=== PATIENT | female | born 1965 | race Caucasian/White ===

== ENCOUNTER → 2017-12-03 11:33 | Outpatient (POV) | payer OTHER, SELFPAY ==
[2017-12-03 11:39] VITALS: BP 107/75; PULSE 105; RESP 18; O2SAT 99
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
== END ==
PROVIDERS: PCP Nurse Practitioner; Visit Provider Nurse Anesthetist, Certified Registered
DX: M51.36 Other intervertebral disc degeneration, lumbar region (principal); M51.34 Other intervertebral disc degeneration, thoracic region
CPT/HCPCS: 99202

== ENCOUNTER → 2017-12-28 09:53 | Day surgery (SDC) | payer OTHER, SELFPAY ==
[2017-12-28 10:00] VITALS: BP 109/74; PULSE 73; RESP 18; TEMP 36.6; O2SAT 98; BMI 24.9
[2017-12-28 10:31] VITALS: BP 140/94; PULSE 71; RESP 20; O2SAT 99
[2017-12-28 10:35] VITALS: BP 128/85; PULSE 67; RESP 20; O2SAT 99
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
[2017-12-28 10:41] VITALS: BP 114/76; PULSE 73; RESP 16; O2SAT 99
== END ==
PROVIDERS: Family Provider Nurse Practitioner; PCP Nurse Practitioner; Visit Provider Anesthesiology
DX: M51.34 Other intervertebral disc degeneration, thoracic region (principal); S22.070A Wedge compression fracture of T9-T10 vertebra, initial encounter for closed fracture; V89.2XXA Person injured in unspecified motor-vehicle accident, traffic, initial encounter
CPT/HCPCS: 62321; J1040; Q9966

== ENCOUNTER → 2018-02-04 11:38 | Outpatient (POV) | payer OTHER, SELFPAY ==
[2018-02-04 11:44] VITALS: BP 116/69; PULSE 84; RESP 16; TEMP 36.7; O2SAT 98; BMI 26.2
--- NOTE | 2018-02-04 12:01 | HMH.PAINSOAP ---
[facility] Pain Management SOAP Note Subjective:: Patient is a pleasant 52-year-old white female who presents today after a thoracic epidural steroid injection. Patient reports 100% relief in her back pain. However she is now having increased right SI joint pain along with migraines. Patient has a history of migraines. She remembers taking something in the past however she is unsure of what. She states she had a migraine today that was so bad she was vomiting. She also is having charley horses and muscle cramps in her leg as well. Patient is currently on Lyrica 150 mg 1 p.o. twice daily she states that this does help her pain significantly. She denies any side effects to this medication. ROS General: no fever Respiratory: no cough, no shortness of air Cardiovascular/Peripheral Vascular: No chest pain, no edema, no shortness of breath. Gastrointestinal: no new onset incontinence Genitourinary: no new onset incontinence Musculoskeletal: Back pain, migraines, right SI pain Psychiatric: normal mood/ affect, Neurological: Migraines Objective:: Physical Exam General: Alert and oriented x3, no acute distress, pleasant and cooperative, [on room air] Lungs: Resps E/U, Symmetrical chest expansion, Eyes: PERRL Musculoskeletal: Flexion and extension of thoracic spine somewhat guarded secondary to pain, deep tendon reflexes normal, strength in upper and lower extremities [5/5], nightly antalgic gait noted, positive Surendra's test on the right side Neurological: speech clear, booster pump oiler equal, no gross sensory deficits Assessment:: Degenerative disc disease of the thoracic spine, previous compression fracture at T10. Right sacroiliitis, migraines Plan:: We will plan a SI joint injection for the patient on the right. Patient has tried anti-inflammatories with no relief. Patient has had good relief with injections in the past. Patient is taking Lyrica 150 mg twice daily. She takes this from her primary care physician we discussed increasing this to 3 times a day. If the primary care physician is not wanting to take over that I explained to the patient that we would be happy to take over. We will also call in Imitrex 25 mg 1 p.o. at onset of migraine to her your repeated 2 hours after if no relief. I will give her 15 pills. This note was dictated using voice recognition software and may contain errors or omissions
--- NOTE | 2018-02-04 12:04 | P.CONS_ITS ---
[facility] Pain Management SOAP Note Subjective:: Patient is a pleasant 52-year-old white female who presents today after a thoracic epidural steroid injection. Patient reports 100% relief in her back pain. However she is now having increased right SI joint pain along with migraines. Patient has a history of migraines. She remembers taking something in the past however she is unsure of what. She states she had a migraine today that was so bad she was vomiting. She also is having charley horses and muscle cramps in her leg as well. Patient is currently on Lyrica 150 mg 1 p.o. twice daily she states that this does help her pain significantly. She denies any side effects to this medication. ROS General: no fever Respiratory: no cough, no shortness of air Cardiovascular/Peripheral Vascular: No chest pain, no edema, no shortness of breath. Gastrointestinal: no new onset incontinence Genitourinary: no new onset incontinence Musculoskeletal: Back pain, migraines, right SI pain Psychiatric: normal mood/ affect, Neurological: Migraines Objective:: Physical Exam General: Alert and oriented x3, no acute distress, pleasant and cooperative, [ on room air] Lungs: Resps E/U, Symmetrical chest expansion, Eyes: PERRL Musculoskeletal: Flexion and extension of thoracic spine somewhat guarded secondary to pain, deep tendon reflexes normal, strength in upper and lower extremities [5/5], nightly antalgic gait noted, positive Surendra's test on the right side Neurological: speech clear, instrumentation technician equal, no gross sensory deficits Assessment:: Degenerative disc disease of the thoracic spine, previous compression fracture at T10. Right sacroiliitis, migraines Plan:: We will plan a SI joint injection for the patient on the right. Patient has tried anti-inflammatories with no relief. Patient has had good relief with injections in the past. Patient is taking Lyrica 150 mg twice daily. She takes this from her primary care physician we discussed increasing this to 3 times a day. If the primary care physician is not wanting to take over that I explained to the patient that we would be happy to take over. We will also call in Imitrex 25 mg 1 p.o. at onset of migraine to her your repeated 2 hours after if no relief. I will give her 15 pills. This note was dictated using voice recognition software and may contain errors or omissions
--- NOTE | 2018-02-04 16:34 | PC.PHONENOTE ---
called in Rx for Imitrex 25mg at onset of migraine, may repeat dose in 2 hours if migraine unrelieved, #15 with no refills. Rx called in to [facility] pharmacy
== END ==
PROVIDERS: Family Provider Nurse Practitioner; PCP Nurse Practitioner; Visit Provider Clinical Nurse Specialist Family Health
DX: M51.34 Other intervertebral disc degeneration, thoracic region (principal)
CPT/HCPCS: 99212

== ENCOUNTER 2018-02-15 14:23 | Day surgery (SDC) | payer OTHER, SELFPAY ==
[2018-02-15 14:53] VITALS: BP 119/79; PULSE 86; RESP 18; TEMP 36.7; O2SAT 98; BMI 26.7
--- NOTE | 2018-02-15 14:56 | PC.NURSE ---
PATIENT ALERT, ORIENTED AND APPEARS WITH NO DISTRESS DURING ASSESSMENT. NO LABORED BREATHING NOTED.
[2018-02-15 15:29] VITALS: BP 158/45; PULSE 81; RESP 20
[2018-02-15 15:30] VITALS: BP 145/58; PULSE 85; RESP 18
[2018-02-15 15:35] VITALS: BP 123/78; PULSE 77; RESP 16; O2SAT 100
--- NOTE | 2018-02-15 15:38 | HMH.PMPROC ---
- Procedure Date: 02/15/18 Time: 15:30 Anesthesiologist:: Kody Vela MD Complications:: None Pre-procedure Diagnosis:: Right sacroiliitis Post-procedure Diagnosis:: same Indications for Procedure:: This patient is a pleasant 52-year-old white female who presents today for right SI joint injection. Patient is having extreme point tenderness over right SI and numbness and tingling in her right leg. Patient is having difficulty sleeping. Patient rates the pain a 5 out of 10 today. Patient has been told the risks and benefits of the injection and she wishes to proceed with it. Patient has increased her Lyrica 150 mg to 3 times a day. She states that this has helped. We will take this over from her primary care physician. Procedure Details:: Right SI joint injection under fluoroscopy Informed consent was obtained and the risks and benefits of the procedure was going to the patient. Patient was taken to the procedure room. Patient was placed prone on the procedure table. The right hip was prepped using ChloraPrep. The skin and subcutaneous tissues were anesthetized using lidocaine. I placed a 22-gauge spinal needle into the inferior aspect of the right SI joint. Needle placement was confirmed with dye. After this we injected 5 mL bupivacaine 0.25% and Depo-Medrol 40 mg into the right SI joint. The patient tolerated the procedure well with no complication. Plan and Disposition:: We will follow-up with this patient in 2-3 weeks and reassess her symptoms at that time. We will take over her Lyrica 150 mg 1 p.o. 3 times daily. She has been instructed to call the office if she needs anything prior to her appointment.
== END 2018-02-15 15:40 | disposition home or self-care (01) ==
LOC: SC.PAINP 14:24
PROVIDERS: Family Provider Nurse Practitioner; PCP Nurse Practitioner; Visit Provider Anesthesiology
DX: M46.1 Sacroiliitis, not elsewhere classified (principal)
CPT/HCPCS: 27096; G0260; J1040; Q9966

== ENCOUNTER → 2018-03-04 13:14 | Outpatient (POV) | payer OTHER, SELFPAY ==
[2018-03-04 13:24] VITALS: BP 101/67; PULSE 84; RESP 18; TEMP 36.6; O2SAT 98; BMI 25.2
--- NOTE | 2018-03-04 13:42 | HMH.PAINSOAP ---
[facility] Pain Management SOAP Note Subjective:: Patient is a pleasant 52-year-old white female who presents today for follow-up after right SI injection. Patient states that this is helped with her right SI pain and denies having any pain at this time. She does have increased bursa pain bilateral hips. She states she just saw Dr. Nick Max who stated that this was due to her scoliosis. Dr. Max took her off her anti-inflammatories because she stated they were not helping very much. Patient states that Dr. Max wanted her to go to physical therapy but she was not interested in that at this time. She is interested in trying a different anti-inflammatory other than meloxicam. Patient also is on Lyrica 150 mg 1 p.o. 3 times daily. She states that this is helped significantly. Patient rates her pain a 5 out of 10 today. Patient has never tried a back brace. ROS General: no recent weight change, no fever, no sleep disturbances Respiratory: no cough, no shortness of air, no recurring pulmonary infections Cardiovascular/Peripheral Vascular: No chest pain, No palpitations, no edema, no shortness of breath. Gastrointestinal: no incontinence, normal bowel movements reported Genitourinary: no incontinence Musculoskeletal: Back pain, hip pain Psychiatric: normal mood/ affect Neurological: [denies weakness in extremities], [denies balance issues] Objective:: Physical Exam General: Alert and oriented x3, no acute distress, pleasant and cooperative, [on room air] Lungs: Resps E/U, Symmetrical chest expansion Eyes: PERRL Musculoskeletal: Flexion and extension of lumbar spine somewhat guarded secondary to pain, deep tendon reflexes normal, strength in upper and lower extremities [5/5], antalgic gait noted, extreme point tenderness over bilateral trochanteric bursa. Neurological: speech clear, public information officer equal, no gross sensory deficits Assessment:: Greater trochanteric bursitis of bilateral hips, sacroiliitis, low back pain Plan:: We will call in this patient 1 month of diclofenac 75 mg 1 p.o. twice daily. She is to continue her Lyrica 150 mg 1 p.o. 3 times daily. We will also give her a back brace to see if this helps stabilize her. We discussed potentially doing bursa injections in the future. I will follow-up with her in 1 month. This note was dictated using voice recognition software and may contain errors or omissions
--- NOTE | 2018-03-04 13:45 | P.CONS_ITS ---
[facility] Pain Management SOAP Note Subjective:: Patient is a pleasant 52-year-old white female who presents today for follow-up after right SI injection. Patient states that this is helped with her right SI pain and denies having any pain at this time. She does have increased bursa pain bilateral hips. She states she just saw Dr. Nick Max who stated that this was due to her scoliosis. Dr. Max took her off her anti-inflammatories because she stated they were not helping very much. Patient states that Dr. Max wanted her to go to physical therapy but she was not interested in that at this time. She is interested in trying a different anti-inflammatory other than meloxicam. Patient also is on Lyrica 150 mg 1 p.o. 3 times daily. She states that this is helped significantly. Patient rates her pain a 5 out of 10 today. Patient has never tried a back brace. ROS General: no recent weight change, no fever, no sleep disturbances Respiratory: no cough, no shortness of air, no recurring pulmonary infections Cardiovascular/Peripheral Vascular: No chest pain, No palpitations, no edema, no shortness of breath. Gastrointestinal: no incontinence, normal bowel movements reported Genitourinary: no incontinence Musculoskeletal: Back pain, hip pain Psychiatric: normal mood/ affect Neurological: [denies weakness in extremities], [denies balance issues] Objective:: Physical Exam General: Alert and oriented x3, no acute distress, pleasant and cooperative, [ on room air] Lungs: Resps E/U, Symmetrical chest expansion Eyes: PERRL Musculoskeletal: Flexion and extension of lumbar spine somewhat guarded secondary to pain, deep tendon reflexes normal, strength in upper and lower extremities [5/5], antalgic gait noted, extreme point tenderness over bilateral trochanteric bursa. Neurological: speech clear, tax expert equal, no gross sensory deficits Assessment:: Greater trochanteric bursitis of bilateral hips, sacroiliitis, low back pain Plan:: We will call in this patient 1 month of diclofenac 75 mg 1 p.o. twice daily. She is to continue her Lyrica 150 mg 1 p.o. 3 times daily. We will also give her a back brace to see if this helps stabilize her. We discussed potentially doing bursa injections in the future. I will follow-up with her in 1 month. This note was dictated using voice recognition software and may contain errors or omissions
--- NOTE | 2018-03-05 13:06 | PC.PHONENOTE ---
03/04/18-called in Rx for Diclofenac 75mg BID wiht no refills to pt's pharmacy
== END ==
PROVIDERS: Family Provider Nurse Practitioner; PCP Nurse Practitioner; Visit Provider Clinical Nurse Specialist Family Health
DX: M70.62 Trochanteric bursitis, left hip (principal); M70.61 Trochanteric bursitis, right hip
CPT/HCPCS: 99212

== ENCOUNTER → 2018-03-25 14:06 | Outpatient (POV) | payer OTHER, SELFPAY ==
[2018-03-25 14:14] VITALS: BP 103/50; PULSE 102; RESP 18; TEMP 36.6; O2SAT 99; BMI 26.9
--- NOTE | 2018-03-25 14:34 | HMH.PAINSOAP ---
[facility] Pain Management SOAP Note Subjective:: This patient is a pleasant 52-year-old white female who we have been treating for right hip pain. She previously had a right SI joint injection which helped her tremendously. She is also had a previous thoracic epidural steroid injection in the area of the T10 compression fracture. She did very well from her previous injections. Her pain is starting to return in her mid back in the area of the T10 compression fracture. I do believe she would be a candidate for repeat thoracic epidural steroid injection. She continues on Lyrica 150 mg 3 times a day as well as her diclofenac 75 mg twice a day. Objective:: Alert and oriented ?3 no acute distress. Patient does have an antalgic gait. She is tender over the midline of the thoracic spine. Motor strength of the lower extremities is 5/5. There is no gross sensory deficit. Assessment:: Previous T10 compression fracture with mid back pain and thoracic radicular symptoms. Plan:: We will seek approval for repeat thoracic epidural steroid injection at T10-T11. She has had great benefit from this in the past. Her pain is starting to return. We will plan on a thoracic epidural steroid injection as soon as approved at T10-T11.
== END ==
PROVIDERS: Family Provider Nurse Practitioner; PCP Nurse Practitioner; Visit Provider Anesthesiology
DX: M54.14 Radiculopathy, thoracic region (principal)
CPT/HCPCS: 99212

== ENCOUNTER → 2018-03-26 09:24 | Outpatient (CLI) | payer OTHER, SELFPAY ==
--- NOTE | 2018-03-26 09:29 | CT_ITS ---
CT abdomen pelvis w con CLINICAL INDICATION: Mid abdominal pressure, possible hernia ITS.REASON: VENTRAL HERNIA ORDERING PHYSICIAN: Surekha Cotto PATIENT AGE: 52 years TECHNIQUE: Axial images obtained with sagittal and coronal reformats. All CT scans at the facility use one or more dose reduction, viz: automated exposure control; ma/kV adjustment per patient size (including targeted exams where dose is matched to indication; i.e. head); or iterative reconstruction technique. PROCEDURE: Oral Contrast: Redicat IV Contrast: 75 mL's of Isovue-370. FINDINGS: Lung bases are clear. The liver, spleen, adrenal glands, pancreas, and kidneys have an unremarkable appearance. There has been a prior cholecystectomy. No ductal dilatation. No intestinal obstruction or free air. No evidence of appendicitis intestinal obstruction or free air or diverticulitis. There is mild amount retained colonic feces. There is a tiny umbilical hernia containing fat. No other abdominal wall hernia is evident. Surgical clips are present in the external iliac region bilaterally. Scattered small lymph nodes are present in the inguinal region. No adenopathy. Prior hysterectomy. No acute bony anomalies. IMPRESSION: 1. No acute abdominal or pelvic findings. 2. Tiny umbilical hernia. No other abdominal wall hernia 3. Mild amount retained colonic feces/constipation
== END ==
PROVIDERS: Family Provider Nurse Practitioner; PCP Nurse Practitioner; Visit Provider Nurse Practitioner Family
DX: K43.9 Ventral hernia without obstruction or gangrene (principal)
CPT/HCPCS: 74177; Q9967

== ENCOUNTER → 2018-04-01 13:30 | Outpatient (POV) | payer OTHER, SELFPAY ==
[2018-04-01 13:32] VITALS: BP 102/74; PULSE 104; RESP 18; TEMP 36.8; O2SAT 99; BMI 27.1
--- NOTE | 2018-04-01 14:26 | HMH.PAINSOAP ---
[facility] Pain Management SOAP Note Subjective:: Patient is a pleasant 52-year-old white female who presents today for follow-up. Patient is on the schedule for thoracic epidural steroid injection at T10-T11 due to chronic compression fracture. Patient wanted to discuss today her right SI joint pain. Patient has had injections in the past and her right SI with significant relief up to 80% for 8 weeks. Patient states that she is now starting to have this pain returned. Patient is wearing her back brace she states it does help a little bit. She continues on her Lyrica 150 mg 1 p.o. 3 times daily. Patient states the diclofenac that she is on has not been working for her and would like to try a different anti-inflammatory. Patient has not tried the Celebrex. She rates her pain an 8 out of 10 today. ROS General: no recent weight change, no fever, no sleep disturbances Respiratory: no cough, no shortness of air, no recurring pulmonary infections Cardiovascular/Peripheral Vascular: No chest pain, No palpitations, no edema, no shortness of breath. Gastrointestinal: no incontinence, normal bowel movements reported Genitourinary: no incontinence Musculoskeletal: SI joint pain, thoracic back pain Psychiatric: normal mood/ affect, [denies depression], [denies anxiety] Neurological: [denies weakness in extremities], [denies balance issues] Objective:: Physical Exam General: Alert and oriented x3, no acute distress, pleasant and cooperative, [on room air] Lungs: Resps E/U, Symmetrical chest expansion, Eyes: PERRL Musculoskeletal: Flexion and extension of thoracic spine somewhat guarded secondary to pain, deep tendon reflexes normal, strength in upper and lower extremities [5/5], [abnormal gait noted], positive Surendra's test on the right side, extreme point tenderness over right SI joint Neurological: speech clear, 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 Patient has had good relief with these in the past. Patient failed anti-inflammatories, medications, physical therapy. We will try the patient also on Celebrex 100 mg 1 p.o. twice daily. I will follow-up with this patient after her injection. This note was dictated using voice recognition software and may contain errors or omissions
--- NOTE | 2018-04-01 14:29 | P.CONS_ITS ---
[facility] Pain Management SOAP Note Subjective:: Patient is a pleasant 52-year-old white female who presents today for follow- up. Patient is on the schedule for thoracic epidural steroid injection at T10- T11 due to chronic compression fracture. Patient wanted to discuss today her right SI joint pain. Patient has had injections in the past and her right SI with significant relief up to 80% for 8 weeks. Patient states that she is now starting to have this pain returned. Patient is wearing her back brace she states it does help a little bit. She continues on her Lyrica 150 mg 1 p.o. 3 times daily. Patient states the diclofenac that she is on has not been working for her and would like to try a different anti-inflammatory. Patient has not tried the Celebrex. She rates her pain an 8 out of 10 today. ROS General: no recent weight change, no fever, no sleep disturbances Respiratory: no cough, no shortness of air, no recurring pulmonary infections Cardiovascular/Peripheral Vascular: No chest pain, No palpitations, no edema, no shortness of breath. Gastrointestinal: no incontinence, normal bowel movements reported Genitourinary: no incontinence Musculoskeletal: SI joint pain, thoracic back pain Psychiatric: normal mood/ affect, [denies depression], [denies anxiety] Neurological: [denies weakness in extremities], [denies balance issues] Objective:: Physical Exam General: Alert and oriented x3, no acute distress, pleasant and cooperative, [ on room air] Lungs: Resps E/U, Symmetrical chest expansion, Eyes: PERRL Musculoskeletal: Flexion and extension of thoracic spine somewhat guarded secondary to pain, deep tendon reflexes normal, strength in upper and lower extremities [5/5], [abnormal gait noted], positive Surendra's test on the right side, extreme point tenderness over right SI joint Neurological: speech clear, galley worker equal, no gross sensory deficits Assessment:: Sacroiliitis, previous T10 compression fracture with mid back pain and thoracic radicular symptoms Plan:: We will seek approval for a SI joint injection on the right side as well. Patient has had good relief with these in the past. Patient failed anti- inflammatories, medications, physical therapy. We will try the patient also on Celebrex 100 mg 1 p.o. twice daily. I will follow-up with this patient after her injection. This note was dictated using voice recognition software and may contain errors or omissions
--- NOTE | 2018-04-01 16:16 | PC.PHONENOTE ---
called in Rx for Celebrex 100mg BID with 1 refill
== END ==
PROVIDERS: Family Provider Nurse Practitioner; PCP Nurse Practitioner; Visit Provider Clinical Nurse Specialist Family Health
DX: M46.1 Sacroiliitis, not elsewhere classified (principal); M54.14 Radiculopathy, thoracic region
CPT/HCPCS: 99212

== ENCOUNTER → 2018-05-07 14:30 | Outpatient (CLI) | payer OTHER, SELFPAY ==
--- NOTE | 2018-05-07 14:34 | XR_ITS ---
XR foot wt bearing LT 3V HISTORY: Foot pain ITS.REASON: pain ORDERING PHYSICIAN: Debbie العراقي DPM PATIENT AGE: 52 years COMPARISON: None FINDINGS: No fracture or dislocation. No lytic or blastic change. There is normal mineralization.. The joint spaces are well-preserved. No significant degenerative/arthritic changes. No erosive changes evident. IMPRESSION: Negative, no acute finding
--- NOTE | 2018-05-07 14:34 | XR_ITS ---
XR foot wt bearing RT 3V HISTORY: Pain, foot pain ITS.REASON: pain ORDERING PHYSICIAN: Debbie العراقي DPM PATIENT AGE: 52 years COMPARISON: None FINDINGS: No fracture or dislocation. No lytic or blastic change. There is normal mineralization.. The joint spaces are well-preserved. No significant degenerative/arthritic changes. No erosive changes evident. IMPRESSION: Negative, no acute finding
== END ==
PROVIDERS: PCP Nurse Practitioner; Visit Provider Podiatrist
DX: M79.671 Pain in right foot (principal); M79.672 Pain in left foot
CPT/HCPCS: 73630

== ENCOUNTER → 2018-06-10 11:16 | Outpatient (POV) | payer OTHER, SELFPAY ==
[2018-06-10 11:27] VITALS: BP 111/83; PULSE 104; RESP 18; O2SAT 98; BMI 27.8
--- NOTE | 2018-06-10 11:34 | HMH.PAINSOAP ---
[facility] Pain Management SOAP Note Subjective:: Patient is a pleasant 52-year-old white female who is following up after recent thoracic epidural steroid injection. Patient is doing much better today. She rates her pain 3 out of 10 today. Patient has been going to podiatry along with acupuncture in getting stability tape placed. Patient's doing well she has had a lift in her shoe she states that her pain has decreased since then. Patient states she would like to switch back from Lyrica to gabapentin due to weight gain I believe it would be okay. Patient has had gabapentin in the past with no issues. Patient was put on meloxicam by her puttier entered she was not taking any other NSAIDs. ROS General: no recent weight change, no fever, no sleep disturbances Respiratory: no cough, no shortness of air, no recurring pulmonary infections Cardiovascular/Peripheral Vascular: No chest pain, No palpitations, no edema, no shortness of breath. Gastrointestinal: no incontinence, normal bowel movements reported Genitourinary: no incontinence Musculoskeletal: Back pain Psychiatric: normal mood/ affect Neurological: [denies weakness in extremities], [denies balance issues] Objective:: Physical Exam General: Alert and oriented x3, no acute distress, pleasant and cooperative, [on room air] Lungs: Resps E/U, Symmetrical chest expansion Eyes: PERRL Musculoskeletal: Flexion and extension of lumbar spine somewhat guarded secondary to pain, deep tendon reflexes normal, strength in upper and lower extremities [5/5], slightly antalgic gait noted Neurological: speech clear, 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 3 times daily for the patient. Patient's [facility] #[id number] reviewed and appropriate. Dr. Vela is reviewed this chart and agrees with this plan of care. Patient is to continue with her acupuncture and podiatry. Patient's been instructed to call the office if she has any issues prior to her next appointment. This note was dictated using voice recognition software and may contain errors or omissions
--- NOTE | 2018-06-10 11:37 | P.CONS_ITS ---
[facility] Pain Management SOAP Note Subjective:: Patient is a pleasant 52-year-old white female who is following up after recent thoracic epidural steroid injection. Patient is doing much better today. She rates her pain 3 out of 10 today. Patient has been going to podiatry along with acupuncture in getting stability tape placed. Patient's doing well she has had a lift in her shoe she states that her pain has decreased since then. Patient states she would like to switch back from Lyrica to gabapentin due to weight gain I believe it would be okay. Patient has had gabapentin in the past with no issues. Patient was put on meloxicam by her enrolled nurse entered she was not taking any other NSAIDs. ROS General: no recent weight change, no fever, no sleep disturbances Respiratory: no cough, no shortness of air, no recurring pulmonary infections Cardiovascular/Peripheral Vascular: No chest pain, No palpitations, no edema, no shortness of breath. Gastrointestinal: no incontinence, normal bowel movements reported Genitourinary: no incontinence Musculoskeletal: Back pain Psychiatric: normal mood/ affect Neurological: [denies weakness in extremities], [denies balance issues] Objective:: Physical Exam General: Alert and oriented x3, no acute distress, pleasant and cooperative, [ on room air] Lungs: Resps E/U, Symmetrical chest expansion Eyes: PERRL Musculoskeletal: Flexion and extension of lumbar spine somewhat guarded secondary to pain, deep tendon reflexes normal, strength in upper and lower extremities [5/5], slightly antalgic gait noted Neurological: speech clear, home care coordinator equal, no gross sensory deficits Assessment:: Degenerative disc disease of the lumbar spine and thoracic spine Plan:: We will follow-up with the patient in 3 months we will call in gabapentin 300 mg p.o. 3 times daily for the patient. Patient's [facility] #[id number] reviewed and appropriate. Dr. Vela is reviewed this chart and agrees with this plan of care. Patient is to continue with her acupuncture and podiatry. Patient's been instructed to call the office if she has any issues prior to her next appointment. This note was dictated using voice recognition software and may contain errors or omissions
== END ==
PROVIDERS: Family Provider Nurse Practitioner; PCP Nurse Practitioner; Visit Provider Clinical Nurse Specialist Family Health
DX: M51.36 Other intervertebral disc degeneration, lumbar region (principal); M51.34 Other intervertebral disc degeneration, thoracic region
CPT/HCPCS: 99212

== ENCOUNTER → 2018-08-19 10:20 | Outpatient (POV) | payer OTHER, SELFPAY ==
[2018-08-19 10:35] VITALS: BP 112/76; PULSE 83; RESP 18; O2SAT 98; BMI 25.7
--- NOTE | 2018-08-19 10:47 | HMH.PAINSOAP ---
[facility] Pain Management SOAP Note Subjective:: Patient is a 52-year-old white female who presents today for follow-up. Patient has been trying some alternative therapies for her low back and neck pain. Patient has tried cupping which made it worse. Patient had a injection in her foot which she states did help quite a bit. Patient is currently on meloxicam. Patient and I had discussed in neurostimulator in the past however at this time she is not interested in it. Patient rates her pain a 5 out of 10 today. Patient is currently on gabapentin 300 mg 1 p.o. 3 times daily she states that this helps up to 60% at times. Patient's [facility] reviewed and appropriate. Patient would like an injection in her right hip. Patient has extreme tenderness over her right greater trochanteric bursa. Patient would also like to talk about physical therapy and dry needling. ROS General: no recent weight change, no fever, no sleep disturbances Respiratory: no cough, no shortness of air, no recurring pulmonary infections Cardiovascular/Peripheral Vascular: No chest pain, No palpitations, no edema, no shortness of breath. Gastrointestinal: no incontinence, normal bowel movements reported Genitourinary: no incontinence Musculoskeletal: Right hip pain, low back pain, neck pain Psychiatric: normal mood/ affect Neurological: [denies weakness in extremities], [denies balance issues] Objective:: Physical Exam General: Alert and oriented x3, no acute distress, pleasant and cooperative, [on room air] Lungs: Resps E/U, Symmetrical chest expansion, Eyes: PERRL Musculoskeletal: Flexion and extension of lumbar and cervical spine somewhat guarded secondary to pain, deep tendon reflexes normal, strength in upper and lower extremities [5/5], antalgic gait noted, extreme point tenderness over right greater trochanteric bursa Neurological: speech clear, medical aide equal, no gross sensory deficits Assessment:: Degenerative disc disease lumbar spine, greater trochanteric bursitis, neck pain, myofascial pain Plan:: We will schedule right greater trochanteric bursa injection for the patient. We will also set her up for dry needling with physical therapy to see if this is beneficial. Patient will continue on her gabapentin 300 mg 1 p.o. 3 times daily and her meloxicam. Patient's [facility] has been appropriate. Dr. Vela is reviewed this chart and agrees with this plan of care. This note was dictated using voice recognition software and may contain errors or omissions
--- NOTE | 2018-08-19 10:50 | P.CONS_ITS ---
[facility] Pain Management SOAP Note Subjective:: Patient is a 52-year-old white female who presents today for follow-up. Patient has been trying some alternative therapies for her low back and neck pain. Patient has tried cupping which made it worse. Patient had a injection in her foot which she states did help quite a bit. Patient is currently on meloxicam. Patient and I had discussed in neurostimulator in the past however at this time she is not interested in it. Patient rates her pain a 5 out of 10 today. Patient is currently on gabapentin 300 mg 1 p.o. 3 times daily she states that this helps up to 60% at times. Patient's [facility] reviewed and appropriate. Patient would like an injection in her right hip. Patient has extreme tend erness over her right greater trochanteric bursa. Patient would also like to talk about physical therapy and dry needling. ROS General: no recent weight change, no fever, no sleep disturbances Respiratory: no cough, no shortness of air, no recurring pulmonary infections Cardiovascular/Peripheral Vascular: No chest pain, No palpitations, no edema, no shortness of breath. Gastrointestinal: no incontinence, normal bowel movements reported Genitourinary: no incontinence Musculoskeletal: Right hip pain, low back pain, neck pain Psychiatric: normal mood/ affect Neurological: [denies weakness in extremities], [denies balance issues] Objective:: Physical Exam General: Alert and oriented x3, no acute distress, pleasant and cooperative, [on room air] Lungs: Resps E/U, Symmetrical chest expansion, Eyes: PERRL Musculoskeletal: Flexion and extension of lumbar and cervical spine somewhat guarded secondary to pain, deep tendon reflexes normal, strength in upper and lower extremities [5/5], antalgic gait noted, extreme point tenderness over right greater trochanteric bursa Neurological: speech clear, corporate administrator equal, no gross sensory deficits Assessment:: Degenerative disc disease lumbar spine, greater trochanteric bursitis, neck pain, myofascial pain Plan:: We will schedule right greater trochanteric bursa injection for the patient. We will also set her up for dry needling with physical therapy to see if this is beneficial. Patient will continue on her gabapentin 300 mg 1 p.o. 3 times daily and her meloxicam. Patient's [facility] has been appropriate. Dr. Vela is reviewed this chart and agrees with this plan of care. This note was dictated using voice recognition software and may contain errors or omissions
== END ==
PROVIDERS: Family Provider Nurse Practitioner; PCP Nurse Practitioner; Visit Provider Clinical Nurse Specialist Family Health
DX: M51.36 Other intervertebral disc degeneration, lumbar region (principal); M70.61 Trochanteric bursitis, right hip; M54.2 Cervicalgia
CPT/HCPCS: 99213

== ENCOUNTER 2018-08-29 15:30 | Outpatient (RCR) | payer OTHER, SELFPAY ==
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
== END 2018-08-29 15:31 | disposition home or self-care (01) ==
LOC: PT 15:30
PROVIDERS: Family Provider Nurse Practitioner; PCP Nurse Practitioner; Visit Provider Clinical Nurse Specialist Family Health
DX: M54.2 Cervicalgia (principal); M54.6 Pain in thoracic spine; M25.551 Pain in right hip
CPT/HCPCS: 97010; 97014; 97140; 97163; G0283

== ENCOUNTER → 2018-09-16 13:23 | Outpatient (POV) | payer OTHER, SELFPAY ==
[2018-09-16 13:42] VITALS: BP 107/76; PULSE 110; RESP 18; O2SAT 98; BMI 21.4
--- NOTE | 2018-09-16 14:10 | P.CONS_ITS ---
[facility] Pain Management SOAP Note Subjective:: Patient is a pleasant 52-year-old white female who presents today for follow-up after right greater trochanteric bursa injection. Patient states that her pain is 90% relieved in this area. Patient states her low back is what is giving her trouble today she rates her pain a 4 out of 10. Patient is also having migraines and will be getting a daith piercings soon. Patient is on gabapentin 300 mg 1 p.o. 3 times daily. Patient is wondering she can increase to 400 mg today. Patient is done well with injective therapy in the past. Patient is interested in a lower epidural injection. ROS General: no recent weight change, no fever, no sleep disturbances Respiratory: no cough, no shortness of air, no recurring pulmonary infections Cardiovascular/Peripheral Vascular: No chest pain, No palpitations, no edema, no shortness of breath. Gastrointestinal: no incontinence, normal bowel movements reported Genitourinary: no incontinence Musculoskeletal: Back pain Psychiatric: normal mood/ affect Neurological: [denies weakness in extremities], [denies balance issues] Objective:: Physical Exam General: Alert and oriented x3, no acute distress, pleasant and cooperative, [on room air] Lungs: Resps E/U, Symmetrical chest expansion, Eyes: PERRL Musculoskeletal: Flexion and extension of lumbar spine somewhat guarded secondary to pain, deep tendon reflexes normal, strength in upper and lower extremities [5/5], slightly antalgic gait noted Neurological: speech clear, 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 We will also call in gabapentin from 400 mg [address] Vela is reviewed this chart and agrees with this plan of care. I will follow-up with her after her injection. Patient is continuing a home stretching exercise program. This note was dictated using voice recognition software and may contain errors or omissions
== END ==
PROVIDERS: Family Provider Nurse Practitioner; PCP Nurse Practitioner; Visit Provider Clinical Nurse Specialist Family Health
DX: M51.16 Intervertebral disc disorders with radiculopathy, lumbar region (principal); G43.909 Migraine, unspecified, not intractable, without status migrainosus
CPT/HCPCS: 99213

== ENCOUNTER → 2018-11-06 15:46 | Outpatient (POV) | payer OTHER, SELFPAY | DX: Z00.00 Encounter for general adult medical examination without abnormal findings (principal) ==

== ENCOUNTER → 2018-12-09 15:03 | Outpatient (POV) | payer OTHER, SELFPAY ==
[2018-12-09 15:17] VITALS: BP 103/73; PULSE 98; RESP 18; O2SAT 99; BMI 23.8
--- NOTE | 2018-12-10 08:29 | HMH.PAINSOAP ---
[facility] Pain Management SOAP Note Subjective:: Is a pleasant 53-year-old white female who presents today for discussion in regards to her next moving her pain generating. Patient has degenerative disc disease thoracic and lumbar spine with radiculopathy. Patient has been getting epidural injections and SI joint injections with some relief however it has not been long-term. Patient has arthritis. Patient is on anti-inflammatories. She is also been on medications for gabapentin to help with her pain. Patient is currently going to counseling to help cope with her pain. Patient and I had a long discussion in regards to our next move. We discussed her intrathecal pain pump. I discussed with her that this is not going to be fixing her pain however it may help control it. Our goal is to get her to 50% pain relief from where she is now and much more functional. Patient would like to pursue this. She is not on any anti-inflammatories. She is tried and failed physical therapy, chiropractic therapy, massage therapy, medications, anti-inflammatories. She is continuing a home stretching program. She rates her pain an 8 out of 10 today. ROS General: no recent weight change, no fever, no sleep disturbances Respiratory: no cough, no shortness of air, no recurring pulmonary infections Cardiovascular/Peripheral Vascular: No chest pain, No palpitations, no edema, no shortness of breath. Gastrointestinal: no incontinence, normal bowel movements reported Genitourinary: no incontinence Musculoskeletal: Back pain, leg pain Psychiatric: normal mood/ affect Neurological: [denies weakness in extremities], [denies balance issues] Objective:: Physical Exam General: Alert and oriented x3, no acute distress, pleasant and cooperative, [on room air] Lungs: Resps E/U, Symmetrical chest expansion, Eyes: PERRL Musculoskeletal: Flexion and extension of lumbar spine somewhat guarded secondary to pain, deep tendon reflexes normal, strength in upper and lower extremities [5/5], [abnormal gait noted] Neurological: speech clear, interventional radiologist equal, no gross sensory deficits Assessment:: Degenerative disc disease thoracic and lumbar spine with lumbar radiculopathy Plan:: We will set up a intrathecal pain pump trial for the patient I believe that this would be beneficial. Patient is allergic to codeine however she has had morphine previously with no issue. If she is successful we will plan on an implant of a morphine intrathecal pain pump.\ This note was dictated using voice recognition software and may contain errors or omissions
== END ==
PROVIDERS: PCP Nurse Practitioner Family; Visit Provider Clinical Nurse Specialist Family Health
DX: M51.34 Other intervertebral disc degeneration, thoracic region (principal); M51.16 Intervertebral disc disorders with radiculopathy, lumbar region
CPT/HCPCS: 99213

== ENCOUNTER → 2018-12-30 14:47 | Outpatient (POV) | payer OTHER, SELFPAY ==
[2018-12-30 14:59] VITALS: BP 101/70; PULSE 100; RESP 18; O2SAT 98; BMI 25.2
--- NOTE | 2018-12-30 15:11 | P.CONS_ITS ---
[facility] Pain Management SOAP Note Subjective:: Is a pleasant 53-year-old white female who presents today for follow-up. Patient is moving towards a intrathecal pain pump trial. I believe it would be beneficial for her. She states that she has some reservations however we discussed this I did encourage her to complete the trial prior to making a decision on whether it is beneficial for her pain or not. Patient has had multiple injections but no long-term relief. She is currently on gabapentin 400 mg 1 p.o. 3 times daily. She would like to discuss changing this medication and increasing it. She denies any side effects. ROS General: no recent weight change, no fever, no sleep disturbances Respiratory: no cough, no shortness of air, no recurring pulmonary infections Cardiovascular/Peripheral Vascular: No chest pain, No palpitations, no edema, no shortness of breath. Gastrointestinal: no incontinence, normal bowel movements reported Genitourinary: no incontinence Musculoskeletal: Back pain, leg pain Psychiatric: normal mood/ affect Neurological: [denies weakness in extremities], [denies balance issues] Objective:: Physical Exam General: Alert and oriented x3, no acute distress, pleasant and cooperative, [on room air] Lungs: Resps E/U, Symmetrical chest expansion, Eyes: PERRL Musculoskeletal: Flexion and extension of lumbar spine somewhat guarded secondary to pain, deep tendon reflexes normal, strength in upper and lower extremities [5/5], [abnormal gait noted] Neurological: speech clear, linen room worker equal, no gross sensory deficits Assessment:: Degenerative disc disease lumbar spine with lumbar radiculopathy Plan:: We will set up for intrathecal pain pump trial for her. We will increase her gabapentin to 800 mg 1 p.o. twice daily. I will follow-up with her after her trial. Dr. Vela has reviewed this note and agrees with this plan of care. This note was dictated using voice recognition software and may contain errors or omissions
== END ==
PROVIDERS: PCP Nurse Practitioner; Visit Provider Clinical Nurse Specialist Family Health
DX: M51.16 Intervertebral disc disorders with radiculopathy, lumbar region (principal)
CPT/HCPCS: 99213

== ENCOUNTER → 2019-01-07 16:00 | Outpatient (CLI) | payer OTHER, SELFPAY ==
--- NOTE | 2019-01-07 16:06 | XR_ITS ---
XR foot wt bearing LT 3V HISTORY: ITS.REASON: pain ORDERING PHYSICIAN: Debbie العراقي DPM PATIENT AGE: 53 years COMPARISON: None FINDINGS: No fracture or dislocation. No lytic or blastic change. There is normal mineralization.. The joint spaces are well-preserved. No significant degenerative/arthritic changes. No erosive changes evident. IMPRESSION: Negative, no acute finding
--- NOTE | 2019-01-07 16:10 | XR_ITS ---
XR foot wt bearing RT 3V HISTORY: ITS.REASON: pain ORDERING PHYSICIAN: Debbie العراقي DPM PATIENT AGE: 53 years COMPARISON: None FINDINGS: No fracture or dislocation. No lytic or blastic change. There is normal mineralization.. The joint spaces are well-preserved. No significant degenerative/arthritic changes. No erosive changes evident. IMPRESSION: Negative, no acute finding
== END ==
PROVIDERS: PCP Nurse Practitioner; Visit Provider Podiatrist
DX: M19.071 Primary osteoarthritis, right ankle and foot (principal); M19.072 Primary osteoarthritis, left ankle and foot
CPT/HCPCS: 73630

== ENCOUNTER → 2019-01-27 15:01 | Outpatient (CLI) | payer OTHER, SELFPAY ==
--- NOTE | 2019-01-27 15:04 | XR_ITS ---
XR chest 2V HISTORY: ITS.REASON: COUGH ORDERING PHYSICIAN: Kavitha Daniels PATIENT AGE: 53 years COMPARISON: 04/16/2014 FINDINGS: The cardiomediastinal silhouette and pulmonary vascularity are within normal limits. There are slight increased markings in the right infrahilar region which may be due to an area of atelectasis or infiltrate. The remaining lungs are clear. No acute bony findings. There is lumbar scoliosis convex left. IMPRESSION: Right infrahilar infiltrate
== END ==
PROVIDERS: PCP Nurse Practitioner; Visit Provider Nurse Practitioner
DX: R05 Cough (principal)
CPT/HCPCS: 71046

== ENCOUNTER → 2019-02-28 12:05 | Outpatient (CLI) | payer OTHER, SELFPAY ==
--- NOTE | 2019-02-28 12:10 | XR_ITS ---
XR hip RT 2-3V w/pelvis Ordering Physician: Yola Moore Patient Age: 53 years: Female HISTORY: ITS.REASON: RT HIP PAIN right hip pain. TECHNIQUE: AP and frog-leg view right hip along with AP pelvis. COMPARISON : CT abdomen pelvis 07/18/2018 FINDINGS The right hip is intact with no fracture. Femoral head and neck intact. Hip joint spaces well-maintained bilaterally. Osseous pelvis is intact. Sacrum and iliac bone and pubis superior and inferior ramus appear satisfactory. Lungs are well mineralized. . very numerous vascular clips & postsurgical changes are seen along iliac chains and/or pelvic sidewalls bilaterally bilaterally.-similar appearance seen on last year CT. Mild levoscoliosis lumbar spine partially imaged. IMPRESSION: Right hip is intact. Osseous pelvis intact.
== END ==
PROVIDERS: PCP Family Medicine; Visit Provider Nurse Practitioner Family
DX: M25.551 Pain in right hip (principal)
CPT/HCPCS: 73502

== ENCOUNTER → 2019-03-18 09:52 | Outpatient (CLI) | payer OTHER, SELFPAY ==
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
== END ==
PROVIDERS: PCP Nurse Practitioner Family; Visit Provider Orthopaedic Surgery Adult Reconstructive Orthopaedic Surgery
DX: M54.5 Low back pain (principal)
CPT/HCPCS: 72148; 76376

== ENCOUNTER → 2019-03-24 09:01 | Outpatient (POV) | payer OTHER, SELFPAY ==
[2019-03-24 09:08] VITALS: BP 113/72; PULSE 69; RESP 18; O2SAT 98; BMI 25.3
--- NOTE | 2019-03-24 09:31 | P.CONS_ITS ---
[facility] Pain Management SOAP Note Subjective:: Is a pleasant 53-year-old white female who presents today for follow-up. Patient has been doing well on her anti-inflammatories. Patient is currently on gabapentin 800 mg 1 p.o. twice daily. She states that helping her however most of her pain is in her right hip. She was just seen by an orthopedic who suggested SI joint injections. I do believe that would be beneficial. She does have a positive Maulik's test, thigh thrust test, SI joint compression test and positive Martha test on the right side. She also has extreme pain over her right greater trochanteric bursa. She rates her pain a 5 out of 10 today. ROS General: no recent weight change, no fever, no sleep disturbances Respiratory: no cough, no shortness of air, no recurring pulmonary infections Cardiovascular/Peripheral Vascular: No chest pain, No palpitations, no edema, no shortness of breath. Gastrointestinal: no incontinence, normal bowel movements reported Genitourinary: no incontinence Musculoskeletal: Right hip pain Psychiatric: normal mood/ affect Neurological: [denies weakness in extremities], [denies balance issues] Objective:: Physical Exam General: Alert and oriented x3, no acute distress, pleasant and cooperative, [on room air] Lungs: Resps E/U, Symmetrical chest expansion, Eyes: PERRL Musculoskeletal: Flexion and extension of lumbar spine somewhat guarded secondary to pain, deep tendon reflexes normal, strength in upper and lower extremities [5/5], antalgic gait noted, extreme point tenderness over right greater trochanteric bursa and right SI joint. Neurological: speech clear, dairy technologist equal, no gross sensory deficits Assessment:: Sacroiliitis, bursitis Plan:: We will set up a right SI joint injection right greater trochanteric bursa injection. I will follow-up with the patient after injection and reassess her symptoms at that time she is been instructed to call the office if she has any issues prior to next appointment she has had injections in the past with good relief. Dr. Vela has reviewed this note and agrees with this plan of care. This note was dictated using voice recognition software and may contain errors or omissions
== END ==
PROVIDERS: PCP Nurse Practitioner Family; Visit Provider Clinical Nurse Specialist Family Health
DX: M46.1 Sacroiliitis, not elsewhere classified (principal); M71.9 Bursopathy, unspecified
CPT/HCPCS: 99212

== ENCOUNTER → 2019-04-28 11:02 | Outpatient (POV) | payer OTHER, SELFPAY ==
--- NOTE | 2019-04-28 11:18 | HMH.PAINSOAP ---
[facility] Pain Management SOAP Note Subjective:: Patient is a pleasant 53-year-old white female who presents today for follow-up after right SI joint injection right greater trochanteric bursa injection. Patient states that the SI joint pain has been alleviated however she rates her right hip pain 8 out of 10. She seen Dr. ORION luna for this. She has an appointment with him this . Patient is tried and failed physical therapy along with injective therapy, anti-inflammatories and medication. Patient and I have talked about implantable options however she is unsure of this at this time. I do believe that she should follow-up with her Ortho and see what is available to her in that realm. ROS General: no recent weight change, no fever, no sleep disturbances Respiratory: no cough, no shortness of air, no recurring pulmonary infections Cardiovascular/Peripheral Vascular: No chest pain, No palpitations, no edema, no shortness of breath. Gastrointestinal: no incontinence, normal bowel movements reported Genitourinary: no incontinence Musculoskeletal: Right hip pain Psychiatric: normal mood/ affect, Neurological: [denies weakness in extremities], [denies balance issues] Objective:: Physical Exam General: Alert and oriented x3, no acute distress, pleasant and cooperative, [on room air] Lungs: Resps E/U, Symmetrical chest expansion, Eyes: PERRL Musculoskeletal: Flexion and extension of lumbar spine somewhat guarded secondary to pain, deep tendon reflexes normal, strength in upper and lower extremities [5/5], slightly antalgic gait noted Neurological: speech clear, countersinker equal, no gross sensory deficits Assessment:: Arthritis, sacroiliitis, bursitis Plan:: We will see the patient back in 6 weeks reassess her at that time she is been instructed to call the office for she has any issues prior to her next appointment otherwise she will be following up with her orthopedic. Dr. Vela has reviewed this note and agrees with this plan of care. This note was dictated using voice recognition software and may contain errors or omissions
[2019-04-28 11:19] VITALS: BP 100/78; PULSE 82; RESP 18; O2SAT 98; BMI 25.3
== END ==
PROVIDERS: PCP Nurse Practitioner Family; Visit Provider Clinical Nurse Specialist Family Health
DX: M46.1 Sacroiliitis, not elsewhere classified (principal); M19.90 Unspecified osteoarthritis, unspecified site; M71.9 Bursopathy, unspecified
CPT/HCPCS: 99212

== ENCOUNTER → 2019-05-09 07:58 | Outpatient (CLI) | payer OTHER, SELFPAY ==
--- NOTE | 2019-05-09 08:04 | CT_ITS ---
CT head/brain wo con HISTORY: Headache ITS.REASON: MIGRAINES,NAUSEA ORDERING PHYSICIAN: Kavitha Daniels APRN PATIENT AGE: 53 years COMPARISON: 07/28/2009 TECHNIQUE: Axial images obtained without contrast. Brain and bone windows reviewed. All CT scans at the facility use one or more dose reduction, viz: automated exposure control, ma/kV adjustment per patient size (including targeted exams where dose is matched to indication, i.e. head), or iterative reconstruction technique. FINDINGS: No midline shift, mass effect, intracranial hemorrhage, hydrocephalus, or extra-axial fluid collection is evident. Artifact is present from right ear ring which the patient could not remove. The calvarium has an unremarkable appearance. No mastoid effusion. No sinus air-fluid levels.. IMPRESSION: Negative CT head without contrast. No acute finding
== END ==
PROVIDERS: PCP Nurse Practitioner; Visit Provider Nurse Practitioner
DX: G43.001 Migraine without aura, not intractable, with status migrainosus (principal); R11.0 Nausea
CPT/HCPCS: 70450

== ENCOUNTER → 2019-05-14 07:45 | Outpatient (CLI) | payer OTHER, SELFPAY ==
--- NOTE | 2019-05-14 07:50 | MR_ITS ---
MR hip RT wo con HISTORY: Right hip pain ITS.REASON: PAIN IN RIGHT HIP ORDERING PHYSICIAN: Ayush Paulino PATIENT AGE: 53 years COMPARISON: 02/28/2019 TECHNIQUE: Routine multiplanar multiecho sequences are performed without and with contrast. FINDINGS: There is unremarkable bone marrow signal intensity of the right hip. No fracture or dislocation. No lytic or blastic change. There are mild osteoarthritic changes of the right hip with slight decrease in the joint space. No significant effusion. The muscles about the right hip have an unremarkable appearance. There is a small amount of fluid present along the posterior aspect of the greater trochanter with some edema noted of the soft tissues overlying the greater trochanter. There is some edema of the gluteus medius at the insertion on the greater trochanter. These findings may represent greater trochanteric pain syndrome. Correlation with clinical parameters are needed. No other significant anomalies are evident. IMPRESSION: 1. The findings are compatible with greater trochanteric pain syndrome/greater trochanteric bursitis. Correlation with clinical parameters are needed. 2. No evidence of avascular necrosis, fracture, or other significant anomalies. There is minimal osteoarthritic change at the hip.
== END ==
PROVIDERS: PCP Nurse Practitioner; Visit Provider Orthopaedic Surgery Adult Reconstructive Orthopaedic Surgery
DX: M25.551 Pain in right hip (principal)
CPT/HCPCS: 73721

== ENCOUNTER → 2019-07-01 10:53 | Outpatient (POV) | payer OTHER, SELFPAY ==
--- NOTE | 2019-07-01 11:16 | P.CONS_ITS ---
[facility] Pain Management SOAP Note Subjective:: Patient is a pleasant 53-year-old white female who presents today for follow-up. Patient states that she was to be getting an injection in her greater trochanteric bursa on the right side by Dr. ORION luna however due to insurance reasons she is unable to at this time. She is here today to see if she can get it at this location. I stated we would be happy to do so. Her pain is a 10 out of 10 on her right side. She does have the right hip MRI showing bursitis. ROS General: no recent weight change, no fever, no sleep disturbances Respiratory: no cough, no shortness of air, no recurring pulmonary infections Cardiovascular/Peripheral Vascular: No chest pain, No palpitations, no edema, no shortness of breath. Gastrointestinal: no incontinence, normal bowel movements reported Genitourinary: no incontinence Musculoskeletal: Right hip pain Psychiatric: normal mood/ affect Neurological: [denies weakness in extremities], [denies balance issues] Objective:: Physical Exam General: Alert and oriented x3, no acute distress, pleasant and cooperative, [on room air] Lungs: Resps E/U, Symmetrical chest expansion, Eyes: PERRL Musculoskeletal: Flexion and extension of lumbar spine somewhat guarded secondary to pain, deep tendon reflexes normal, strength in upper and lower extremities [5/5], [abnormal gait noted] extreme point tenderness over right greater trochanteric bursa Neurological: speech clear, calculating machine mechanic equal, no gross sensory deficits Assessment:: Bursitis Plan:: Patient also wants to discuss her thoracic back pain. I told her we would reassess it at the time of her injection and move forward with a plan after that. At one point we have discussed intrathecal therapy however she is decided not to pursue this. Dr. Vela has reviewed this note and agrees with this plan of care. This note was dictated using voice recognition software and may contain errors or omissions Pain Management Hx Components *Have you ever received a pneumonia vaccine?: No *Have you received a flu vaccine this season?: Yes - *Social History *Occupational Status:: unemployed *Travel in the last 8 weeks: None
[2019-07-01 11:42] VITALS: BP 107/74; PULSE 104; RESP 18; O2SAT 98; BMI 25.7
== END ==
PROVIDERS: PCP Nurse Practitioner; Visit Provider Clinical Nurse Specialist Family Health
DX: M71.9 Bursopathy, unspecified (principal)
CPT/HCPCS: 99212

== ENCOUNTER → 2019-07-29 08:03 | Outpatient (CLI) | payer OTHER, SELFPAY ==
--- NOTE | 2019-07-29 08:09 | XR_ITS ---
PROCEDURE: XR MULTIPLE SPINE 6+V CLINICAL INDICATION: THORACIC PAIN,CERVICALGIA Neck pain COMPARISON: TSP2 THORACIC SPINE AP LAT-2VIEW from 09/27/2016 FINDINGS: Cervical spine: Normal alignment. No fracture or dislocation. No lytic or blastic change. Minimal foraminal narrowing noted bilaterally at C3-C4. Thoracic spine: Mild thoracic curvature convex right and mild lumbar curvature convex left severe wedge compression changes involve the T10 vertebral body greater along the left aspect. This is chronic in nature with kyphosis at that region. IMPRESSION: Cervical spine: No acute finding. Minimal bilateral foraminal narrowing C3-C4 Thoracic spine: Severe wedging of T10 which appears chronic. Dictated by: Nacho Bennett MD 07/29/2019 09:19 Signed by: <Electronically signed by Nacho Bennett MD in [place]> 07/29/2019 09:19
== END ==
PROVIDERS: PCP Nurse Practitioner Family; Visit Provider Nurse Practitioner Family
DX: M54.2 Cervicalgia (principal); M54.6 Pain in thoracic spine
CPT/HCPCS: 72084

== ENCOUNTER → 2019-08-08 12:23 | Outpatient (CLI) | payer OTHER, SELFPAY ==
--- NOTE | 2019-08-08 12:52 | MR_ITS ---
PROCEDURE: MR THORACIC SPINE WO CON CLINICAL INDICATION: CERVICALGIA, DIZZINESS, PAIN IN THORACIC SPINE Thoracic spine pain back pain, history of compression fracture. Right-sided mid back pain COMPARISON: TSW/O MRI-T-SPINE W/O from 09/13/2017 TECHNIQUE: Routine multiplanar multi echo sequences are performed without gadolinium enhancement. FINDINGS: Chronic wedge compression changes are present at T10 with loss of height anteriorly of approximately 50 percent similar to the previous exam. There is kyphosis at that level. The spinal cord has an unremarkable appearance and ends at the L2 level. No retropulsion apparent. No cord compression. No canal stenosis IMPRESSION: Chronic wedge compression changes of T10 with kyphosis. No change with no acute finding Dictated by: Nacho Bennett MD 08/08/2019 17:07 Electronically signed by Nacho Bennett MD in [place] 08/08/2019 17:07
--- NOTE | 2019-08-08 12:52 | MR_ITS ---
PROCEDURE: MR CERVICAL SPINE WO CON CLINICAL INDICATION: CERVICALGIA, DIZZINESS, PAIN IN THORACIC SPINE Left-sided neck pain COMPARISON: No exams were available for comparison TECHNIQUE: Standard multiplanar multiecho sequences are performed without contrast. 3-D MIP and myelographic images are also rendered and reviewed FINDINGS: Normal alignment. The cranial cervical junction has an unremarkable appearance. C2-C3: Unremarkable. C3-C4: Mild bilateral foraminal narrowing from facet hypertrophic change. C4-C5: Unremarkable. C5-C6: Unremarkable. C6-C7: Unremarkable. C7-T1: Unremarkable. No disc herniation canal stenosis or other significant anomaly apparent. IMPRESSION: 1. Mild bilateral foraminal narrowing at C3-C4 from facet hypertrophic change. 2. Otherwise negative MRI of the cervical spine Dictated by: Nacho Bennett MD 08/08/2019 17:02 Electronically signed by Nacho Bennett MD in [place] 08/08/2019 17:02
== END ==
PROVIDERS: PCP Nurse Practitioner Family; Visit Provider Nurse Practitioner Family
DX: R42 Dizziness and giddiness (principal); R20.2 Paresthesia of skin; R20.0 Anesthesia of skin; M54.2 Cervicalgia; M54.6 Pain in thoracic spine; G89.29 Other chronic pain
CPT/HCPCS: 72141; 72146; 76376

== ENCOUNTER → 2019-08-21 09:24 | Outpatient (POV) | payer OTHER, SELFPAY ==
[2019-08-21 09:40] VITALS: BP 118/75; PULSE 91; O2SAT 98; BMI 31.8
--- NOTE | 2019-08-21 12:36 | HMH.PAINSOAP ---
[facility] Pain Management SOAP Note Subjective:: Date of service 08/21/2019 Patient is a pleasant 53-year-old white female who presents today for follow-up. Patient is being treated for right-sided hip pain. She is also being treated for low back pain with lumbar radiculopathy symptoms. Patient continues to have numbness and tingling to her bilateral lower extremities and feet. Patient was on gabapentin 800 mg 1 tablet p.o. twice daily per Dr. Vela in January 2019. Since then, she did get gabapentin 400 mg from her primary care provider. She is back today for continued complaints of lower extremity pain with numbness. Patient says that she has tried Lyrica in the past for her neuropathic pain, but says that it did not give her any relief. She does rate her pain a 5 out of 10 today. She says that her pain is stabbing and constant in nature. She is requesting gabapentin 800 mg up to 4 times daily. Her is present during the exam and is answering most of the questions for the patient. Patient has been encouraged to answer provider herself, and he has been has been asked to allow his to answer all questions. Patient would also like to discuss her MRI results today. Review of Systems General: No recent weight changes, no fever, no sleep disturbances Respiratory: No cough, no shortness of air, no recurring pulmonary infections Cardiovascular/peripheral vascular: No chest pain, no palpitations, no edema, no shortness of breath Gastrointestinal: No new onset incontinence, normal bowel movements reported Genitourinary: No new onset incontinence Musculoskeletal: Back pain, bilateral lower extremity pain and numbness and tingling Psychiatric: Normal mood/affect Neurological: [Denies weakness in extremities], [denies balance issues] Objective:: Physical exam General: Alert and oriented x3, no acute distress, pleasant and cooperative, [on room air] Lungs: Respirations even and unlabored, symmetrical chest expansion Eyes: PERRL Musculoskeletal: Flexion and extension of lumbar spine somewhat guarded secondary to pain, deep tendon reflexes normal, strength in upper and lower extremities [5/5], slightly antalgic gait noted Neurological: Speech clear, ammunition and explosives handler equal, no gross sensory deficit Assessment:: Degenerative disc disease lumbar spine with lumbar radiculopathy Plan:: Patient I discussed that I would not be providing gabapentin 800 mg up to 4 times daily. She now did discuss a dosing of gabapentin 400 mg up to 5 times daily. Patient is in agreement with the dose. The patient has agreed to follow-up in the clinic in 2 weeks to see if she is gotten any relief. The patient understands that she cannot refill her gabapentin from other providers if she wishes to continue receiving the medication from us. She is in agreement. Patient is continuing with anti-inflammatories and a home stretching program she has been instructed to contact the clinic if she has any concerns before her next appointment. [facility] History Medical History: Reports:: Cancer, Migraine Denies:: Diabetes Mellitus Type 1, Diabetes Mellitus Type 2, MRSA, Seizures *Have you ever received a pneumonia vaccine?: No *Have you received a flu vaccine this season?: No Other Medical History: Reports: Anemia, Arthritis, Chemotherapy Other Surgeries: Yes: No Previous Surgery, Cholecystectomy, , Hysterectomy-Total Amputation: No Fractures: No - *Social History Smoking Status: Current every day smoker Tobacco Type: cigarettes # Packs/Day (cigarettes): 1 Alcohol Intake: never Alcohol Intake Frequency:: other *Occupational Status:: employed Housing: house Household Members: spouse, children *Travel in the last 8 weeks: None Family Hx:: Diabetes, Hyperlipidemia, Hypertension
--- NOTE | 2019-08-21 12:39 | P.CONS_ITS ---
[facility] Pain Management SOAP Note Subjective:: Date of service 08/21/2019 Patient is a pleasant 53-year-old white female who presents today for follow-up. Patient is being treated for right-sided hip pain. She is also being treated for low back pain with lumbar radiculopathy symptoms. Patient continues to have numbness and tingling to her bilateral lower extremities and feet. Patient was on gabapentin 800 mg 1 tablet p.o. twice daily per Dr. Vela in January 2019. Since then, she did get gabapentin 400 mg from her primary care provider. She is back today for continued complaints of lower extremity pain with numbness. Patient says that she has tried Lyrica in the past for her neuropathic pain, but says that it did not give her any relief. She does rate her pain a 5 out of 10 today. She says that her pain is stabbing and constant in nature. She is requesting gabapentin 800 mg up to 4 times daily. Her is present during the exam and is answering most of the questions for the patient. Patient has been encouraged to answer provider herself, and he has been has been asked to allow his to answer all questions. Patient would also like to discuss her MRI results today. Review of Systems General: No recent weight changes, no fever, no sleep disturbances Respiratory: No cough, no shortness of air, no recurring pulmonary infections Cardiovascular/peripheral vascular: No chest pain, no palpitations, no edema, no shortness of breath Gastrointestinal: No new onset incontinence, normal bowel movements reported Genitourinary: No new onset incontinence Musculoskeletal: Back pain, bilateral lower extremity pain and numbness and tingling Psychiatric: Normal mood/affect Neurological: [Denies weakness in extremities], [denies balance issues] Objective:: Physical exam General: Alert and oriented x3, no acute distress, pleasant and cooperative, [on room air] Lungs: Respirations even and unlabored, symmetrical chest expansion Eyes: PERRL Musculoskeletal: Flexion and extension of lumbar spine somewhat guarded secondary to pain, deep tendon reflexes normal, strength in upper and lower extremities [5/5], slightly antalgic gait noted Neurological: Speech clear, packaging clerk equal, no gross sensory deficit Assessment:: Degenerative disc disease lumbar spine with lumbar radiculopathy Plan:: Patient I discussed that I would not be providing gabapentin 800 mg up to 4 times daily. She now did discuss a dosing of gabapentin 400 mg up to 5 times daily. Patient is in agreement with the dose. The patient has agreed to follow-up in the clinic in 2 weeks to see if she is gotten any relief. The patient understands that she cannot refill her gabapentin from other providers if she wishes to continue receiving the medication from us. She is in agreement. Patient is continuing with anti-inflammatories and a home stretching program she has been instructed to contact the clinic if she has any concerns before her next appointment. [facility] History Medical History: Reports:: Cancer, Migraine Denies:: Diabetes Mellitus Type 1, Diabetes Mellitus Type 2, MRSA, Seizures *Have you ever received a pneumonia vaccine?: No *Have you received a flu vaccine this season?: No Other Medical History: Reports: Anemia, Arthritis, Chemotherapy Other Surgeries: Yes: No Previous Surgery, Cholecystectomy, , Hysterectomy-Total Amputation: No Fractures: No - *Social History Smoking Status: Current every day smoker Tobacco Type: cigarettes # Packs/Day (cigarettes): 1 Alcohol Intake: never Alcohol Intake Frequency:: other *Occupational Status
== END ==
PROVIDERS: PCP Nurse Practitioner; Visit Provider Clinical Nurse Specialist Family Health
DX: M51.16 Intervertebral disc disorders with radiculopathy, lumbar region (principal)
CPT/HCPCS: 99212

== ENCOUNTER → 2019-09-01 14:32 | Outpatient (POV) | payer OTHER, SELFPAY ==
[2019-09-01 14:50] VITALS: BP 138/92; PULSE 84; RESP 18; O2SAT 98; BMI 24.4
--- NOTE | 2019-09-02 08:23 | P.CONS_ITS ---
[facility] Pain Management SOAP Note Subjective:: Patient is a pleasant 53-year-old white female who presents today for follow-up. Patient overall doing well in her lower back and hips at this time however she is complaining of myofascial pain in her neck area. We discussed trigger point injection she is interested in this. She rates her pain a 5 out of 10 at her last visit she was changed to gabapentin 400 mg 2 tabs in the morning 1 in the afternoon 2 tabs in the evening she is done well with this. She denies side effects. She does not need any refills at this time. ROS General: no recent weight change, no fever, no sleep disturbances Respiratory: no cough, no shortness of air, no recurring pulmonary infections Cardiovascular/Peripheral Vascular: No chest pain, No palpitations, no edema, no shortness of breath. Gastrointestinal: no incontinence, normal bowel movements reported Genitourinary: no incontinence Musculoskeletal: Myofascial pain Psychiatric: normal mood/ affect Neurological: [denies weakness in extremities], [denies balance issues] Objective:: Physical Exam General: Alert and oriented x3, no acute distress, pleasant and cooperative, [on room air] Lungs: Resps E/U, Symmetrical chest expansion, Eyes: PERRL Musculoskeletal: Flexion and extension of apical spine somewhat guarded secondary to pain, deep tendon reflexes normal, strength in upper and lower extremities [5/5], antalgic gait noted, palpable trigger points cervical paraspinous bilateral trapezius Neurological: speech clear, stopboard assembler equal, no gross sensory deficits Assessment:: Degenerative disc disease lumbar spine with lumbar radiculopathy myofascial pain syndrome Plan:: We will set the patient up for trigger point to the bilateral cervical paraspinous and trapezius muscles. I will follow-up with patient after her injection reassess her symptoms at that time she is been instructed to call the office if she has any issues prior to her next appointment. Dr. Vela has reviewed this note and agrees with this plan of care. This note was dictated using voice recognition software and may contain errors or omissions [facility] History I have reviewed the patient's past medical history: Yes Medical History: Reports:: Cancer, Migraine Denies:: Diabetes Mellitus Type 1, Diabetes Mellitus Type 2, MRSA, Seizures *Have you ever received a pneumonia vaccine?: No *Have you received a flu vaccine this season?: No Other Medical History: Reports: Anemia, Arthritis, Chemotherapy Other Surgeries: Yes: No Previous Surgery, Cholecystectomy, , Hysterectomy-Total Amputation: No Fractures: No - *Social History Smoking Status: Current every day smoker Tobacco Type: cigarettes # Packs/Day (cigarettes): 1 Alcohol Intake: never Alcohol Intake Frequency:: other *Occupational Status:: other Housing: house Household Members: spouse, children *Travel in the last 8 weeks: None Family Hx:: Diabetes, Hyperlipidemia, Hypertension
== END ==
PROVIDERS: PCP Nurse Practitioner; Visit Provider Clinical Nurse Specialist Family Health
DX: M51.16 Intervertebral disc disorders with radiculopathy, lumbar region (principal); M79.18 Myalgia, other site
CPT/HCPCS: 99212

== ENCOUNTER → 2019-10-06 12:02 | Outpatient (CLI) | payer OTHER, SELFPAY ==
--- NOTE | 2019-10-06 12:07 | XR_ITS ---
PROCEDURE: XR KNEE LT 4V CLINICAL INDICATION: LT KNEE PAIN Fall with injury and pain COMPARISON: No exams were available for comparison FINDINGS: No fracture or dislocation. No lytic or blastic change. There is normal mineralization. The joint spaces are well-preserved. No significant degenerative/arthritic changes. No erosive changes evident. Other findings:None. IMPRESSION: No acute findings. Dictated by: Nacho Bennett MD 10/06/2019 13:39 Electronically signed by Nacho Bennett MD in [place] 10/06/2019 13:39
== END ==
PROVIDERS: PCP Nurse Practitioner; Visit Provider Orthopaedic Surgery Adult Reconstructive Orthopaedic Surgery
DX: M25.562 Pain in left knee (principal)
CPT/HCPCS: 73564

== ENCOUNTER → 2019-10-27 12:54 | Outpatient (POV) | payer OTHER, SELFPAY ==
[2019-10-27 13:00] VITALS: BP 115/75; PULSE 73; RESP 18; O2SAT 99; BMI 30.9
--- NOTE | 2019-10-27 13:15 | HMH.PAINSOAP ---
[facility] Pain Management SOAP Note Subjective:: Patient is a pleasant 54-year-old white female who presents today for follow-up. Patient overall doing well. Patient DC'd her diclofenac and Dr. SEARS he started her on Celebrex she states is been doing really well for her. Patient comes in today with a complaint of right SI joint pain. Patient has a positive Martha test Maulik's test and SI joint compression test on the right side. She is had injections in the past with good relief. We will set her up for 1. ROS General: no recent weight change, no fever, no sleep disturbances Respiratory: no cough, no shortness of air, no recurring pulmonary infections Cardiovascular/Peripheral Vascular: No chest pain, No palpitations, no edema, no shortness of breath. Gastrointestinal: no new onset incontinence, normal bowel movements reported Genitourinary: no new onset incontinence Musculoskeletal: SI joint pain Psychiatric: normal mood/ affect Neurological: [denies new onset weakness in extremities], [denies new onset balance issues] Objective:: Physical Exam General: Alert and oriented x3, no acute distress, pleasant and cooperative, [on room air] Lungs: Resps E/U, Symmetrical chest expansion, Eyes: PERRL Musculoskeletal: Flexion and extension of lumbar spine somewhat guarded secondary to pain, deep tendon reflexes normal, strength in upper and lower extremities [5/5], slightly antalgic gait noted Neurological: speech clear, operations technician equal, no gross sensory deficits Assessment:: Sacroiliitis Plan:: We will move forward with a right SI joint injection. If this is beneficial we may look into an ablation of that area. I will follow-up with the patient after her injection reassess her symptoms at that time she is been instructed to call the office if she has any issues prior to her next appointment. Dr. Vela has reviewed this note and agrees with this plan of care. This note was dictated using voice recognition software and may contain errors or omissions [facility] History I have reviewed the patient's past medical history: Yes Medical History: Reports:: Cancer, Migraine Denies:: Diabetes Mellitus Type 1, Diabetes Mellitus Type 2, MRSA, Seizures *Have you ever received a pneumonia vaccine?: Yes *Have you received a flu vaccine this season?: Yes Other Medical History: Reports: Anemia, Arthritis, Chemotherapy Other Surgeries: Yes: No Previous Surgery, Cholecystectomy, , Hysterectomy-Total Amputation: No Fractures: No - *Social History Smoking Status: Current every day smoker Tobacco Type: cigarettes # Packs/Day (cigarettes): 1 Alcohol Intake: never Alcohol Intake Frequency:: other *Occupational Status:: other Housing: house Household Members: spouse, children *Travel in the last 8 weeks: None Family Hx:: Diabetes, Hyperlipidemia, Hypertension
--- NOTE | 2019-10-27 13:18 | P.CONS_ITS ---
[facility] Pain Management SOAP Note Subjective:: Patient is a pleasant 54-year-old white female who presents today for follow-up. Patient overall doing well. Patient DC'd her diclofenac and Dr. SEARS he started her on Celebrex she states is been doing really well for her. Patient comes in today with a complaint of right SI joint pain. Patient has a positive Martha test Maulik's test and SI joint compression test on the right side. She is had injections in the past with good relief. We will set her up for 1. ROS General: no recent weight change, no fever, no sleep disturbances Respiratory: no cough, no shortness of air, no recurring pulmonary infections Cardiovascular/Peripheral Vascular: No chest pain, No palpitations, no edema, no shortness of breath. Gastrointestinal: no new onset incontinence, normal bowel movements reported Genitourinary: no new onset incontinence Musculoskeletal: SI joint pain Psychiatric: normal mood/ affect Neurological: [denies new onset weakness in extremities], [denies new onset balance issues] Objective:: Physical Exam General: Alert and oriented x3, no acute distress, pleasant and cooperative, [on room air] Lungs: Resps E/U, Symmetrical chest expansion, Eyes: PERRL Musculoskeletal: Flexion and extension of lumbar spine somewhat guarded secondary to pain, deep tendon reflexes normal, strength in upper and lower extremities [5/5], slightly antalgic gait noted Neurological: speech clear, rubber tubing backer equal, no gross sensory deficits Assessment:: Sacroiliitis Plan:: We will move forward with a right SI joint injection. If this is beneficial we may look into an ablation of that area. I will follow-up with the patient after her injection reassess her symptoms at that time she is been instructed to call the office if she has any issues prior to her next appointment. Dr. Vela has reviewed this note and agrees with this plan of care. This note was dictated using voice recognition software and may contain errors or omissions [facility] History I have reviewed the patient's past medical history: Yes Medical History: Reports:: Cancer, Migraine Denies:: Diabetes Mellitus Type 1, Diabetes Mellitus Type 2, MRSA, Seizures *Have you ever received a pneumonia vaccine?: Yes *Have you received a flu vaccine this season?: Yes Other Medical History: Reports: Anemia, Arthritis, Chemotherapy Other Surgeries: Yes: No Previous Surgery, Cholecystectomy, , Hysterectomy-Total Amputation: No Fractures: No - *Social History Smoking Status: Current every day smoker Tobacco Type: cigarettes # Packs/Day (cigarettes): 1 Alcohol Intake: never Alcohol Intake Frequency:: other *Occupational Status:: other Housing: house Household Members: spouse, children *Travel in the last 8 weeks: None Family Hx:: Diabetes, Hyperlipidemia, Hypertension
== END ==
PROVIDERS: PCP Nurse Practitioner; Visit Provider Clinical Nurse Specialist Family Health
DX: M46.1 Sacroiliitis, not elsewhere classified (principal)
CPT/HCPCS: 99212

== ENCOUNTER → 2019-11-11 14:57 | Outpatient (POV) | payer OTHER, SELFPAY | PROVIDERS: Visit Provider Dermatology | DX: Z00.00 Encounter for general adult medical examination without abnormal findings (principal) ==

== ENCOUNTER → 2019-11-12 13:14 | Outpatient (POV) | payer OTHER, SELFPAY | DX: Z00.00 Encounter for general adult medical examination without abnormal findings (principal) ==

== ENCOUNTER → 2019-11-17 14:13 | Outpatient (POV) | payer OTHER, SELFPAY ==
[2019-11-17 14:44] VITALS: BP 133/81; PULSE 99; RESP 18; O2SAT 98; BMI 24.4
--- NOTE | 2019-11-19 12:33 | P.CONS_ITS ---
[facility] Pain Management SOAP Note Subjective:: Patient is a 54-year-old white female who presents today for follow-up. Patient had an SI joint injection which she states was not beneficial. She rates her pain a 10 out of 10 she states is in her lower back and does not radiate. Patient does have a positive Kemps test. Patient has had multiple SI joint injections along with epidural injections and she has not gotten much relief from it. We discussed potential medial branch block she is interested in pursuing this. She may be a neurotomy candidate. It is all on the right side she has no pain on the left side at this time. She is also on gabapentin and would like to discuss an increase in her dosage She denies side effects to her medication. ROS General: no recent weight change, no fever, no sleep disturbances Respiratory: no cough, no shortness of air, no recurring pulmonary infections Cardiovascular/Peripheral Vascular: No chest pain, No palpitations, no edema, no shortness of breath. Gastrointestinal: no new onset incontinence, normal bowel movements reported Genitourinary: no new onset incontinence Musculoskeletal: Low back pain Psychiatric: normal mood/ affect, [denies depression], [denies anxiety] Neurological: [denies new onset weakness in extremities], [denies new onset balance issues] Objective:: physical Exam General: Alert and oriented x3, no acute distress, pleasant and cooperative, [on room air] Lungs: Resps E/U, Symmetrical chest expansion, Eyes: PERRL Musculoskeletal: Flexion and extension of lumbar spine somewhat guarded secondary to pain, deep tendon reflexes normal, strength in upper and lower extremities [5/5], [abnormal gait noted] Neurological: speech clear, pets salesperson equal, no gross sensory deficits Assessment:: Degenerative disc disease lumbar spine with lumbar facet arthropathy, sacroiliitis Plan:: We will plan on a right sided to level medial branch block at L4-L5 L5-S1. Patient's not on any anticoagulation therapy. She is continuing a home stretching program and is on anti-inflammatories. I will follow-up with her after this reassess her symptoms at that time. I gave her information in regards to this. We also discussed the diagnostic nature of this block. We will also increase her gabapentin to 400 mg 2 tabs p.o. [address] Vela has reviewed this note and agrees with this plan of care. This note was dictated using voice recognition software and may contain errors or omissions [facility] History I have reviewed the patient's past medical history: Yes Medical History: Reports:: Cancer, Migraine Denies:: Diabetes Mellitus Type 1, Diabetes Mellitus Type 2, MRSA, Seizures *Have you ever received a pneumonia vaccine?: Yes *Have you received a flu vaccine this season?: Yes Other Medical History: Reports: Anemia, Arthritis, Chemotherapy Other Surgeries: Yes: No Previous Surgery, Cholecystectomy, , Hysterectomy-Total Amputation: No Fractures: No - *Social History Smoking Status: Current every day smoker Tobacco Type: cigarettes # Packs/Day (cigarettes): 1 Alcohol Intake: never Alcohol Intake Frequency:: other *Occupational Status:: other Housing: house Household Members: spouse, children *Travel in the last 8 weeks: None Family Hx:: Diabetes, Hyperlipidemia, Hypertension
== END ==
PROVIDERS: PCP Nurse Practitioner; Visit Provider Clinical Nurse Specialist Family Health
DX: M51.36 Other intervertebral disc degeneration, lumbar region (principal); M46.1 Sacroiliitis, not elsewhere classified; M47.816 Spondylosis without myelopathy or radiculopathy, lumbar region
CPT/HCPCS: 99212

== ENCOUNTER → 2019-12-25 09:18 | Outpatient (POV) | payer OTHER, SELFPAY ==
[2019-12-25 09:41] VITALS: BP 115/76; PULSE 99; RESP 18; O2SAT 98; BMI 23.9
--- NOTE | 2019-12-25 09:51 | P.CONS_ITS ---
[facility] Pain Management SOAP Note Subjective:: Pleasant 54-year-old white female who presents today for follow-up. She is being treated for pain secondary to degenerative disc disease lumbar spine with lumbar spondylosis and facet arthropathy of lumbar spine. She recently underwent a right-sided medial branch block of L4-L5 and L5-S1. Patient says that she got approximately 85% relief following the injection. She says she got approximately 2 weeks of relief. She says her pain has slowly returned. Her pain is a 6 out of 10 today. Patient says her pain is worse with twisting and extension at the waist. She says it also hurts when she leans forward. She would like to proceed with another medial branch block/facet joint injections. She continues with anti-inflammatories and a home stretching program from exercises learned from physical therapy. Review of Systems General: No recent weight changes, no fever, no sleep disturbances Respiratory: No cough, no shortness of air, no recurring pulmonary infections Cardiovascular/peripheral vascular: No chest pain, no palpitations, no edema, no shortness of breath Gastrointestinal: No new onset incontinence, normal bowel movements reported Genitourinary: No new onset incontinence Musculoskeletal: Low back pain Psychiatric: Normal mood/affect Neurological: [Denies weakness in extremities], [denies balance issues] Objective:: Physical exam General: Alert and oriented x3, no acute distress, pleasant and cooperative, [on room air] Lungs: Respirations even and unlabored, symmetrical chest expansion Eyes: PERRL Musculoskeletal: Flexion and extension of lumbar spine somewhat guarded secondary to pain, deep tendon reflexes normal, strength in upper and lower extremities [5/5], [abnormal gait noted] Neurological: Speech clear, aircraft parts assembler equal, no gross sensory deficit Assessment:: Degenerative disc disease lumbar spine with lumbar spondylosis and facet arthropathy lumbar spine Plan:: Overall, the patient is doing well following her medial branch block/facet joint injection. She would like to proceed with another medial branch block to see if she gets longer relief. We will schedule her for the injection at L4-L5 and L5- S1 on the right side. She says her pain is only on the right side. She will also continue with anti-inflammatories and stretching program. The patient is not on any anticoagulation therapy. We will see her back in the clinic following her injection to reassess her symptoms. She has been instructed to contact the clinic if she has any concerns before next appointment. Dr. Vela has reviewed this note and agrees with this plan of care. This note was dictated using voice recognition software and make contain errors or omissions. [facility] History I have reviewed the patient's past medical history: Yes Medical History: Reports:: Cancer, Migraine Denies:: Diabetes Mellitus Type 1, Diabetes Mellitus Type 2, MRSA, Seizures *Have you ever received a pneumonia vaccine?: Yes *Have you received a flu vaccine this season?: Yes Other Medical History: Reports: Anemia, Arthritis, Chemotherapy Other Surgeries: Yes: No Previous Surgery, Cholecystectomy, , Hysterectomy-Total Amputation: No Fractures: No - *Social History Smoking Status: Current every day smoker Tobacco Type: cigarettes # Packs/Day (cigarettes): 1 Alcohol Intake: never Alcohol Intake Frequency:: other *Occupational Status:: other Housing: house Household Members: spouse, children *Travel in the last 8 weeks: None Family Hx:: Diabetes, Hyperlipidemia, Hypertension
== END ==
PROVIDERS: PCP Nurse Practitioner; Visit Provider Clinical Nurse Specialist Family Health
DX: M51.36 Other intervertebral disc degeneration, lumbar region (principal); M47.816 Spondylosis without myelopathy or radiculopathy, lumbar region; M54.06 Panniculitis affecting regions of neck and back, lumbar region; Z79.1 Long term (current) use of non-steroidal anti-inflammatories (NSAID); Z72.0 Tobacco use
CPT/HCPCS: 99212

== ENCOUNTER → 2020-02-09 14:01 | Outpatient (POV) | payer OTHER, SELFPAY ==
[2020-02-09 15:37] VITALS: BP 122/80; PULSE 85; RESP 18; O2SAT 99; BMI 23.7
--- NOTE | 2020-02-10 08:38 | HMH.PAINSOAP ---
[facility] Pain Management SOAP Note Subjective:: Patient is a pleasant 54-year-old white female who presents today for follow-up after her second medial branch block at the L4-L5 L5-S1 levels on the right side. Patient has done extremely well with this she got 80% relief for with her pain for over a week. She rates her pain today a 9 out of 10 and would like to move forward with an RFA. She is not on any anticoagulation therapy. She is continuing a home stretching program. She is tried and failed other conservative measures. She is on gabapentin 400 mg 1 p.o. 4 times daily she would like to double this due to the mandatory decrease on elective procedures it may be some time prior to her being able to have this RFA. [facility] #[id number] reviewed and appropriate.. ROS General: no recent weight change, no fever, no sleep disturbances Respiratory: no cough, no shortness of air, no recurring pulmonary infections Cardiovascular/Peripheral Vascular: No chest pain, No palpitations, no edema, no shortness of breath. Gastrointestinal: no new onset incontinence, normal bowel movements reported Genitourinary: no new onset incontinence Musculoskeletal: Back pain, leg pain at times Psychiatric: normal mood/ affect Neurological: [denies new onset weakness in extremities], [denies new onset balance issues] Objective:: Physical Exam General: Alert and oriented x3, no acute distress, pleasant and cooperative, [on room air] Lungs: Resps E/U, Symmetrical chest expansion, Eyes: PERRL Musculoskeletal: Flexion and extension of lumbar spine somewhat guarded secondary to pain, deep tendon reflexes normal, strength in upper and lower extremities [5/5], slightly antalgic gait noted, positive Kemps test on the right side positive facet loading lumbar spine right side Neurological: speech clear, land surveying survey worker equal, no gross sensory deficits Assessment:: Degenerative disc disease lumbar spine with facet arthropathy lumbar spine Plan:: We will schedule the patient for L4-L5 L5-S1 right-sided RFA. Patient will be scheduled when procedures are continued. Patient will increase her gabapentin to to 400 mg capsules 4 times a day. Patient has been instructed to call the office if she has any issues prior to her next appointment. Dr. Vela has reviewed this note and agrees with this plan of care. This note was dictated using voice recognition software and may contain errors or omissions [facility] History I have reviewed the patient's past medical history: Yes Medical History: Reports:: Cancer, Migraine Denies:: Diabetes Mellitus Type 1, Diabetes Mellitus Type 2, MRSA, Seizures *Have you ever received a pneumonia vaccine?: Yes *Have you received a flu vaccine this season?: Yes Other Medical History: Reports: Anemia, Arthritis, Chemotherapy Other Surgeries: Yes: No Previous Surgery, Cholecystectomy, , Hysterectomy-Total Amputation: No Fractures: No - *Social History Smoking Status: Current every day smoker Tobacco Type: cigarettes # Packs/Day (cigarettes): 1 Alcohol Intake: never Alcohol Intake Frequency:: other *Occupational Status:: other Housing: house Household Members: spouse, children *Travel in the last 8 weeks: None Family Hx:: Diabetes, Hyperlipidemia, Hypertension
== END ==
PROVIDERS: PCP Family Medicine; Visit Provider Clinical Nurse Specialist Family Health
DX: M51.16 Intervertebral disc disorders with radiculopathy, lumbar region (principal); M54.06 Panniculitis affecting regions of neck and back, lumbar region
CPT/HCPCS: 99212

== ENCOUNTER 2020-03-05 10:37 | Day surgery (SDC) | payer OTHER, SELFPAY ==
[2020-03-05 11:03] VITALS: BP 128/81; PULSE 82; RESP 18; TEMP 36.8; O2SAT 98; BMI 23.9
[2020-03-05 11:23] VITALS: BP 108/88; PULSE 92; RESP 18
[2020-03-05 11:24] VITALS: BP 110/87; PULSE 95; RESP 18; O2SAT 99
--- NOTE | 2020-03-05 11:36 | P.PCN_ITS ---
- Procedure Date: 03/05/20 Time: 11:36 Anesthesiologist:: Kody Vela MD Complications:: None Pre-procedure Diagnosis:: Degenerative disc disease of lumbar spine with lumbar spondylosis and facet arthropathy of lumbar spine Post-procedure Diagnosis:: Same Indications for Procedure:: This patient is a pleasant 54-year-old white female who we have been treating for low back pain with lumbar spondylosis and facet arthropathy of the L4-5 and L5-S1 1 facet joints on the right side. She did very well with her medial branch blocks. Her pain is gotten severe over the last few weeks so we will get her in for RFA of the L4-5 and L5-S1 facet joints on the right side. This pain is affecting activities of daily living. It is also affecting her functionality. We will do this injection today to keep her out of the emergency room and off oral opioids Procedure Details:: Lumbar RFA informed consent was obtained and the risk and benefits of the procedure was explained to the patient. Patient was placed prone on the procedure table. The patient was prepped and draped in sterile fashion. C-arm fluoroscopy was used to view the lumbar spine. The skin and subcutaneous tissues were anesthetized using lidocaine. I placed 20-gauge RF needles into the facet joints of L4-5 and L5-S1 levels on the right side. We underwent sensory stimulation. There is go od sensory stimulation at 0.8 V. We underwent motor stimulation. There is no motor stimulation at 2 V. We then anesthetized these levels with lidocaine and Depo-Medrol. I used a total of 40 mg Depo-Medrol for both levels. I then burned both levels of L4-L5 and L5-S1 facet joint/medial branches on the right side, each 1 for 4 minutes at 80?C. Patient tolerated the procedure well with no complication. Plan and Disposition:: We will follow-up with her in 2 weeks. Will reevaluate symptoms at that time.
[2020-03-05 11:45] VITALS: BP 123/82; PULSE 79; RESP 18; O2SAT 98
== END 2020-03-05 11:45 | disposition home or self-care (01) ==
LOC: SC.PAINP 10:38
PROVIDERS: PCP Family Medicine; Visit Provider Anesthesiology
DX: M51.36 Other intervertebral disc degeneration, lumbar region (principal); M47.816 Spondylosis without myelopathy or radiculopathy, lumbar region; M54.06 Panniculitis affecting regions of neck and back, lumbar region; F41.9 Anxiety disorder, unspecified; F32.9 Major depressive disorder, single episode, unspecified; Z79.899 Other long term (current) drug therapy
CPT/HCPCS: 64635; 64636; J1040

== ENCOUNTER → 2020-03-22 13:14 | Outpatient (POV) | payer OTHER, SELFPAY ==
[2020-03-22 13:31] VITALS: BP 114/75; PULSE 111; RESP 18; TEMP 36.6; O2SAT 97; BMI 24.5
--- NOTE | 2020-03-22 13:57 | HMH.PAINSOAP ---
[facility] Pain Management SOAP Note Subjective:: Patient is a very pleasant 54-year-old white female who presents today for follow-up after lumbar RFA. Patient's lumbar spine is not giving her any pain today. Her main issue is her thoracic spine. She has a T10 pression fracture. She is had epidurals in the past in this area with good relief. She would like to move forward with 1 of these. Patient is not on any anticoagulation therapy. She rates her pain a 5 out of 10 today. ROS General: no recent weight change, no fever, no sleep disturbances Respiratory: no cough, no shortness of air, no recurring pulmonary infections Cardiovascular/Peripheral Vascular: No chest pain, No palpitations, no edema, no shortness of breath. Gastrointestinal: no new onset incontinence, normal bowel movements reported Genitourinary: no new onset incontinence Musculoskeletal: Thoracic back pain Psychiatric: normal mood/ affect, Neurological: [denies new onset weakness in extremities], [denies new onset balance issues] Objective:: Physical Exam General: Alert and oriented x3, no acute distress, pleasant and cooperative, [on room air] Lungs: Resps E/U, Symmetrical chest expansion, Eyes: PERRL Musculoskeletal: Flexion and extension of thoracic spine somewhat guarded secondary to pain, deep tendon reflexes normal, strength in upper and lower extremities [5/5], normal gait noted Neurological: speech clear, social science manager equal, no gross sensory deficits Assessment:: Degenerative disc disease lumbar spine and history of compression fracture thoracic spine Plan:: We will schedule her for T9-T10 thoracic epidural steroid injection. I believe given the efficacy of this in the past it would be beneficial. I will follow-up with her after this reassess her symptoms at that time. We specifically discussed risk factors for Covid-19 including age, heart or lung disease, diabetes, immunosuppression and travel. We also discussed that NSAIDs may worsen Covid-19 infection symptoms and that they should not be used to treat Covid-19 symptoms. Patient was also informed that corticosteroids in any form oral or injectable will decrease immune response and may increase risk of Covid-[address] Vela has reviewed this patient's chart and this note and agrees with plan of care. Patient has been instructed to call the office if they have any issues prior to the next appointment. [facility] History I have reviewed the patient's past medical history: Yes Medical History: Reports:: Cancer, Migraine Denies:: Diabetes Mellitus Type 1, Diabetes Mellitus Type 2, MRSA, Seizures *Have you ever received a pneumonia vaccine?: Yes *Have you received a flu vaccine this season?: Yes Other Medical History: Reports: Anemia, Arthritis, Chemotherapy Other Surgeries: Yes: No Previous Surgery, Cholecystectomy, , Hysterectomy-Total Amputation: No Fractures: No - *Social History Smoking Status: Current every day smoker Tobacco Type: cigarettes # Packs/Day (cigarettes): 1 Alcohol Intake: never Alcohol Intake Frequency:: other *Occupational Status:: other Housing: house Household Members: spouse, children *Travel in the last 8 weeks: None Family Hx:: Diabetes, Hyperlipidemia, Hypertension
== END ==
PROVIDERS: PCP Nurse Practitioner; Visit Provider Clinical Nurse Specialist Family Health
DX: M51.34 Other intervertebral disc degeneration, thoracic region (principal); M48.54XD Collapsed vertebra, not elsewhere classified, thoracic region, subsequent encounter for fracture with routine healing
CPT/HCPCS: 99212

== ENCOUNTER → 2020-03-31 08:42 | Outpatient (CLI) | payer MEDICARE, OTHER, SELFPAY ==
[2020-04-01 15:09] LABS: Covid-19 Nasal PCR Sendout Lex NOT DETECTED
== END ==
PROVIDERS: Visit Provider Anesthesiology
DX: Z01.818 Encounter for other preprocedural examination (principal)
CPT/HCPCS: U0003

== ENCOUNTER 2020-04-02 09:18 | Day surgery (SDC) | payer MEDICARE, OTHER, SELFPAY ==
[2020-04-02 09:41] VITALS: BP 129/84; PULSE 75; RESP 18; TEMP 36.7; O2SAT 98; BMI 24.4
[2020-04-02 10:16] VITALS: BP 135/78; PULSE 86; RESP 18; O2SAT 98
[2020-04-02 10:17] VITALS: BP 135/89; PULSE 85; RESP 18; O2SAT 98
[2020-04-02 10:21] VITALS: BP 141/79; PULSE 83; RESP 18; O2SAT 100
--- NOTE | 2020-04-02 10:24 | HMH.PMPROC ---
- Procedure Date: 04/02/20 Time: 10:24 Anesthesiologist:: Kody Vela MD Complications:: None Pre-procedure Diagnosis:: Degenerative disc disease of the thoracic spine with T10 chronic compression fracture Post-procedure Diagnosis:: Same Indications for Procedure:: This patient is a pleasant 54-year-old white female who we are treating for mid back pain. She has a chronic T10 compression fracture. She has done well with epidurals in the past with significant pain relief for several months. We will do a repeat thoracic epidural steroid injection under fluoroscopy today. Procedure Details:: Thoracic epidural Steroid Injection Informed consent was obtained and the risk and benefits of the procedure was explained to the patient. Patient was taken to the procedure room. The back was prepped using ChloraPrep. C-arm fluoroscopy was used to view the thoracic spine. The skin and subcutaneous tissues were anesthetized using lidocaine. I placed a 17-gauge Touhy epidural needle into the T11-T12 interspace. I advanced using [id number] to air and fluoroscopic guidance until the epidural space was reached. Confirmation of needle placement in the epidural space was with dye. After this we injected 2 mL lidocaine 1.5% and Depo-Medrol 80 mg. The patient tolerated the procedure well with no complication. Plan and Disposition:: We will follow-up with her in 2 weeks. Will reevaluate symptoms at that time.
== END 2020-04-02 10:23 | disposition home or self-care (01) ==
LOC: SC.PAINP 09:20
PROVIDERS: PCP Nurse Practitioner; Visit Provider Anesthesiology
DX: M51.34 Other intervertebral disc degeneration, thoracic region (principal); M48.54XD Collapsed vertebra, not elsewhere classified, thoracic region, subsequent encounter for fracture with routine healing; Z72.0 Tobacco use; Z88.0 Allergy status to penicillin; Z88.8 Allergy status to other drugs, medicaments and biological substances
CPT/HCPCS: 62321; J1040; Q9966

== ENCOUNTER → 2020-05-21 13:46 | Outpatient (CLI) | payer MEDICARE, OTHER, SELFPAY ==
--- NOTE | 2020-05-21 13:54 | XR_ITS ---
PROCEDURE: XR HIP RT 2-3V W/PELVIS CLINICAL INDICATION: RT HIP PAIN COMPARISON: HIPCMRT XR hip RT 2-3V w/pelvis from 02/28/2019 FINDINGS: No fracture or dislocation is evident. No significant degenerative change. No lytic or blastic change. Unremarkable soft tissues. Scattered pelvic sutures are present. There are no interval changes. IMPRESSION: No acute findings. Note: If a subtle fracture suspected an MR scan recommended. Dictated by: Ray Maddox 05/21/2020 14:17 Electronically signed by Ray Maddox in [place] 05/21/2020 14:17
== END ==
PROVIDERS: PCP Nurse Practitioner Family; Visit Provider Orthopaedic Surgery Adult Reconstructive Orthopaedic Surgery
DX: M25.551 Pain in right hip (principal)
CPT/HCPCS: 73502

== ENCOUNTER → 2020-06-14 10:05 | Outpatient (CLI) | payer MEDICARE, OTHER, SELFPAY ==
--- NOTE | 2020-06-14 10:07 | CA_ITS ---
APPROVED REPORT EXAM: Comprehensive 2D, Doppler, and color-flow Echocardiogram Patient Escort: Selena Méndez RDCS Ht: 5 ft 3 in Wt: 134lbs BSA: 1.63 BP: 110/68 mmHg Indications: PALPS,CP 2D Dimensions LVOT 1.74 cm (M/F) 1.5-2.5 M-Mode Dimensions RVDd 2.42 cm (0.9-2.6) LVDd 4.39 cm (3.5-5.7) LVDs 3.21 cm (3.5-5.7) IVSd 0.82 cm (0.6-1.1) PWd 0.66 cm (0.6-1.1) EF (Teich) 52.60% FS 26.90% EDV (Teich) 87.20 mL ESV (Teich) 41.30 mL LV Diastology E/A Ratio 0.71 Mitral Valve MV A Velocity 77.00 (40-130 cm/s) Left Ventricle Left atrium is normal size, left ventricle is normal size, there is no concentric left ventricular hypertrophy, visually estimated ejection fraction 55% with no regional wall motion abnormality, diastolic parameters are inconclusive. Right Ventricle Right atrium and right ventricular normal size and contractility. Aortic Valve Aortic valve is grossly normal, there is no aortic stenosis or aortic insufficiency. Mitral Valve Mitral valve is grossly normal, there is mild mitral regurgitation. Tricuspid Valve Tricuspid valve is grossly normal, there is mild tricuspid regurgitation, tricuspid regurgitation jet velocity is inadequate for calculation of the right ventricular systolic pressure. Pulmonic Valve Pulmonic valve is poorly visualized. Great Vessels Aortic root is normal size. Pericardium No significant pericardial effusion noted. Conclusion 1. Normal left ventricular size, preserved left ventricular systolic function, visually estimated ejection fraction 55% with no regional wall motion abnormality, diastolic parameters are within normal range. 2. Mild mitral and tricuspid regurgitation. 3. No significant pericardial effusion noted. Electronically signed by : Berny Gordon, 06/14/2020 23:22:16
== END ==
PROVIDERS: PCP Nurse Practitioner Family; Visit Provider Internal Medicine Cardiovascular Disease
DX: R07.9 Chest pain, unspecified (principal)
CPT/HCPCS: 93306

== ENCOUNTER → 2020-06-28 10:27 | Outpatient (POV) | payer MEDICARE, OTHER, SELFPAY ==
[2020-06-28 10:55] VITALS: BP 132/78; PULSE 72; RESP 18; TEMP 36.7; O2SAT 98; BMI 24.5
--- NOTE | 2020-06-28 11:36 | P.CONS_ITS ---
[facility] Pain Management SOAP Note Subjective:: Patient is a pleasant 54-year-old white female who presents today for follow-up. Patient is having a lot of left SI joint pain today. Patient had a RFA done of her right SI joint which is doing well. Patient would like to discuss a left SI joint injection. She has a positive Martha test SI joint compression test and Surendra's test on the left side. Rates her pain today a 9 out of 10 ROS General: no recent weight change, no fever, no sleep disturbances Respiratory: no cough, no shortness of air, no recurring pulmonary infections Cardiovascular/Peripheral Vascular: No chest pain, No palpitations, no edema, no shortness of breath. Gastrointestinal: no new onset incontinence, normal bowel movements reported Genitourinary: no new onset incontinence Musculoskeletal: SI joint pain Psychiatric: normal mood/ affect Neurological: [denies new onset weakness in extremities], [denies new onset balance issues] Objective:: Physical Exam General: Alert and oriented x3, no acute distress, pleasant and cooperative, [on room air] Lungs: Resps E/U, Symmetrical chest expansion, Eyes: PERRL Musculoskeletal: Flexion and extension of lumbar spine somewhat guarded secondary to pain, deep tendon reflexes normal, strength in upper and lower extremities [5/5], antalgic gait noted Neurological: speech clear, grazing aide equal, no gross sensory deficits Assessment:: Sacroiliitis Plan:: We will plan a left SI joint injection for the patient. We will also give her Flexeril 10 mg 1 p.o. daily for bedtime to help her sleep. Patient's been instructed to call the office if she has any issues prior to next appointment. I will follow-up with her after her injection. Dr. Vela has reviewed this note and agrees with this plan of care. This note was dictated using voice recognition software and may contain errors or omissions [facility] History I have reviewed the patient's past medical history: Yes Medical History: Reports:: Cancer (ovarian), Migraine Denies:: Diabetes Mellitus Type 1, Diabetes Mellitus Type 2, MRSA, Seizures *Have you ever received a pneumonia vaccine?: Yes *Have you received a flu vaccine this season?: Yes Other Medical History: Reports: Anemia, Arthritis, Chemotherapy Other Surgeries: Yes: No Previous Surgery, Cholecystectomy, , Hysterectomy-Total Amputation: No Fractures: No - *Social History Smoking Status: Current every day smoker Tobacco Type: cigarettes # Packs/Day (cigarettes): 1 Alcohol Intake: never Alcohol Intake Frequency:: other *Occupational Status:: other Housing: house Household Members: spouse, children *Travel in the last 8 weeks: None Family Hx:: Diabetes, Hyperlipidemia, Hypertension
== END ==
PROVIDERS: PCP Nurse Practitioner; Visit Provider Clinical Nurse Specialist Family Health
DX: M46.1 Sacroiliitis, not elsewhere classified (principal)
CPT/HCPCS: 99212

== ENCOUNTER → 2020-07-06 13:56 | Outpatient (POV) | payer MEDICARE, OTHER, SELFPAY | PROVIDERS: PCP Nurse Practitioner; Visit Provider Dermatology | DX: Z00.00 Encounter for general adult medical examination without abnormal findings (principal) ==

== ENCOUNTER 2020-07-12 14:44 | Day surgery (SDC) | payer MEDICARE, OTHER, SELFPAY ==
[2020-07-12 14:51] VITALS: BP 104/78; BP 115/75; PULSE 100; PULSE 94; RESP 18; TEMP 36.5; O2SAT 100; BMI 23.6
[2020-07-12 15:03] VITALS: BP 109/75; BP 110/74; PULSE 100; PULSE 108; RESP 18; O2SAT 99
--- NOTE | 2020-07-12 15:05 | HMH.PMPROC ---
- Procedure Date: 07/12/20 Time: 15:05 Anesthesiologist:: Valerie Estes APRN Complications:: None Pre-procedure Diagnosis:: Sacroiliitis Post-procedure Diagnosis:: Same Indications for Procedure:: She is a pleasant 54-year-old white female who presents today for a left SI joint injection. Patient had an RFA done on her right SI joint which is doing well. She has a positive Martha test SI joint compression test and Surendra's test on the left side. She rates her pain today an 8 out of 10. Physical Exam General: Alert and oriented x3, no acute distress, pleasant and cooperative, [on room air] Lungs: Resps E/U, Symmetrical chest expansion, Eyes: PERRL Musculoskeletal: Flexion and extension of lumbar spine somewhat guarded secondary to pain, deep tendon reflexes normal, strength in upper and lower extremities [5/5], [abnormal gait noted] Neurological: speech clear, electrical and instrument engineer equal, no gross sensory deficits Procedure Details:: Informed consent was obtained and the risks and benefits of the procedure were explained to the patient. Patient was taken to the procedure room. Patient was placed prone on the procedure table. The left hip was prepped using ChloraPrep as a cleansing solution. The skin and subcutaneous tissues were anesthetized using lidocaine. Using fluoroscopic guidance I placed a 22-gauge spinal needle into the inferior aspect of the left SI joint. After this I injected 5 mL bupivacaine 0.25% and Depo-Medrol 40 mg into the left SI joint. The patient tolerated the procedure well with no complication. Plan and Disposition:: We will follow-up with the patient in several weeks reassess her symptoms at that time she has been instructed to call the office if she has any issues prior to her next appointment. Dr. Vela has reviewed this note and agrees with this plan of care. This note was dictated using voice recognition software and may contain errors or omissions
== END 2020-07-12 15:16 | disposition home or self-care (01) ==
LOC: SC.PAINP 14:45
PROVIDERS: PCP Nurse Practitioner; Visit Provider Clinical Nurse Specialist Family Health
DX: M46.1 Sacroiliitis, not elsewhere classified (principal); I10 Essential (primary) hypertension; K21.9 Gastro-esophageal reflux disease without esophagitis; F41.9 Anxiety disorder, unspecified; F32.9 Major depressive disorder, single episode, unspecified; Z90.49 Acquired absence of other specified parts of digestive tract; Z90.710 Acquired absence of both cervix and uterus; Z88.6 Allergy status to analgesic agent; Z88.0 Allergy status to penicillin; Z88.8 Allergy status to other drugs, medicaments and biological substances; Z72.0 Tobacco use; Z79.899 Other long term (current) drug therapy
CPT/HCPCS: 27096; G0260; J1040; Q9966

== ENCOUNTER → 2020-07-22 12:43 | Outpatient (POV) | payer MEDICARE, OTHER, SELFPAY ==
[2020-07-22 13:10] VITALS: BP 110/77; PULSE 83; RESP 18; O2SAT 99; BMI 23.0
--- NOTE | 2020-07-22 13:12 | P.CONS_ITS ---
[facility] Pain Management SOAP Note Subjective:: She is a pleasant 54-year-old white female presents today for follow-up after left SI joint injection. Patient states that she did well after her injection. She is having some pain at the injection site. There is no redness noted patient was able to tolerate palpation. Patient has been taken off of her anti- inflammatories due to them not working. Patient states that her pain is between her shoulder blades. Patient is having some radiation of that pain throughout her spine. Patient is interested in a thoracic epidural steroid injection. She is not on any anticoagulation therapy. ROS General: no recent weight change, no fever, no sleep disturbances Respiratory: no cough, no shortness of air, no recurring pulmonary infections Cardiovascular/Peripheral Vascular: No chest pain, No palpitations, no edema, no shortness of breath. Gastrointestinal: no new onset incontinence, normal bowel movements reported Genitourinary: no new onset incontinence Musculoskeletal: Thoracic back pain Psychiatric: normal mood/ affect Neurological: [denies new onset weakness in extremities], [denies new onset balance issues] Objective:: Physical Exam General: Alert and oriented x3, no acute distress, pleasant and cooperative, [on room air] Lungs: Resps E/U, Symmetrical chest expansion, Eyes: PERRL Musculoskeletal: Flexion and extension of thoracic spine somewhat guarded secondary to pain, deep tendon reflexes normal, strength in upper and lower extremities [5/5], normal gait noted Neurological: speech clear, vb developer equal, no gross sensory deficits Assessment:: Degenerative disc disease thoracic spine thoracic radiculopathy, sacroiliitis Plan:: We will help schedule a with T7-T8 thoracic epidural steroid injection. I will follow-up with her after this reassess her symptoms at that time she has been instructed to call the office if she has any issues prior to her next appointment. Dr. Vela has reviewed this note and agrees with this plan of care. This note was dictated using voice recognition software and may contain errors or omissions [facility] History I have reviewed the patient's past medical history: Yes Medical History: Reports:: Hypertension, Migraine Denies:: Cancer, Diabetes Mellitus Type 1, Diabetes Mellitus Type 2, MRSA, Seizures *Have you ever received a pneumonia vaccine?: Yes *Have you received a flu vaccine this season?: Yes Other Medical History: Reports: Anemia, Arthritis, Chemotherapy Other Surgeries: Yes: No Previous Surgery, Cholecystectomy, , Hysterectomy-Total Amputation: No Fractures: No - *Social History Smoking Status: Current every day smoker Tobacco Type: cigarettes # Packs/Day (cigarettes): 1 Alcohol Intake: never Alcohol Intake Frequency:: other *Occupational Status:: other Housing: house Household Members: spouse *Travel in the last 8 weeks: None Family Hx:: Diabetes, Hyperlipidemia, Hypertension
== END ==
PROVIDERS: PCP Nurse Practitioner; Visit Provider Clinical Nurse Specialist Family Health
DX: M51.14 Intervertebral disc disorders with radiculopathy, thoracic region (principal); M46.1 Sacroiliitis, not elsewhere classified
CPT/HCPCS: 99212

== ENCOUNTER 2020-07-30 11:50 | Day surgery (SDC) | payer MEDICARE, OTHER, SELFPAY ==
[2020-07-30 12:16] VITALS: BP 117/76; PULSE 76; RESP 18; TEMP 36.4; O2SAT 100; BMI 22.6
[2020-07-30 12:56] VITALS: BP 132/77; PULSE 79; RESP 18; O2SAT 98
[2020-07-30 13:10] VITALS: BP 124/75; PULSE 85; RESP 20; O2SAT 100
--- NOTE | 2020-07-30 13:41 | P.PCN_ITS ---
- Procedure Date: 07/30/20 Time: 13:41 Anesthesiologist:: Kody Vela MD Complications:: None Pre-procedure Diagnosis:: Degenerative disc disease of thoracic spine with thoracic radiculopathy symptoms Post-procedure Diagnosis:: Same Indications for Procedure:: This patient is a pleasant 54-year-old white female who we are treating for mid back pain with thoracic radiculopathy symptoms. She did very well after her left SI joint injection. Most of her pain now is in the mid back radiating to her shoulder blades. We will do a thoracic epidural steroid injection at T6-T7 today to help her with her pain symptoms. Procedure Details:: Thoracic epidural steroid injection under fluoroscopy Informed consent was obtained and the risk and benefits of the procedure was explained to the patient. Patient was taken to the procedure room. The back was prepped using ChloraPrep. C-arm fluoroscopy was used to view the thoracic spine. The skin and subcutaneous tissues were anesthetized using lidocaine. I placed a 17-gauge Touhy epidural needle into the 67 interspace. I advanced using [id number] to air and fluoroscopic guidance until the epidural s pace was reached. Confirmation of needle placement in the epidural space was with dye. After this we injected 1 mL lidocaine 1.5% and Depo-Medrol 80 mg. The patient tolerated the procedure well with no complication. Plan and Disposition:: We will follow-up with her in 2 weeks. Will reevaluate symptoms at that time.
== END 2020-07-30 13:11 | disposition home or self-care (01) ==
LOC: SC.PAINP 11:51
PROVIDERS: PCP Nurse Practitioner; Visit Provider Anesthesiology
DX: M51.14 Intervertebral disc disorders with radiculopathy, thoracic region (principal); K21.9 Gastro-esophageal reflux disease without esophagitis; G43.909 Migraine, unspecified, not intractable, without status migrainosus; Z88.6 Allergy status to analgesic agent; Z88.0 Allergy status to penicillin; Z88.8 Allergy status to other drugs, medicaments and biological substances; Z72.0 Tobacco use; Z90.49 Acquired absence of other specified parts of digestive tract; Z90.710 Acquired absence of both cervix and uterus; Z86.79 Personal history of other diseases of the circulatory system; Z79.899 Other long term (current) drug therapy
CPT/HCPCS: 62321; J1040; Q9966

== ENCOUNTER → 2020-08-05 12:33 | Outpatient (POV) | payer MEDICARE, OTHER, SELFPAY ==
--- NOTE | 2020-08-05 12:57 | HMH.PAINSOAP ---
[facility] Pain Management SOAP Note Subjective:: Patient is a pleasant 54-year-old white female who presents today for follow-up after a thoracic epidural steroid injection. She has been treated for chronic mid to low back pain. She says that she got up to 80% relief with her injection to her mid back, however, she is now having pain in her right hip. Patient says that she has had injective therapy in her trochanteric bursa with her orthopedist in the past, however, she did not get much relief. She says the pain is not radiating outside of her right hip area. She does rate her pain a 5 out of 10 today. The pain is worse with walking. She would like to undergo a intra-articular hip injection to see if this gives her longer relief. She has tried physical therapy along with a continued home stretching program. She is also tried ice and heat therapies with no relief. Review of Systems General: No recent weight changes, no fever, no sleep disturbances Respiratory: No cough, no shortness of air, no recurring pulmonary infections Cardiovascular/peripheral vascular: No chest pain, no palpitations, no edema, no shortness of breath Gastrointestinal: No new onset incontinence, normal bowel movements reported Genitourinary: No new onset incontinence Musculoskeletal: Right hip pain Psychiatric: Normal mood/affect Neurological: [Denies weakness in extremities], [denies balance issues] Objective:: Physical exam General: Alert and oriented x3, no acute distress, pleasant and cooperative, [on room air] Lungs: Respirations even and unlabored, symmetrical chest expansion Eyes: PERRL Musculoskeletal: Flexion and extension of lumbar spine somewhat guarded secondary to pain, deep tendon reflexes normal, strength in upper and lower extremities [5/5], [abnormal gait noted] Neurological: Speech clear, certified lactation educator equal, no gross sensory deficit Assessment:: Right hip pain Plan:: We will schedule the patient for a right intra-articular hip injection. She has tried right trochanteric bursa injections, however, did not get any relief. We will see her back after her injection to reassess her symptoms. She has directed to contact clinic if she has any concerns before next appointment. The patient and I specifically discussed risk factors for COVID19. These risks include, but are not limited to age greater than 60, heart or lung disease, diabetes, immunosuppression, and travel. We also discussed NSAIDs may worsen COVID19 infection or symptoms. Patient should not use NSAIDs to treat COVID19 signs or symptoms. Patient was also informed that any type of corticosteroid of any form (oral or injection) will decrease the patient's immune system response and may increase the likelihood of COVID19 infection [address] symptoms[address] Vela has reviewed this note and agrees with this plan of care. This note was dictated using voice recognition software and make contain errors or omissions. [facility] History I have reviewed the patient's past medical history: Yes Medical History: Reports:: Hypertension, Migraine, Valvular Heart Disease (leaky) Denies:: Cancer, Diabetes Mellitus Type 1, Diabetes Mellitus Type 2, MRSA, Seizures *Have you ever received a pneumonia vaccine?: No *Have you received a flu vaccine this season?: No Other Medical History: Reports: Anemia, Arthritis, Chemotherapy Other Surgeries: Yes: No Previous Surgery, Cholecystectomy, , Hysterectomy-Total Amputation: No Fractures: No - *Social History Smoking Status: Current every day smoker Tobacco Type: cigarettes # Packs/Day (cigarettes): 1 Alcohol Intake: never Alcohol Intake Frequency:: other *Occupational Status:: employed Housing: house Household Members: spouse *Travel in the last 8 weeks: None Family Hx:: Diabetes, Hyperlipidemia, Hypertension
[2020-08-05 14:13] VITALS: BP 115/81; PULSE 83; RESP 18; TEMP 36.8; O2SAT 98; BMI 22.8
== END ==
PROVIDERS: Visit Provider Clinical Nurse Specialist Family Health
DX: M25.551 Pain in right hip (principal)
CPT/HCPCS: 99212

== ENCOUNTER 2020-08-06 10:26 | Day surgery (SDC) | payer MEDICARE, OTHER, SELFPAY ==
[2020-08-06 11:10] VITALS: BP 124/86; PULSE 82; RESP 18; TEMP 36.4; O2SAT 100; BMI 23.0
[2020-08-06 11:58] VITALS: BP 116/84; PULSE 74; RESP 18; O2SAT 99
[2020-08-06 12:01] VITALS: BP 120/77; PULSE 85; RESP 18; O2SAT 98
--- NOTE | 2020-08-06 12:16 | HMH.PMPROC ---
- Procedure Date: 08/06/20 Time: 12:16 Anesthesiologist:: Kody Vela MD Complications:: None Pre-procedure Diagnosis:: Degenerative osteoarthritis right hip with right hip pain chronic Post-procedure Diagnosis:: Same Indications for Procedure:: This patient is a pleasant 54-year-old white female who we are treating for chronic right hip pain with degenerative osteoarthritis right hip. Her mid back is doing much better she is 80% better after the epidural steroid injection. Now her pain is in the right hip especially while walking. We will do a right hip intra-articular injection today to help her with her pain symptoms. Procedure Details:: Right hip intra-articular injection Informed consent was obtained the risk and benefits of the procedure were explained to the patient. Patient was taken to the procedure room. The right hip was prepped using ChloraPrep. A 22-gauge spinal needle was inserted and advanced into the right hip joint. Needle placement was confirmed with dye. After this we injected 5 mL bupivacaine 0.25% Depo-Medrol 40 mg into the right hip joint. Patient tolerated procedure well with no complications. Plan and Disposition:: Follow-up with her and 2 weeks. Will reevaluate symptoms at that time.
[2020-08-06 12:20] VITALS: BP 120/77; PULSE 85; RESP 20; O2SAT 98
== END 2020-08-06 12:20 ==
LOC: SC.PAINP 10:27
PROVIDERS: PCP Nurse Practitioner; Visit Provider Anesthesiology
DX: M16.11 Unilateral primary osteoarthritis, right hip (principal)
CPT/HCPCS: 20610; 77002; J1040; Q9966

== ENCOUNTER → 2020-08-16 10:28 | Outpatient (CLI) | payer MEDICARE, OTHER, SELFPAY ==
--- NOTE | 2020-08-16 10:33 | CT_ITS ---
PROCEDURE: CT HEAD/BRAIN WO CON CLINICAL INDICATION: PARESTHESIA OF SKIN,LT ARM PAIN,WEAKNESS,HEADACHE left facial numbness, left facial droop, left arm weakness COMPARISON: CT CT HEAD/BRAIN WO CON from 07/15/2019 TECHNIQUE: Axial images obtained. All CT scans at the facility use one or more dose reduction, viz: automated exposure control, ma/kV adjustment per patient size (including targeted exams where dose is matched to indication, i.e. head), or iterative reconstruction technique. FINDINGS: No midline shift, mass effect, intracranial hemorrhage, hydrocephalus, or extra-axial fluid collection is evident. The calvarium has an unremarkable appearance. No mastoid effusion. No sinus air-fluid level. IMPRESSION: No acute intracranial finding Early or small infarction may not be visualized by CT. MRI with diffusion imaging may provide further evaluation if clinically warranted Dictated by: Nacho Bennett MD 08/16/2020 11:45 Nacho Bennett MD in [place] 08/16/2020 11:45
[2020-08-16 12:03] LABS: Basophils % 0.5 % (0.1-2.0); Eosinophils # 0.1 K/mm3 (0.0-0.4); Eosinophils % 1.1 % (0.1-12.0); Hematocrit 45.8 % (37.0-47.0); Hemoglobin 15.3 g/dL (12.2-16.2); Lymphocytes # 2.5 K/mm3 (0.7-4.5); Lymphocytes % 34.1 % (10-50); Mean Corpuscular HGB Conc 33.4 g/dL (31.8-35.4); Mean Corpuscular Hemoglobin 33.8 pg (27.0-31.2); Mean Corpuscular Volume 101.2 fl (81-99); Monocytes # 0.4 K/mm3 (0.1-1.0); Monocytes % 4.9 % (1.7-9.3); Neutrophils # 4.3 K/mm3 (1.8-7.8); Neutrophils % 59.4 % (37.0-80.0); Platelet Count 205 K/mm3 (142-424); Red Blood Count 4.52 M/mm3 (4.20-5.40); Red Cell Distribution Width 13.7 % (11.5-17.5); White Blood Count 7.2 K/mm3 (4.8-10.8)
[2020-08-16 12:17] LABS: D-Dimer 0.37 ug/mL (0.15-8.0)
[2020-08-16 12:28] LABS: Erythrocyte Sedimentation Rate 10 mm/hr (0-30)
[2020-08-16 12:49] LABS: Chloride 102 mmol/L (98-107); Potassium 4.5 mmoL/L (3.5-5.1); Sodium 140 mmol/L (136-145)
[2020-08-16 12:52] LABS: Alanine Aminotransferase 17 U/L (12-78); Albumin Level 4.3 g/dl (3.5-5.0); Albumin/Globulin Ratio 1.6 (1.1-1.8); Alkaline Phosphatase 75 U/L (38-126); Anion Gap 11.5 mEq/L (5-15); Aspartate Amino Transferase 25 U/L (14-36); Bilirubin,Total 0.6 mg/dl (0.2-1.3); Blood Urea Nitrogen 16 mg/dl (7-17); Carbon Dioxide 31 mmol/L (22.0-30.0); Estimated Glomerular Filt Rate 88 ml/min (>60); GFR (African American) 106 ML/MIN (>60); Globulin 2.7 g/dL (1.3-3.2)
[2020-08-16 12:53] LABS: Glucose 87 mg/dl (74-100)
[2020-08-16 12:59] LABS: C-Reactive Protein 2.9 mg/L (0-4)
[2020-08-16 13:23] LABS: Thyroid Stimulating Hormone 1.23 uIU/mL (0.465-4.68)
== END ==
PROVIDERS: PCP Nurse Practitioner Family; Visit Provider Nurse Practitioner Family
DX: R51 Headache (principal); R20.2 Paresthesia of skin; R20.0 Anesthesia of skin; R53.1 Weakness; M79.602 Pain in left arm
CPT/HCPCS: 36415; 70450; 80053; 84443; 85025; 85378; 85651; 86140

== ENCOUNTER → 2020-08-24 13:17 | Outpatient (POV) | payer MEDICARE, OTHER, SELFPAY | PROVIDERS: Visit Provider Dermatology | DX: Z00.00 Encounter for general adult medical examination without abnormal findings (principal) ==

== ENCOUNTER → 2020-08-30 10:26 | Outpatient (POV) | payer MEDICARE, OTHER, SELFPAY ==
[2020-08-30 10:59] VITALS: BP 125/77; PULSE 62; RESP 18; O2SAT 99; BMI 22.6
--- NOTE | 2020-08-30 11:25 | HMH.PAINSOAP ---
[facility] Pain Management SOAP Note Subjective:: Patient is a pleasant 54-year-old white female who presents today for follow-up after right intra-articular hip injection. Patient says that she did not get much relief after the injection. Patient reports that she recently had a mini stroke . Patient says that she was told by her primary care provider that it is likely due to the amount of pain she is having causing her to have her mini strokes . Patient is not interested in any type of implanted device. She says that she does have an orthopedic provider that has informed her that she does not need a hip replacement. Patient's pain is primarily in her right low back and right buttock area with radiation into her right hip. Her pain an 8 out of 10. Review of Systems General: No recent weight changes, no fever, no sleep disturbances Respiratory: No cough, no shortness of air, no recurring pulmonary infections Cardiovascular/peripheral vascular: No chest pain, no palpitations, no edema, no shortness of breath Gastrointestinal: No new onset incontinence, normal bowel movements reported Genitourinary: No new onset incontinence Musculoskeletal: Right low back area, right buttock pain, right leg pain, right hip pain Psychiatric: Normal mood/affect Neurological: [Denies weakness in extremities], [denies balance issues] Objective:: Physical exam General: Alert and oriented x3, no acute distress, pleasant and cooperative, [on room air] Lungs: Respirations even and unlabored, symmetrical chest expansion Eyes: PERRL Musculoskeletal: Flexion and extension of lumbar spine somewhat guarded secondary to pain, deep tendon reflexes normal, strength in upper and lower extremities [5/5], [abnormal gait noted] positive Woburn's test, positive Surendra's test, positive SI compression test Neurological: Speech clear, tractor driver equal, no gross sensory deficit Assessment:: Right sacroiliitis, right trochanteric bursitis Plan:: We will schedule the patient for a right SI joint injection as well as right trochanteric bursa injection. She has tenderness noted over her right SI joint and right trochanteric bursa. We will see her back in the clinic after her injection to reassess her symptoms. She has been instructed to contact clinic if she has any concerns before next appointment. The patient and I specifically discussed risk factors for COVID19. These risks include, but are not limited to age greater than 60, heart or lung disease, diabetes, immunosuppression, and travel. We also discussed NSAIDs may worsen COVID19 infection or symptoms. Patient should not use NSAIDs to treat COVID19 signs or symptoms. Patient was also informed that any type of corticosteroid of any form (oral or injection) will decrease the patient's immune system response and may increase the likelihood of COVID19 infection and symptoms[address] Dr. Vela has reviewed this note and agrees with this plan of care. This note was dictated using voice recognition software and make contain errors or omissions. [facility] History Medical History: Reports:: Hyperlipidemia, Hypertension, Migraine, Valvular Heart Disease (leaky) Denies:: Cancer, Diabetes Mellitus Type 1, Diabetes Mellitus Type 2, MRSA, Seizures *Have you ever received a pneumonia vaccine?: Yes *Have you received a flu vaccine this season?: Yes Other Medical History: Reports: Anemia, Arthritis, Chemotherapy. Denies: Blood Transfusion Reaction Other Surgeries: Yes: No Previous Surgery, Cholecystectomy, , Hysterectomy-Total Amputation: No Fractures: No - *Social History Smoking Status: Current every day smoker Tobacco Type: cigarettes # Packs/Day (cigarettes): 1 Alcohol Intake: never Alcohol Intake Frequency:: other Substance Use Type: denies use *Occupational Status:: other Housing: house Household Members: spouse *Travel in the last 8 weeks: None Family Hx:: Diabetes, Hyperlipidemia, Hypertension
== END ==
PROVIDERS: PCP Nurse Practitioner Family; Visit Provider Clinical Nurse Specialist Family Health
DX: M46.1 Sacroiliitis, not elsewhere classified (principal); M70.61 Trochanteric bursitis, right hip
CPT/HCPCS: 99212

== ENCOUNTER 2020-09-20 14:46 | Day surgery (SDC) | payer MEDICARE, OTHER, SELFPAY ==
[2020-09-20 15:29] VITALS: BP 116/80; PULSE 94; RESP 18; TEMP 36.2; O2SAT 94; BMI 22.6
[2020-09-20 16:25] VITALS: BP 122/77; PULSE 65; RESP 18
[2020-09-20 16:26] VITALS: BP 125/88; PULSE 85; RESP 18; O2SAT 98
--- NOTE | 2020-09-20 16:35 | HMH.PMPROC ---
- Procedure Date: 09/20/20 Time: 16:35 Anesthesiologist:: Valerie Estes APRN Complications:: None Pre-procedure Diagnosis:: Right sacroiliitis and right greater trochanteric bursitis Post-procedure Diagnosis:: Same Indications for Procedure:: Patient is a pleasant 54-year-old white female who presents today for right SI joint injection right greater trochanteric bursa injection. Patient pain is primarily in her right lower back and right buttock area with radiation into her right hip she rates her pain an 8 out of 10 she has a positive Martha sign SI joint compression time Surendra's test and distraction test. She is also extremely tender over the right greater trochanteric bursa Procedure Details:: Informed consent was obtained and the risks and benefits of the procedure were explained to the patient. Patient was taken to the procedure room. Patient was placed prone on the procedure table. The [right] hip was prepped using ChloraPrep as a cleansing solution. The skin and subcutaneous tissues were anesthetized using lidocaine. Using fluoroscopic guidance I placed a 22-gauge spinal needle into the inferior aspect of the [right] SI joint. After this I injected 5 mL bupivacaine 0.25% and Depo-Medrol 40 mg into the [right] SI joint. We then moved onto the bursa injection. Under fluoroscopic guidance the area of maximal tenderness was identified. The skin overlying the right hip region was prepped with ChloraPrep and draped in sterile fashion. Strict aseptic technique was observed throughout the entire procedure. The skin was anesthetized with 1% lidocaine without epinephrine. A 22-gauge spinal needle was passed to the area of the greater trochanteric bursa using fluoroscopic guidance. 1.5 mL's of Omnipaque 300 preservative-free contrast was injected into the joint to confirm location 3 mL's of a solution containing 0.25% bupivacaine and 40 mg of Depo-Medrol were injected into the bursa the patient tolerated this well with no complications. The needle was withdrawn and bandages were placed over the puncture site. On examination after the procedure, 60% pain relief was reported. The patient tolerated the procedure well with no complication. Plan and Disposition:: Follow-up with the patient several weeks reassess her symptoms at that time she has been instructed to call the office if she has any issues prior to her next appointment. Dr. Vela has reviewed this note and agrees with this plan of care. This note was dictated using voice recognition software and may contain errors or omissions
[2020-09-20 16:37] VITALS: BP 138/89; PULSE 91; RESP 20; O2SAT 98
== END 2020-09-20 16:38 | disposition home or self-care (01) ==
LOC: SC.PAINP 14:47
PROVIDERS: PCP Nurse Practitioner Family; Visit Provider Clinical Nurse Specialist Family Health
DX: M46.1 Sacroiliitis, not elsewhere classified (principal); M70.61 Trochanteric bursitis, right hip; Z72.0 Tobacco use; E78.5 Hyperlipidemia, unspecified; K21.9 Gastro-esophageal reflux disease without esophagitis; G43.909 Migraine, unspecified, not intractable, without status migrainosus; Z85.43 Personal history of malignant neoplasm of ovary
CPT/HCPCS: 20610; 27096; 77002; G0260; J1030; Q9966

== ENCOUNTER → 2020-09-22 10:34 | Outpatient (CLI) | payer MEDICARE, OTHER, SELFPAY ==
[2020-09-22 11:31] LABS: Alanine Aminotransferase 18 U/L (12-78); Albumin Level 4.5 g/dl (3.5-5.0); Alkaline Phosphatase 81 U/L (38-126); Anion Gap 14.4 mEq/L (5-15); Aspartate Amino Transferase 22 U/L (14-36); Bilirubin,Total 0.6 mg/dl (0.2-1.3); Blood Urea Nitrogen 13 mg/dl (7-17); Calcium 9.4 mg/dl (8.4-10.2); Carbon Dioxide 27 mmol/L (22.0-30.0); Chloride 102 mmol/L (98-107); Estimated Glomerular Filt Rate 105 ml/min (>60); GFR (African American) 127 ML/MIN (>60); Globulin 2.2 g/dL (1.3-3.2); Glucose 91 mg/dl (74-100); Potassium 4.4 mmoL/L (3.5-5.1); Sodium 139 mmol/L (136-145); Total Protein,Serum 6.7 g/dl (6.3-8.2)
[2020-09-22 11:47] LABS: Basophils % 0.1 % (0.1-2.0); Eosinophils # 0.1 K/mm3 (0.0-0.4); Eosinophils % 0.6 % (0.1-12.0); Hematocrit 43.3 % (37.0-47.0); Hemoglobin 14.9 g/dL (12.2-16.2); Lymphocytes # 2.4 K/mm3 (0.7-4.5); Lymphocytes % 20.9 % (10-50); Mean Corpuscular HGB Conc 34.5 g/dL (31.8-35.4); Mean Corpuscular Hemoglobin 33.6 pg (27.0-31.2); Mean Corpuscular Volume 97.2 fl (81-99); Mean Platelet Volume 8.5 fl (7.4-10.4); Monocytes # 0.5 K/mm3 (0.1-1.0); Monocytes % 3.9 % (1.7-9.3); Neutrophils # 8.5 K/mm3 (1.8-7.8); Neutrophils % 74.4 % (37.0-80.0); Platelet Count 250 K/mm3 (142-424); Red Blood Count 4.45 M/mm3 (4.20-5.40); White Blood Count 11.4 K/mm3 (4.8-10.8)
[2020-09-23 09:10] LABS: Hep A Ab, IgM Negative (Negative); Hepatitis B Core Antibody IgM Negative (Negative); Hepatitis B Surface Antigen Negative (Negative)
[2020-09-23 11:29] LABS: Hepatitis C Antibody <0.1 s/co ratio (0.0-0.9)
[2020-09-25 17:46] LABS: QuantiFERON-TB Gold Plus Negative (Negative)
== END ==
PROVIDERS: Visit Provider Dermatology
DX: L40.0 Psoriasis vulgaris (principal); Z79.899 Other long term (current) drug therapy
CPT/HCPCS: 36415; 80053; 80074; 85025; 86480

== ENCOUNTER 2020-10-09 12:10 | Emergency (ER) | payer MEDICARE, OTHER, SELFPAY ==
[2020-10-09 12:45] VITALS: BP 112/82; PULSE 77; RESP 18; TEMP 36.7; O2SAT 99; BMI 22.6
--- NOTE | 2020-10-09 12:50 | HMH.EDUTC ---
[facility] [place] Disposition Clinical Impression: Headache Qualifiers: Headache type: unspecified Headache chronicity pattern: unspecified pattern Intractability: not intractable Qualified Code(s): R51.9 - Headache, unspecified Disposition: Home, Self-Care Condition on Discharge: Good Instructions: Migraine -- Adult, DI for Headache Additional Instructions: Go home lay down and try to sleep off remainder of headache Continue to take prescribed medication for your headache Return if needed Straight to ER if any life threatening symptoms FOllow up with Family Doctor if no improvement or headache returns or worsens Referrals: Surekha Cotto APRN [Primary Care Provider] - Forms: Work/School Release Time of Disposition: 13:11 Medical Decision Making - Dar Inquiry Pt receiving controlled substance: No Dar was queried for this patient: No Vital Signs: 10/09/20 12:45 Temperature 98.0 F Temperature Source Oral Pulse Rate [Radial] 77 Respiratory Rate 18 Blood Pressure [Right Arm] 112/82 Blood Pressure Mean [Right Arm] 92 Blood Pressure Source [Right Arm] Automatic Cuff Blood Pressure Position [Right Arm] Sitting 02 Sat by Pulse Oximetry 99 Oxygen Delivery Method Room Air Orders (Tests/Meds): ED MEDICATIONS Discontinued Medications Generic Name Dose Route Start Last Admin Trade Name Freq PRN Reason Stop Dose Admin Diphenhydramine HCl 25 mg 10/09/20 13:05 10/09/20 13:11 Diphenhydramine 50mg/Ml Vial IM 10/09/20 13:06 25 mg ONCE ONE Administration Ketorolac Tromethamine 30 mg 10/09/20 13:05 10/09/20 13:12 Ketorolac 60mg/2ml Vial IM 10/09/20 13:06 30 mg ONCE ONE Administration Ondansetron HCl 4 mg 10/09/20 13:06 10/09/20 13:12 Ondansetron 4mg Odt SL 10/09/20 13:07 4 mg ONCE ONE Administration Medical Decision Narrative: Patient state that medication has helped Patient dc'd home and advised to lay down and sleep off remainder of headache [facility] [place] HPI - General Stated complaint: migraine Time Seen by Provider: 10/09/20 12:51 Mode of Arrival: Ambulatory Source of Information: Patient Limitations: No Limitations Description of Symptoms (Recalled from Triage Doc. by RN): migraine HEENT Symptoms (Recalled from RN notes): Yes Resp Symptoms (Recalled from RN notes): No Skin Symptoms (Recalled from RN notes): No MS Symptoms (Recalled from RN notes): No Functional Status (Recalled from RN notes): wnl - History of Present Illness Provider Complaint: Patient states that she has a history of migraine headaches States that she felt one coming on a day or so ago and has been taking her medcation prescribed by her PCP but it hasnt helped so she come in to see if there is something else she can get States that they have been working on her medication to try to get something to help control them States that this one is like headaches she has had in the past - Related Data Home Medications Medication Instructions Recorded Confirmed esomeprazole magnesium 40 mg 40 mg PO DAILY #30 cap 11/06/19 09/20/20 capsule,delayed release rizatriptan 10 mg tablet 10 mg PO Q2H PRN 11/06/19 09/20/20 erenumab-aooe 70 mg/mL 70 mg SQ QMONTH 03/30/20 09/20/20 subcutaneous auto-injector gabapentin 800 mg tablet 400 mg PO QID tab 03/30/20 09/20/20 Miscellaneous [Unknown Home 1 tab PO DAILY 07/12/20 09/20/20 Medication] Previous Rx's Medication Instructions Recorded Cyclobenzaprine HCl [Flexeril 10mg 10 mg PO HS PRN #30 tab 06/28/20 tablet] Allergies Allergy/AdvReac Type Severity Reaction Status Date / Time codeine Allergy Severe S-DIFF. Verified 09/20/20 15:40 BREATHING Penicillins Allergy Intermediate I-HIVES Verified 09/20/20 15:40 amitriptyline Allergy Unknown Verified 09/20/20 15:40 - Worker's Comp Is this a Worker's Comp case?: No [facility] History - Hepatitis A Screen Drug use history?: No High risk sexual behaviors?: No History of sexually transmitted infect
[2020-10-09 13:31] VITALS: BP 112/82; PULSE 77; RESP 18; TEMP 36.7; O2SAT 99
== END 2020-10-09 13:34 | disposition home or self-care (01) ==
PROVIDERS: Emergency Provider Nurse Practitioner; PCP Nurse Practitioner Family
DX: G43.109 Migraine with aura, not intractable, without status migrainosus (principal); I10 Essential (primary) hypertension; E78.5 Hyperlipidemia, unspecified; F17.210 Nicotine dependence, cigarettes, uncomplicated; Z90.49 Acquired absence of other specified parts of digestive tract; Z90.710 Acquired absence of both cervix and uterus
CPT/HCPCS: 96372; 99201

== ENCOUNTER → 2020-10-11 09:52 | Outpatient (POV) | payer MEDICARE, OTHER, SELFPAY ==
[2020-10-11 10:53] VITALS: BP 118/71; PULSE 72; RESP 18; TEMP 36.8; O2SAT 98; BMI 22.6
--- NOTE | 2020-10-11 12:52 | HMH.PAINSOAP ---
[facility] Pain Management SOAP Note Subjective:: Pleasant 54-year-old white female who presents today for follow-up. Patient is in significant pain today rating her pain a 10 out of 10. She is also quite depressed because of her pain. Patient is trying to work however she is unable to do so at this time. Patient has had multiple injections including epidurals, facets, radiofrequency ablations, SI joint injections. Patient is got no long-term relief. She is also done physical therapy with no long-term relief she has been on medication for over 6 months with no long-term relief. We discussed intrathecal pain pump who would like to move forward with this. We also discussed therapy to help with her depression. She is agreeable. ROS General: no recent weight change, no fever, no sleep disturbances Respiratory: no cough, no shortness of air, no recurring pulmonary infections Cardiovascular/Peripheral Vascular: No chest pain, No palpitations, no edema, no shortness of breath. Gastrointestinal: no new onset incontinence, normal bowel movements reported Genitourinary: no new onset incontinence Musculoskeletal: Back pain, leg pain Psychiatric: depressed Neurological: [denies new onset weakness in extremities], [denies new onset balance issues] Objective:: Physical Exam General: Alert and oriented x3, no acute distress, pleasant and cooperative, [on room air] Lungs: Resps E/U, Symmetrical chest expansion Eyes: PERRL Musculoskeletal: Flexion and extension of lumbar spine somewhat guarded secondary to pain, deep tendon reflexes normal, strength in upper and lower extremities [5/5], [abnormal gait noted] Neurological: speech clear, biblical studies professor equal, no gross sensory deficits Assessment:: Degenerative disc disease lumbar spine lumbar radiculopathy, spondylosis, sacroiliitis Plan:: We will look into the status of her last psychological evaluation we will also set her up with psychiatric care here at the hospital. We will move forward with a intrathecal pain pump trial when all of the appropriate paperwork from the psychologist is returned. She has been instructed to call the office if she has any issues prior to her next appointment. Dr. Vela has reviewed this note and agrees with this plan of care. This note was dictated using voice recognition software and may contain errors or omissions [facility] History I have reviewed the patient's past medical history: Yes Medical History: Reports:: Cancer (ovarian), Hyperlipidemia, Hypertension, Migraine, Valvular Heart Disease (leaky) Denies:: Diabetes Mellitus Type 1, Diabetes Mellitus Type 2, MRSA, Seizures *Have you ever received a pneumonia vaccine?: Yes *Have you received a flu vaccine this season?: Yes Other Medical History: Reports: Anemia, Arthritis, Chemotherapy. Denies: Blood Transfusion Reaction Other Surgeries: Yes: No Previous Surgery, Cholecystectomy, Colonoscopy, , Hysterectomy-Total Amputation: No Fractures: No - *Social History Smoking Status: Current every day smoker Tobacco Type: cigarettes # Packs/Day (cigarettes): 1 Alcohol Intake: never Alcohol Intake Frequency:: other Substance Use Type: denies use *Occupational Status:: other Housing: house Household Members: spouse *Travel in the last 8 weeks: None Family Hx:: Diabetes, Hyperlipidemia, Hypertension
== END ==
PROVIDERS: PCP Nurse Practitioner Family; Visit Provider Clinical Nurse Specialist Family Health
DX: M51.16 Intervertebral disc disorders with radiculopathy, lumbar region (principal); M12.88 Other specific arthropathies, not elsewhere classified, other specified site; M46.1 Sacroiliitis, not elsewhere classified
CPT/HCPCS: 99212

== ENCOUNTER 2020-11-05 13:00 | Emergency (ER) | payer MEDICARE, OTHER, SELFPAY ==
[2020-11-05 13:15] VITALS: BP 103/64; PULSE 98; RESP 20; TEMP 37.1; O2SAT 100; BMI 22.6
--- NOTE | 2020-11-05 13:41 | HMH.EDUTC ---
[facility] [place] Clinical Impression: Migraine Qualifiers: Migraine type: unspecified Status migrainosus presence: without status migrainosus Intractability: not intractable Qualified Code(s): G43.909 - Migraine, unspecified, not intractable, without status migrainosus Disposition: Home, Self-Care Condition on Discharge: Good Instructions: DI for Migraine Additional Instructions: Drink plenty of fluids. Resume your normal medications for migraine Follow up with your regular doctor. GO TO THE ER FOR ANY WORSENING SYMPTOMS Referrals: Surekha Cotto APRN [Primary Care Provider] - Forms: Work/School Release Time of Disposition: 14:10 Medical Decision Making - Medical Records Medical records reviewed: No: I reviewed the patient's medical records. - Dar Inquiry Pt receiving controlled substance: No Vital Signs: 11/05/20 13:15 Temperature 98.7 F Temperature Source Oral Pulse Rate [Right Brachial] 98 H Respiratory Rate 20 Blood Pressure [Right Arm] 103/64 L Blood Pressure Mean [Right Arm] 77 Blood Pressure Source [Right Arm] Automatic Cuff Blood Pressure Position [Right Arm] Sitting 02 Sat by Pulse Oximetry 100 Oxygen Delivery Method Room Air Orders (Tests/Meds): ED MEDICATIONS Discontinued Medications Generic Name Dose Route Start Last Admin Trade Name Freq PRN Reason Stop Dose Admin Ketorolac Tromethamine 60 mg 11/05/20 13:42 11/05/20 13:58 Ketorolac 60mg/2ml Vial IM 11/05/20 13:43 60 mg ONCE ONE Administration Methylprednisolone Sodium Succinate 125 mg 11/05/20 13:42 11/05/20 13:58 Methylprednisolone Sod Succ 125mg Vial IM 11/05/20 13:43 125 mg ONCE ONE Administration Metoclopramide HCl 10 mg 11/05/20 13:42 11/05/20 13:58 Metoclopramide Hcl 10mg/2ml Vial IM 11/05/20 13:43 10 mg ONCE ONE Administration [facility] [place] - General Stated complaint: migraine Time Seen by Provider: 11/05/20 13:41 Mode of Arrival: Ambulatory Source of Information: Patient Limitations: No Limitations Description of Symptoms (Recalled from Triage Doc. by RN): PATIENT C/O MIGRAINE WITH BLURRED VISION X 2 HOURS; REPORTS SHE TOOK HER MIGRAINE MEDICATION THIS MORNING HEENT Symptoms (Recalled from RN notes): Yes Resp Symptoms (Recalled from RN notes): No Skin Symptoms (Recalled from RN notes): No MS Symptoms (Recalled from RN notes): No Functional Status (Recalled from RN notes): WNL - History of Present Illness Provider Complaint: She c/o migraine head ache since this morning. She usually has to come here and get shots to get it better when this happens. - Related Data Home Medications Medication Instructions Recorded Confirmed esomeprazole magnesium 40 mg 40 mg PO DAILY #30 cap 11/06/19 09/20/20 capsule,delayed release rizatriptan 10 mg tablet 10 mg PO Q2H PRN 11/06/19 11/05/20 erenumab-aooe 70 mg/mL 70 mg SQ QMONTH 03/30/20 09/20/20 subcutaneous auto-injector gabapentin 800 mg tablet 400 mg PO QID tab 03/30/20 11/05/20 Miscellaneous [Unknown Home 1 tab PO DAILY 07/12/20 09/20/20 Medication] Previous Rx's Medication Instructions Recorded Cyclobenzaprine HCl [Flexeril 10mg 10 mg PO HS PRN #30 tab 06/28/20 tablet] Allergies Allergy/AdvReac Type Severity Reaction Status Date / Time codeine Allergy Severe S-DIFF. Verified 09/20/20 15:40 BREATHING Penicillins Allergy Intermediate I-HIVES Verified 09/20/20 15:40 amitriptyline Allergy Unknown Verified 09/20/20 15:40 - Worker's Comp Is this a Worker's Comp case?: No [facility] History - Hepatitis A Screen Drug use history?: No High risk sexual behaviors?: No History of sexually transmitted infection?: No Currently employed?: No Childcare worker?: No Do you have indoor plumbing?: Yes Do you have electricity?: Yes Attestation statement:: This patient has been screened for Hepatitis A risk factors. 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
[2020-11-05 14:14] VITALS: BP 103/64; PULSE 98; RESP 20; TEMP 37.1; O2SAT 100
== END 2020-11-05 14:23 | disposition home or self-care (01) ==
PROVIDERS: Emergency Provider Nurse Practitioner Family; PCP Nurse Practitioner Family
DX: G43.909 Migraine, unspecified, not intractable, without status migrainosus (principal); F17.210 Nicotine dependence, cigarettes, uncomplicated; I10 Essential (primary) hypertension; E78.5 Hyperlipidemia, unspecified; Z79.899 Other long term (current) drug therapy; Z88.0 Allergy status to penicillin
CPT/HCPCS: G0463; 96372; 99201

== ENCOUNTER → 2020-12-03 07:58 | Day surgery (SDC) | payer MEDICARE, OTHER, SELFPAY ==
[2020-12-03] VITALS (8 sets, daily range): BP systolic 91–130; BP diastolic 44–84; PULSE 78–98; RESP 18–20; TEMP 37.7; O2SAT 95–99
--- NOTE | 2020-12-03 09:13 | PC.NURSE ---
right AC #20 iv initiated
--- NOTE | 2020-12-03 09:31 | P.PCN_ITS ---
- Procedure Date: 12/03/20 Time: 09:32 Anesthesiologist:: Kody Vela MD Complications:: None Pre-procedure Diagnosis:: Disc disease of lumbar spine with lumbar radiculopathy symptoms and spondylosis with sacroiliitis Post-procedure Diagnosis:: Same Indications for Procedure:: This patient is a pleasant 54-year-old white female who we are treating for low back pain with lumbar radicular symptoms. She has failed all previous conservative therapy including multiple injections, epidural injections, RF ablations, SI joint injections and facet joint injections. She is also failed previous physical therapy. She is not a surgical candidate. She has had a successful psychological evaluation. Most of her pain is in the mid back and low back. She does have some radicular symptoms. We will do a intrathecal pump trial today to see if this helps with her pain symptoms. Procedure Details:: Pain pump trial Informed consent was obtained and the risk and benefits of the procedure was explained to the patient. The patient was taken to the procedure room and placed prone on the procedure table. Patient was prepped and draped in sterile fashion. C-arm fluoroscopy was used to view the lumbar spine. The skin and subcutaneous tissues were anesthetized using lidocaine. I placed a 18-gauge spinal needle into the L4-5 interspace and advanced until clear CSF was obtained. After this intrathecal catheter was inserted and advanced very easily to the L1 vertebral body. The needle was withdrawn. We were able to freely withdraw clear CSF through the catheter. We then injected intrathecal fentanyl single shot bolus of 25 mcg followed by saline and followed by the previous CSF that was withdrawn. The needle and catheter were then removed and a Band-Aid was placed. Patient tolerated the procedure well with no complications. We reevaluated the patient after 30 minutes to 1 hour. She was also reassessed by physical therapy. Patient was 90% better with her pain symptoms. She is also much more functional. Patient wants to proceed with permanent placement of intrathecal pain pump. We will plan on permanent placement of intrathecal mor phine pain pump. Catheter tip will be at the L1 vertebral body. We will start with intrathecal morphine 5 mg/mL to start at 0.25 mg/day. Plan and Disposition:: We will follow-up and plan on permanent placement of intrathecal morphine pain pump 5 mg/mL to start at 0.25 mg/day. We will also have the patient see Dr. Camp for permanent placement of intrathecal pain pump. Catheter tip will be at the T12 vertebral body. This is to help low back pain and leg pain as well as mid back pain.
--- NOTE | 2020-12-03 11:42 | PC.NURSE ---
0855-Physical therapist at bedside to perform assessment. 0930-pt ambulated back to bay after procedure. assisted to chair. VSS, no c/o pain. pt offered breakfast tray and is agreeable. 0940-pt c/o itching. medicated with benadryl per prn order. pt tolerating PO fluids at this time. 0945-pt resting in chair, eating breakfast. at beside. VSS, no c/o pain. pt without needs or concerns at this time. 1000-pt resting in chair, at bedside. not c/o pain, VSS. 1015-pt c/o nausea after eating breakfast. medicated with Zofran per prn order. VSS, no c/o pain. remains at bedside. 1030-pt resting in chair, no c/o pain. VSS. 1038-physical therapist at bedside to perform assessment. 1043-Dr. Vela at bedside.
--- NOTE | 2020-12-03 11:48 | PC.NURSE ---
1045-pt states nausea has resolved. expressed desire for discharge. understanding verbalized.
== END ==
PROVIDERS: PCP Nurse Practitioner Family; Visit Provider Anesthesiology
DX: M51.16 Intervertebral disc disorders with radiculopathy, lumbar region (principal); M47.896 Other spondylosis, lumbar region; M46.1 Sacroiliitis, not elsewhere classified; I10 Essential (primary) hypertension; E78.5 Hyperlipidemia, unspecified; J45.909 Unspecified asthma, uncomplicated; K21.9 Gastro-esophageal reflux disease without esophagitis; F41.9 Anxiety disorder, unspecified; F32.9 Major depressive disorder, single episode, unspecified; G43.909 Migraine, unspecified, not intractable, without status migrainosus; Z85.43 Personal history of malignant neoplasm of ovary; Z72.0 Tobacco use
CPT/HCPCS: 62323; 96365; 96372; J2405; Q9966

== ENCOUNTER → 2020-12-06 08:36 | Outpatient (POV) | payer MEDICARE, OTHER, SELFPAY ==
--- NOTE | 2020-12-06 08:50 | HMH.PAINSOAP ---
[facility] Pain Management SOAP Note Subjective:: Patient is a 55-year-old white female who presents today for follow-up after intrathecal pain pump trial. Patient states that since her trial on Sunday ended she has had an increase in pain. She rates it a 7 out of 10. Patient had an excellent trial. Patient states that she had full range of motion including the ability to touch her toes post trial. Patient states that she has no pain at the time. She had 90% relief of her symptomology during the trial. She is interested in moving forward with a intrathecal pain pump. We did discuss realistic goals and expectations along with post surgical care. ROS General: no recent weight change, no fever, no sleep disturbances Respiratory: no cough, no shortness of air, no recurring pulmonary infections Cardiovascular/Peripheral Vascular: No chest pain, No palpitations, no edema, no shortness of breath. Gastrointestinal: no new onset incontinence, normal bowel movements reported Genitourinary: no new onset incontinence Musculoskeletal: Back pain, leg pain Psychiatric: normal mood/ affect Neurological: [denies new onset weakness in extremities], [denies new onset balance issues] Objective:: Physical Exam General: Alert and oriented x3, no acute distress, pleasant and cooperative, [on room air] Lungs: Resps E/U, Symmetrical chest expansion, Eyes: PERRL Musculoskeletal: Flexion and extension of lumbar spine somewhat guarded secondary to pain, deep tendon reflexes normal, strength in upper and lower extremities [5/5], antalgic gait noted Neurological: speech clear, 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 twice daily for 5 days. We will also set her up for a permanent intrathecal pain pump implant. Patient's been instructed to call the office if she has any issues prior to her next appointment. Dr. Vela has reviewed this note and agrees with this plan of care. This note was dictated using voice recognition software and may contain errors or omissions [facility] History I have reviewed the patient's past medical history: Yes Medical History: Reports:: Cancer (ovarian), Hyperlipidemia, Hypertension, Migraine, Valvular Heart Disease (leaky) Denies:: Diabetes Mellitus Type 1, Diabetes Mellitus Type 2, MRSA, Seizures *Have you ever received a pneumonia vaccine?: No *Have you received a flu vaccine this season?: No Other Medical History: Reports: Anemia, Arthritis, Chemotherapy. Denies: Blood Transfusion Reaction Other Surgeries: Yes: No Previous Surgery, Cancer Surgery (ovarian), Cholecystectomy, Colonoscopy, , Hysterectomy-Total Amputation: No Fractures: No - *Social History Smoking Status: Current every day smoker Tobacco Type: cigarettes # Packs/Day (cigarettes): 1 Alcohol Intake: never Alcohol Intake Frequency:: other Substance Use Type: denies use *Occupational Status:: disabled Housing: house Household Members: spouse *Travel in the last 8 weeks: None Family Hx:: Diabetes, Hyperlipidemia, Hypertension
[2020-12-06 09:18] VITALS: BP 136/85; PULSE 59; RESP 18; TEMP 36.8; O2SAT 98; BMI 23.7
== END ==
PROVIDERS: Visit Provider Clinical Nurse Specialist Family Health
DX: M51.16 Intervertebral disc disorders with radiculopathy, lumbar region (principal); M47.896 Other spondylosis, lumbar region; M46.1 Sacroiliitis, not elsewhere classified
CPT/HCPCS: 99212; G0463

== ENCOUNTER → 2020-12-14 09:06 | Outpatient (CLI) | payer MEDICARE, OTHER, SELFPAY ==
[2020-12-14 10:01] LABS: Basophils # 0.1 K/mm3 (0-0.2); Basophils % 0.6 % (0.1-2.0); Eosinophils # 0.2 K/mm3 (0.0-0.4); Eosinophils % 1.8 % (0.1-12.0); Hematocrit 45.8 % (37.0-47.0); Hemoglobin 15.1 g/dL (12.2-16.2); Lymphocytes # 2.2 K/mm3 (0.7-4.5); Lymphocytes % 23.3 % (10-50); Mean Corpuscular Hemoglobin 33.5 pg (27.0-31.2); Mean Corpuscular Volume 101.5 fl (81-99); Mean Platelet Volume 8.6 fl (7.4-10.4); Monocytes # 0.4 K/mm3 (0.1-1.0); Monocytes % 3.8 % (1.7-9.3); Neutrophils # 6.7 K/mm3 (1.8-7.8); Neutrophils % 70.6 % (37.0-80.0); Platelet Count 248 K/mm3 (142-424); Red Blood Count 4.51 M/mm3 (4.20-5.40); Red Cell Distribution Width 13.3 % (11.5-17.5); White Blood Count 9.5 K/mm3 (4.8-10.8)
[2020-12-14 11:07] LABS: Chloride 100 mmol/L (98-107); Potassium 4.5 mmoL/L (3.5-5.1); Sodium 137 mmol/L (136-145)
[2020-12-14 11:10] LABS: Anion Gap 12.5 mEq/L (5-15); Blood Urea Nitrogen 11 mg/dl (7-17); Calcium 9.9 mg/dl (8.4-10.2); Carbon Dioxide 29 mmol/L (22.0-30.0); Estimated Glomerular Filt Rate 75 ml/min (>60); GFR (African American) 91 ML/MIN (>60); Glucose 80 mg/dl (74-100)
[2020-12-14 11:51] LABS: Amphetamine/Metha Screen,Urine Negative ng/ml (<1000)
[2020-12-14 11:52] LABS: Barbiturates Screen,Urine Negative ng/ml (<200)
[2020-12-14 11:53] LABS: Benzodiazepines Screen,Urine Negative ng/ml (<200); Cannabinoid Screen,Urine Negative ng/ml (<50)
[2020-12-14 11:54] LABS: Cocaine Screen,Urine Negative ng/ml (<300); Methadone Screen,Urine Negative ng/ml (<300)
[2020-12-14 11:55] LABS: Opiate Screen,Urine Negative ng/ml (<300)
[2020-12-14 11:57] LABS: Phencyclidine Screen,Urine Negative ng/ml (<25)
[2020-12-14 12:28] LABS: Coronavirus 19 IgG Antibody Negative (Negative); Coronavirus 19 IgM Antibody Negative (Negative)
== END ==
PROVIDERS: Visit Provider Anesthesiology
DX: Z01.812 Encounter for preprocedural laboratory examination (principal); Z11.52 Encounter for screening for COVID-19; M51.36 Other intervertebral disc degeneration, lumbar region
CPT/HCPCS: 36415; 80048; 80305; 85025; 86328

== ENCOUNTER 2020-12-15 09:41 | Day surgery (SDC) | payer MEDICARE, OTHER, SELFPAY ==
[2020-12-13 12:06] VITALS: BMI 217.4
[2020-12-15 10:49] VITALS: BP 124/84; PULSE 105; RESP 18; TEMP 36.3; O2SAT 100
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
--- NOTE | 2020-12-15 13:28 | HMH.ANESCL ---
[facility] Anesthesia Checklist - Patient Identification Patient Identification: Arm Band - Structural Data Admitted From: Home Planned Operative Procedure/s: pain pump Consent for Planned Operative Procedure(s) Verified: Yes Verified Documents: Surgical Consent - NPO Status Verified Time NPO: 00:00 - Additional verifications Anesthesia Reactions: No Hx Blood Transfusions: No Blood Transfusion Reaction: No - Anesthesia Plan Anesthesia Risk discussed: Yes Anesthesia Plan: Verified ASA Class: II Anesthesia Type: Local & MAC [facility] History I have reviewed the patient's past medical history: Yes Medical History: Reports:: Cancer (OVARIAN), Hyperlipidemia, Hypertension, Migraine, Valvular Heart Disease (leaky) Denies:: Diabetes Mellitus Type 1, Diabetes Mellitus Type 2, MRSA, Seizures *Have you ever received a pneumonia vaccine?: No *Have you received a flu vaccine this season?: No Other Medical History: Reports: Anemia, Arthritis, Chemotherapy. Denies: Blood Transfusion Reaction Anesthesia experience/problems:: no problems Other Surgeries: Yes: No Previous Surgery, Cancer Surgery (ovarian), Cholecystectomy, Colonoscopy, , Hysterectomy-Total Amputation: No Fractures: No - *Social History Last grade of school completed: High school graduate Smoking Status: Current every day smoker Tobacco Type: cigarettes # Packs/Day (cigarettes): 1 Alcohol Intake: never Alcohol Intake Frequency:: other Substance Use Type: denies use *Occupational Status:: employed, disabled Housing: house Household Members: spouse *Travel in the last 8 weeks: None Family Hx:: Diabetes, Hyperlipidemia, Hypertension
--- NOTE | 2020-12-15 13:53 | HMH.OPNOTE ---
Date of procedure: 12/15/20 Pre-op Diagnosis:: Degenerative disc disease of the lumbar spine with radiculopathy Post-op Diagnosis:: Same Procedure performed:: Placement of pain pump generator Surgeon:: Nic Esquivel MD [employer] LOAD AND UNLOAD:: Tan Ivan, Rolf Hogan, Carlton Lux, Carlos Forrest, Other Anesthesia: MAC Estimated blood loss (mL): 5 Operative findings:: Not applicable Operative note:: Once adequate IV sedation was obtained the patient was placed prone on the operating table and her back and flank regions were prepped and draped in sterile fashion. Paraspinal incision made by Dr. Kaba which an intrathecal catheter was passed into the intrathecal space to the area desired by Dr. Henriquez. The lead was then fixed the paraspinal fascia with fixation devices and 2-0 Prolene suture. Utilizing the tunneling device the catheter was passed from the paraspinal incision to the pocket incision. Catheter connected the generator which was placed in the pocket. Both pockets irrigated with antibiotic solution. CSF was aspirated from the generator noting patency of the system. Subcutaneous tissues closed with 2-0 Vicryl. Skin closed with 4-0 nylon. Wound VAC dressing and binder applied to the wound. The patient tolerated procedure well and was taken to the recovery in stable condition. Upon recovery she will be discharged home and will follow-up in the office in 1 week for wound VAC removal and in 2 weeks for suture removal. Biotic x1 week per protocol. The patient tolerated the procedure well Condition: stable Disposition: PACU Complications:: None
--- NOTE | 2020-12-15 13:59 | P.OP_ITS ---
Date of procedure: 12/15/20 Pre-op Diagnosis:: Degenerative disc disease of lumbar spine with lumbar radiculopathy symptoms and spondylosis with sacroiliitis Post-op Diagnosis:: Same Procedure performed:: Intrathecal catheter placement with tunneling for permanent placement of int rathecal pain pump Surgeon:: Kody Vela MD ARCHIVIST POLITICAL HISTORY:: Other Anesthesia: MAC Estimated blood loss (mL): 5 Clinical Note:: Patient is a pleasant 54-year-old white female who we are treating for low back pain with lumbar radiculopathy symptoms. She has failed all previous cons ervative therapy including multiple injections, epidural injections, RF ablations, SI joint injections and facet joint injections. She is also failed physical therapy. She is not a surgical candidate. She has had a successful psychological evaluation. She also had a successful intrathecal pump trial. She was 80 to 90% better. She was also much more functional. She presents for permanent placement of intrathecal pain pump today. We will do intrathecal morphine 5 mg/mL and started at 0.25 mg/day. Operative findings:: None Operative note:: Informed consent was obtained and the risk and benefits of the procedure were explained to the patient. The patient was taken to the procedure room. The back was prepped using ChloraPrep. The skin and subcutaneous tissues adjacent to the L4-5 and L5-S1 interspace were anesthetized using lidocaine. I made an incision and dissected down to the lumbar paraspinous fascia. A 14-gauge spinal needle was inserted and advanced into the L4-5 interspace until clear CSF was obtained. After this intrathecal catheter was inserted and advanced very easily to the L1 vertebral body. The stylette of the catheter and the needle were withdrawn. The catheter was secured to the fascia with 2 anchoring devices and 2-0 Prolene. I prepared the pump with 20 mL of intrathecal morphine 5 mg/mL while Dr. Esquivel prepared the pump pocket. I tunneled the catheter from the back to the pump pocket and attached the catheter to the pump. We were able to freely withdraw clear CSF through the side-port. The pump was placed in the pocket. The pump was secured to the fascia with 2-0 Prolene. Both incisions were irrigated with bacitracin solution. Both incisions were then closed with 2-0 Vicryl followed by 4-0 nylon. The pump was interrogated and started at 0.25 mg/day of intrathecal morphine. Patient tolerated the procedure well with no complications. She was discharged home neurologically intact with good relief of pain symptoms. Plan and disposition: We will follow-up with patient in 1 week for reprogramming and wound check. We will follow-up in 2 weeks for suture removal. If the p atient has any problems or questions she is to call us back in the pain clinic. Condition: stable Disposition: PACU Complications:: None
[2020-12-15 14:05] VITALS: BP 94/61; PULSE 109; RESP 18; TEMP 36.8; O2SAT 99
[2020-12-15 14:20] VITALS: BP 100/73; PULSE 107; RESP 20; O2SAT 99
[2020-12-15 14:35] VITALS: BP 100/76; PULSE 103; RESP 18; O2SAT 99
[2020-12-15 14:50] VITALS: BP 101/79; PULSE 103; RESP 100; O2SAT 99
[2020-12-15 15:30] VITALS: BP 104/74; PULSE 101; RESP 20; O2SAT 99
== END 2020-12-15 15:30 ==
LOC: OR 09:42
PROVIDERS: PCP Nurse Practitioner Family; Visit Provider Anesthesiology
PROC: (CPT 62350; principal; 2020-12-15 11:30)
DX: M51.16 Intervertebral disc disorders with radiculopathy, lumbar region (principal); M54.06 Panniculitis affecting regions of neck and back, lumbar region; M46.1 Sacroiliitis, not elsewhere classified; Z85.43 Personal history of malignant neoplasm of ovary; E78.5 Hyperlipidemia, unspecified; I10 Essential (primary) hypertension; G43.909 Migraine, unspecified, not intractable, without status migrainosus; I38 Endocarditis, valve unspecified; D64.9 Anemia, unspecified; M19.90 Unspecified osteoarthritis, unspecified site; Z72.0 Tobacco use; Z83.3 Family history of diabetes mellitus
CPT/HCPCS: 62350; 62362; 96374; C1755; C1772; J3370

== ENCOUNTER → 2020-12-17 12:24 | Outpatient (POV) | payer MEDICARE, OTHER, SELFPAY ==
[2020-12-17 12:57] VITALS: BP 139/81; PULSE 108; RESP 18; TEMP 36.4; O2SAT 98; BMI 22.6
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
== END ==
PROVIDERS: Visit Provider Anesthesiology
DX: M51.16 Intervertebral disc disorders with radiculopathy, lumbar region (principal)
CPT/HCPCS: 62368; 99212; G0463

== ENCOUNTER → 2020-12-23 10:22 | Outpatient (POV) | payer MEDICARE, OTHER, SELFPAY ==
[2020-12-23 10:50] VITALS: BP 133/79; PULSE 74; RESP 18; TEMP 36.4; O2SAT 99; BMI 24.4
--- NOTE | 2020-12-23 11:07 | HMH.PMPROC ---
- Procedure Date: 12/23/20 Time: 11:07 Anesthesiologist:: Valerie Estes APRN Complications:: None Pre-procedure Diagnosis:: degenerative disc disease lumbar spine lumbar radiculopathy Post-procedure Diagnosis:: same Indications for Procedure:: Patient is a pleasant 55-year-old white female who presents today for follow-up after her intrathecal pain pump placement. Patient is currently at 0.25 mg of morphine. Patient denies any side effects she would like a slight increase today she rates her pain today 4 out of 10. Patient's wound VAC has been removed site is healing well no sign symptoms of infection, stitches intact. Procedure Details:: Informed consent was obtained and the risk and benefits of the procedure were explained to the patient. The patient was taken to the procedure room where noninvasive monitoring was placed including noninvasive blood pressure cuff and pulse oximeter. Patient's pump was interrogated and reprogrammed. The infusion rate was increased to 0.3 mg/day and her PTC was set up at 0.03 mg up to 4 times a day.. The patient tolerated the procedure well. Plan and Disposition:: We will see the patient back in 2 weeks reassess her symptoms at that time she has been instructed to call the office if she has any issues prior to her next appointment. Dr. Vela has reviewed this note and agrees with this plan of care. This note was dictated using voice recognition software and may contain errors or omissions
== END ==
PROVIDERS: PCP Nurse Practitioner Family; Visit Provider Clinical Nurse Specialist Family Health
DX: M51.16 Intervertebral disc disorders with radiculopathy, lumbar region (principal)
CPT/HCPCS: 62368

== ENCOUNTER → 2020-12-27 10:31 | Outpatient (POV) | payer MEDICARE, OTHER, SELFPAY ==
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
[2020-12-27 12:16] VITALS: BP 128/88; PULSE 74; RESP 18; TEMP 36.8; O2SAT 99; BMI 24.4
== END ==
PROVIDERS: PCP Nurse Practitioner Family; Visit Provider Clinical Nurse Specialist Family Health
DX: M51.16 Intervertebral disc disorders with radiculopathy, lumbar region (principal)
CPT/HCPCS: 99212; G0463

== ENCOUNTER → 2020-12-30 10:34 | Outpatient (POV) | payer MEDICARE, OTHER, SELFPAY ==
[2020-12-30 11:26] VITALS: BP 125/78; PULSE 62; RESP 18; TEMP 35.7; O2SAT 98; BMI 22.6
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
== END ==
PROVIDERS: Visit Provider Clinical Nurse Specialist Family Health
DX: M51.16 Intervertebral disc disorders with radiculopathy, lumbar region (principal); Z45.1 Encounter for adjustment and management of infusion pump
CPT/HCPCS: 62368

== ENCOUNTER → 2021-01-10 08:53 | Outpatient (POV) | payer MEDICARE, OTHER, SELFPAY ==
[2021-01-10 09:19] VITALS: BP 141/74; PULSE 85; RESP 18; TEMP 36.8; O2SAT 98; BMI 24.4
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
== END ==
PROVIDERS: Visit Provider Clinical Nurse Specialist Family Health
DX: M51.16 Intervertebral disc disorders with radiculopathy, lumbar region (principal)
CPT/HCPCS: 99212; G0463

== ENCOUNTER → 2021-01-21 13:45 | Outpatient (POV) | payer MEDICARE, OTHER, SELFPAY ==
--- NOTE | 2021-01-21 16:03 | HMH.PMPROC ---
- Procedure Date: 01/21/21 Time: 16:03 Anesthesiologist:: Kody Vela MD Complications:: None Pre-procedure Diagnosis:: Degenerative disc disease of lumbar spine with lumbar radiculopathy symptoms Post-procedure Diagnosis:: Same Indications for Procedure:: Patient is a pleasant 55-year-old white female who we are treating for low back pain with lumbar radiculopathy symptoms. She does have an intrathecal morphine pain pump in place going at 0.5 mg/day. She does have some increasing pain in her mid back. We will give her a bolus her intrathecal morphine pain pump. We will make adjustments to her PTC. Procedure Details:: Adjustment of intrathecal morphine pain pump Informed consent was obtained risk and benefits of the procedure were explained to the patient. Patient was taken the procedure room. The pump was interrogated. Intrathecal morphine infusion remained at 0.5 mg/day. Patient was given a bolus while here in clinic of 0.1 mg over 5 minutes. This did help significantly. She did not have her PTC device. However on Sunday we will adjust her PTC device to 0.1 mg up to 4 times a day. Patient tolerated the procedure well with no complications. Plan and Disposition:: Patient is to bring her PTC device in on Sunday. We will make adjustments and increase it to 0.1 mg up to 4 times a day. Her constant flow will remain at 0.5 mg/day.
== END ==
PROVIDERS: PCP Nurse Practitioner Family; Visit Provider Anesthesiology
DX: M51.16 Intervertebral disc disorders with radiculopathy, lumbar region (principal); Z45.1 Encounter for adjustment and management of infusion pump
CPT/HCPCS: 96374

== ENCOUNTER → 2021-02-09 07:41 | Outpatient (CLI) | payer MEDICARE, OTHER, SELFPAY ==
--- NOTE | 2021-02-09 07:54 | CA_ITS ---
APPROVED REPORT Bilateral Lower Extremity Venous Study for DVT. [employer] Medic: ENOC JoeT Indications Lower Extremity Edema: Bilateral Current Smoker History of Smoking SWELLING NICHOLE ANKLES X SEVERAL WEEKS Risk Factors Current Smoker Vein Imaging CFV (R): compressive, spontaneous, phasic, augmentation FEM (R): compressive, spontaneous, phasic, augmentation POP (R): compressive, spontaneous, phasic, augmentation PTV (R): Compressible GSV (R): Compressible Peroneals (R):Compressible GAS (R): Compressible CFV (L): compressive, spontaneous, phasic, augmentation FEM (L): compressive, spontaneous, phasic, augmentation POP (L): compressive, spontaneous, phasic, augmentation PTV (L): Compressible GSV (L): Compressible Peroneals (L):Compressible GAS (L): Compressible Findings Study suggests no evidence of DVT of the bilateral lower extremites. Study suggests no evidence of SVT of the bilateral lower extremities. Conclusion Study suggests no evidence of DVT of the bilateral lower extremites. Study suggests no evidence of SVT of the bilateral lower extremities. Electronically signed by : Nacho Bennett MD 02/09/2021 19:24:05
[2021-02-09 11:12] VITALS: BP 110/73; PULSE 101; RESP 20; O2SAT 100; BMI 22.1
--- NOTE | 2021-02-09 11:36 | PC.NURSE ---
called in Rx for Zanaflex 4mg TID with 1 refill to pt's pharmacy per MD order.
--- NOTE | 2021-02-09 13:14 | HMH.PAINSOAP ---
[facility] Pain Management SOAP Note Subjective:: This patient is a pleasant 55-year-old white female who we are treating for mid back pain and low back pain with lumbar radiculopathy symptoms. She currently is an intrathecal morphine pain pump going at 0.5 mg/day. She does get PTC boluses of 0.1 mg up to 4 times a day. Boluses did not help her pain symptoms in her mid back. The pump really does not help her mid back. Her pain seems to be myofascial in the thoracic paraspinous area. She has had an epidural steroid injection in the past which did not give her much long-term relief. She is not on any muscle relaxants. We will start her on Zanaflex 4 mg 3 times a day to see if this helps her as her pain does worsen throughout the day the more she stands. Objective:: Alert and oriented x3 no acute distress. Patient does have some increasing mid back pain. She is tender over the thoracic paraspinous muscles. Trigger points are identified. Current intrathecal morphine infusion at 0.5 mg/day. Assessment:: Degenerative disc disease of lumbar spine with lumbar radiculopathy symptoms with increasing mid back pain myofascial in origin. Plan:: We will continue her intrathecal morphine pain pump at 0.5 mg/day with PTC boluses of 0.1 mg up to 4 times a day. We will start her on Zanaflex 4 mg up to 3 times a day to help with her mid back pain which is myofascial in origin. If the medication does not help then we will plan on trigger point injections to the thoracic paraspinous muscles [facility] History Medical History: Reports:: Cancer (OVARIAN), Hyperlipidemia, Hypertension, Migraine, Valvular Heart Disease (leaky) Denies:: Diabetes Mellitus Type 1, Diabetes Mellitus Type 2, MRSA, Seizures *Have you ever received a pneumonia vaccine?: No *Have you received a flu vaccine this season?: Yes Other Medical History: Reports: Anemia, Arthritis, Chemotherapy. Denies: Blood Transfusion Reaction Other Surgeries: Yes: No Previous Surgery, Cancer Surgery (ovarian), Cholecystectomy, Colonoscopy, , Hysterectomy-Total Amputation: No Fractures: No - *Social History Smoking Status: Current every day smoker Tobacco Type: cigarettes # Packs/Day (cigarettes): 1 Alcohol Intake: never Alcohol Intake Frequency:: other Substance Use Type: denies use *Occupational Status:: employed Housing: house Household Members: spouse *Travel in the last 8 weeks: None Family Hx:: Diabetes, Hyperlipidemia, Hypertension
== END ==
PROVIDERS: PCP Nurse Practitioner Family; Visit Provider Anesthesiology
DX: R22.43 Localized swelling, mass and lump, lower limb, bilateral
CPT/HCPCS: 93970; 99212; G0463

== ENCOUNTER → 2021-02-28 08:24 | Outpatient (POV) | payer MEDICARE, OTHER, SELFPAY ==
[2021-02-28 08:39] VITALS: BP 112/79; PULSE 71; RESP 18; O2SAT 98; BMI 22.3
--- NOTE | 2021-02-28 08:51 | P.PCN_ITS ---
- Procedure Date: 02/28/21 Time: 08:51 Anesthesiologist:: Valerie Estes APRN Complications:: None Pre-procedure Diagnosis:: Degenerative disc disease lumbar spine with lumbar radiculopathy symptoms, right hip pain Post-procedure Diagnosis:: Same Indications for Procedure:: Patient is a pleasant 55-year-old white female who presents today for thecal pain pump adjustment. She is currently on morphine 0.5 mg/day. She is having increasing pain she rates it a 7 out of 10. Mostly in her upper back and also right hip. She has extreme tenderness over right greater trochanteric bursa. Patient tried her muscle relaxers with no success. She would like a slight increase in her intrathecal therapy today. She denies any side effects to this. [facility] #[id number] reviewed and appropriate. Procedure Details:: Informed consent was obtained and the risk and benefits of the procedure were explained to the patient. The patient was taken to the procedure room where noninvasive monitoring was placed including noninvasive blood pressure cuff and pulse oximeter. Patient's pump was interrogated and reprogrammed. The infusion rate was increased to 0.6 mg of morphine a day. The patient tolerated the procedure well. Plan and Disposition:: We will set the patient up for right greater trochanteric bursa injection. We will also see her back for her next intrathecal pain pump refill and reprogram. Dr. Vela has reviewed this note and agrees with this plan of care. This note was dictated using voice recognition software and may contain errors or omissions
== END ==
PROVIDERS: Visit Provider Clinical Nurse Specialist Family Health
DX: M51.16 Intervertebral disc disorders with radiculopathy, lumbar region (principal); M25.551 Pain in right hip
CPT/HCPCS: 62368

== ENCOUNTER 2021-03-03 08:08 | Emergency (ER) | payer MEDICARE, OTHER, SELFPAY ==
[2021-03-03 08:09] VITALS: BP 133/79; PULSE 72; RESP 18; TEMP 36.9; O2SAT 98; BMI 22.3
--- NOTE | 2021-03-03 08:12 | ECG_ITS ---
APPROVED REPORT Exam: Resting ECG HR:78 bpm ECG Measurements Heart Rate 78 AXES FL 132 P 40 QRSd 84 QRS 41 QT 358 T 21 QTc 408 Conclusion Normal sinus rhythm Nonspecific T wave abnormality Abnormal ECG Electronically signed by : Rolf Linda, 03/03/2021 17:31:26
--- NOTE | 2021-03-03 08:21 | HMH.EDGENADL ---
ED Disposition Clinical Impression: Lightheadedness, Gait instability, TIA (transient ischemic attack) Disposition: Home, Self-Care Condition on Discharge: Good Additional Instructions: Take aspirin 81 mg daily, starting tomorrow. Take Plavix as prescribed, starting tomorrow. Take the atorvastatin as prescribed, starting tonight. See Elle Cotto in the office tomorrow. Return to the emergency department if symptoms worsen. Prescriptions: Atorvastatin Calcium [Lipitor 40mg Tab] 40 mg PO HS #30 tab [id number] Clopidogrel Bisulfate [Plavix 75mg Tab] 75 mg PO DAILY #30 tab Transmission Status: Pending to [facility] Referrals: Surekha Cotto APRN [Primary Care Provider] - Forms: Work/School Release - Critical Care Critical Care Time: No Attestation: On , the high probability of a clinically significant, sudden or life threatening deterioration of the following system(s) required my full and direct attention, intervention and personal management. The time I documented below is in addition to time spent performing reported procedures but includes the following listed in this critical care notation. Medical Decision Making - Medical Records Medical records reviewed: Yes: I reviewed the patient's medical records. MR Comment: Reviewed CT scan results 08/16/2020. Negative scan. Indication for exam was: PARESTHESIA OF SKIN,LT ARM PAIN,WEAKNESS,HEADACHE left facial numbness, left facial droop, left. arm weakness - Dar Inquiry Pt receiving controlled substance: No Vital Signs: 03/03/21 08:09 03/03/21 09:43 Temperature 98.5 F Temperature Source Oral Pulse Rate 60 Pulse Rate [Radial] 72 Respiratory Rate 18 Blood Pressure 107/77 L Blood Pressure [Right Arm] 133/79 Blood Pressure Mean [Right Arm] 97 Blood Pressure Source Automatic Cuff Blood Pressure Position Sitting Blood Pressure Position [Right Arm] Sitting 02 Sat by Pulse Oximetry 98 97 Oxygen Delivery Method Room Air Room Air - Lab Data Lab Results 03/03/21 08:21: WBC 7.2, RBC 4.18 L, Hgb 13.5, Hct 40.7, MCV 97.3, MCH 32.2 H, MCHC 33.1, RDW 13.6, Plt Count 222, MPV 8.0, Neut % (Auto) 52.3, Lymph % (Auto) 38.9, Bonner % (Auto) 4.9, Eos % (Auto) 3.3, Baso % (Auto) 0.7, Neut # (Auto) 3.8, Lymph # (Auto) 2.8, Bonner # (Auto) 0.4, Eos # (Auto) 0.2, Baso # (Auto) 0.1 03/03/21 08:21: Sodium 139, Potassium 3.2 L, Chloride 105, Carbon Dioxide 28, Anion Gap 9.2, BUN 17, Creatinine 0.70, Estimated Creat Clear 84, Estimated GFR 88, Est GFR ( Amer) 106, Glucose 82, Calcium 8.9, Troponin I < 0.01 Result diagrams: 03/03/21 08:21 03/03/21 08:21 Orders (Tests/Meds): ED MEDICATIONS Discontinued Medications Generic Name Dose Route Start Last Admin Trade Name Freq PRN Reason Stop Dose Admin Iopamidol 100 ml 03/03/21 09:12 03/03/21 09:13 Iopamidol-370 (76%);100ml Bottle IV 03/03/21 09:13 100 ml ONCE ONE Administration Sodium Chloride 50 ml 03/03/21 09:12 03/03/21 09:13 0.9 % Sodium Chloride 50 Ml Vial IV 03/03/21 09:13 50 ml ONCE ONE Administration Sodium Chloride 10 ml 03/03/21 09:12 03/03/21 09:13 Sodium Chloride 0.9% 10ml Syr (Rad Only) IV 03/03/21 09:13 10 ml ONCE ONE Administration ORDERS Category Date Time Status Troponin I Q3H Lab 03/03/21 11:30 Ordered Troponin I Q3H Lab 03/03/21 14:30 Ordered - Radiology Data #1 Image(s): Chest Image Reviewed: Yes I have reviewed radiologist's interpretation PROCEDURE: XR CHEST PORTABLE CLINICAL HISTORY: LIGHTHEADED Smoker, tobacco use COMPARISON: CR CXR CHEST(2 VIEWS-NOT PORTABLE) from 04/16/[address] [facility] [address] CHEST W/O CONTRAST from 06/21/2015 CR CXR2V XR chest 2V from 01/27/2019 CR,ECG XR CHEST 2V from 07/15/2019 FINDINGS: The cardiomediastinal silhouette and pulmonary vascularity are within normal limits. Hyper lucency of the upper lobes which may be see
--- NOTE | 2021-03-03 08:22 | XR_ITS ---
PROCEDURE: XR CHEST PORTABLE CLINICAL HISTORY: LIGHTHEADED Smoker, tobacco use COMPARISON: CR CXR CHEST(2 VIEWS-NOT PORTABLE) from 04/16/[address] [facility] [address] CHEST W/O CONTRAST from 06/21/2015 CR CXR2V XR chest 2V from 01/27/2019 CR,ECG XR CHEST 2V from 07/15/2019 FINDINGS: The cardiomediastinal silhouette and pulmonary vascularity are within normal limits. Hyper lucency of the upper lobes which may be seen with COPD. No lobar consolidation or collapse. Mild thoracic scoliosis convex right and lumbar scoliosis convex left. Metallic device noted in the right mid abdominal region may be related to a pain pump or neurostimulator IMPRESSION: COPD. No acute finding. Dictated by: Nacho Bennett MD 03/03/2021 08:42 Nacho Bennett MD in [place] 03/03/2021 08:42
[2021-03-03 08:32] LABS: Basophils # 0.1 K/mm3 (0-0.2); Basophils % 0.7 % (0.1-2.0); Eosinophils # 0.2 K/mm3 (0.0-0.4); Eosinophils % 3.3 % (0.1-12.0); Hematocrit 40.7 % (37.0-47.0); Hemoglobin 13.5 g/dL (12.2-16.2); Lymphocytes # 2.8 K/mm3 (0.7-4.5); Lymphocytes % 38.9 % (10-50); Mean Corpuscular HGB Conc 33.1 g/dL (31.8-35.4); Mean Corpuscular Hemoglobin 32.2 pg (27.0-31.2); Mean Corpuscular Volume 97.3 fl (81-99); Monocytes # 0.4 K/mm3 (0.1-1.0); Monocytes % 4.9 % (1.7-9.3); Neutrophils # 3.8 K/mm3 (1.8-7.8); Neutrophils % 52.3 % (37.0-80.0); Platelet Count 222 K/mm3 (142-424); Red Blood Count 4.18 M/mm3 (4.20-5.40); Red Cell Distribution Width 13.6 % (11.5-17.5); White Blood Count 7.2 K/mm3 (4.8-10.8)
--- NOTE | 2021-03-03 08:35 | CT_ITS ---
PROCEDURE: CT HEAD/BRAIN WO CON CLINICAL INDICATION: tia Weakness for 3 days COMPARISON: CT CT HEAD/BRAIN WO CON from 08/16/2020 TECHNIQUE: Axial images obtained. All CT scans at the facility use one or more dose reduction, viz: automated exposure control, ma/kV adjustment per patient size (including targeted exams where dose is matched to indication, i.e. head), or iterative reconstruction technique. FINDINGS: No midline shift, mass effect, intracranial hemorrhage, hydrocephalus, or extra-axial fluid collection is evident. The calvarium has an unremarkable appearance. No mastoid effusion. No sinus air-fluid level. IMPRESSION: No acute intracranial finding Dictated by: Nacho Bennett MD 03/03/2021 09:31 Nacho Bennett MD in [place] 03/03/2021 09:31
--- NOTE | 2021-03-03 08:35 | CT_ITS ---
Procedure: CT ANGIO NECK CLINICAL HISTORY: tia Generalized weakness COMPARISON: CT CT ANGIO HEAD from 03/03/2021 TECHNIQUE: IV Contrast: 100ml Isovue 370 Axial images obtained with sagittal and coronal reformats. All CT scans at the facility use one or more dose reduction, viz: automated exposure control, ma/kV adjustment per patient size (including targeted exams where dose is matched to indication, i.e. head), or iterative reconstruction technique. FINDINGS: CTA neck: The aortic arch has an unremarkable appearance. Beam hardening artifact from the contrast within the left brachiocephalic vein causes some obscuration of the proximal aspect of the great vessels. There does appear to be moderate stenosis involving the proximal aspect of the left subclavian artery this area of stenosis is approximately 70 percent. No stenosis evident of the carotids or vertebrals. There is a mild amount of eccentric plaque in the left bulb without stenosis. The vertebral arteries have an unremarkable appearance. No evidence of dissection or aneurysm of the carotids or vertebrals. CTA head: Minimal calcific plaque involves the cavernous portion of the right ICA without stenosis. No aneurysm, AVM, or major intracranial occlusive process evident. There is mild smooth stenosis of the distal aspect of the left vertebral artery just proximal to the basilar artery. This area of stenosis is approximately 25 percent. Mild centrilobular emphysematous changes in the lung apices with bronchial thickening. Mildly enlarged lymph nodes are present in the middle mediastinum with mild nonspecific thickening of the esophagus. The nodes measure up to 2.5 by 2.3 cm. There are few scattered small cervical nodes. The No intracranial enhancing lesions evident. No obvious sinus thrombosis. IMPRESSION: 1. No stenosis or occlusion of the carotid or vertebral arteries. No evidence of dissection. 2. 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 The 3. Mild stenosis of the distal aspect of the left vertebral of 25-30 percent 4. Mild mediastinal adenopathy 5. Other nonacute findings as described above Dictated by: Nacho Bennett MD 03/03/2021 09:47 Nacho Bennett MD in [place] 03/03/2021 09:47
[2021-03-03 08:43] LABS: Chloride 105 mmol/L (98-107)
[2021-03-03 08:44] LABS: Potassium 3.2 mmoL/L (3.5-5.1); Sodium 139 mmol/L (136-145)
[2021-03-03 08:46] LABS: Blood Urea Nitrogen 17 mg/dl (7-17); Creatinine Clearance Estimated 84 mL/min (50-200); Estimated Glomerular Filt Rate 88 ml/min (>60); GFR (African American) 106 ML/MIN (>60)
[2021-03-03 08:47] LABS: Anion Gap 9.2 mEq/L (5-15); Calcium 8.9 mg/dl (8.4-10.2); Carbon Dioxide 28 mmol/L (22.0-30.0); Glucose 82 mg/dl (74-100)
[2021-03-03 09:04] LABS: Troponin I < 0.01 ng/ml (0.00-0.034)
[2021-03-03 09:43] VITALS: BP 107/77; PULSE 60; O2SAT 97
--- NOTE | 2021-03-03 10:00 | PC.NURSE ---
CALL PLACED TO DR FLETCHER
[2021-03-03 10:23] VITALS: BP 118/75; PULSE 75; O2SAT 100
[2021-03-03 10:37] VITALS: BP 112/54; PULSE 78; RESP 16; TEMP 36.6; O2SAT 98
== END 2021-03-03 10:39 | disposition home or self-care (01) ==
PROVIDERS: Emergency Provider Emergency Medicine; PCP Nurse Practitioner Family
DX: G45.8 Other transient cerebral ischemic attacks and related syndromes (principal); G43.709 Chronic migraine without aura, not intractable, without status migrainosus; I10 Essential (primary) hypertension; E78.5 Hyperlipidemia, unspecified; F17.210 Nicotine dependence, cigarettes, uncomplicated; K21.9 Gastro-esophageal reflux disease without esophagitis; Z88.0 Allergy status to penicillin; Z88.5 Allergy status to narcotic agent; Z79.899 Other long term (current) drug therapy
CPT/HCPCS: 70450; 70496; 70498; 71045; 80048; 84484; 85025; 93005; 99282; Q9967

== ENCOUNTER 2021-03-07 15:51 | Emergency (ER) | payer MEDICARE, OTHER, SELFPAY ==
[2021-03-07 16:00] VITALS: BP 127/85; PULSE 97; RESP 18; TEMP 37.2; O2SAT 99; BMI 21.9
--- NOTE | 2021-03-07 16:40 | PC.NURSE ---
GOOD RADIAL PULSE TO LEFT ARM , WARM TO TOUCH WITH GOOD COLOR
[2021-03-07 17:28] VITALS: BP 120/65; PULSE 90; RESP 18; TEMP 37.2; O2SAT 99
--- NOTE | 2021-03-07 17:28 | PC.NURSE ---
and pt stated that they do not want to wait for the doctor and they want to leave. Pt left without seeing the MD
== END 2021-03-07 17:28 | disposition left against medical advice (07) ==
PROVIDERS: Emergency Provider Family Medicine; PCP Nurse Practitioner Family
DX: Z53.21 Procedure and treatment not carried out due to patient leaving prior to being seen by health care provider (principal)
CPT/HCPCS: G0463; 99203

== ENCOUNTER 2021-03-21 12:53 | Day surgery (SDC) | payer MEDICARE, OTHER, SELFPAY ==
[2021-03-21 13:26] VITALS: BP 110/68; PULSE 82; RESP 18; TEMP 36.6; O2SAT 98; BMI 21.9
[2021-03-21 13:52] VITALS: BP 129/86; PULSE 77; RESP 18
[2021-03-21 13:53] VITALS: BP 130/85; PULSE 87; RESP 18; O2SAT 100
--- NOTE | 2021-03-21 13:55 | P.PCN_ITS ---
- Procedure Date: 03/21/21 Time: 13:55 Anesthesiologist:: Valerie Estes APRN Complications:: None Pre-procedure Diagnosis:: Degenerative disc disease lumbar spine lumbar radiculopathy symptoms, back pain Post-procedure Diagnosis:: Same Indications for Procedure:: Patient is a very pleasant 55-year-old white male female who presents today for intrathecal pain pump refill and reprogram. She rates her pain today 6 out of 10 and would like a slight increase. [facility] #[id number] reviewed and appropriate drug screens have been appropriate. Patient recently put on anticoagulation the rapy due to blockages of her arteries in her left arm. She is awaiting a Doppler for bilateral lower extremities today. Procedure Details:: Informed consent was obtained and the risk and benefits of the procedure were explained to the patient. The patient was taken to the procedure room where noninvasive monitoring was placed including noninvasive blood pressure cuff and pulse oximeter. Patient's pump was interrogated. The area over the pump was cleansed with chlorhexidine as a cleansing solution. In sterile fashion the pump was accessed with a 22-gauge needle. Approximately 7 mL's were removed of the pump solution and discarded appropriately. The pump was then refilled with 20 mL's of morphine 5 mg/mL. The needle was withdrawn and a bandage was placed over the puncture site. The infusion rate was reprogrammed to 0.75 mg/day. The patient tolerated the procedure well. Plan and Disposition:: We will see the patient back at her next intrathecal pain pump refill and reprogram she has been instructed to call the office if she has any issues prior to her next appointment. Dr. Vela has reviewed this note and agrees with this p [facility] of care. This note was dictated using voice recognition software and may contain errors or omissions
--- NOTE | 2021-03-21 14:05 | US_ITS ---
APPROVED REPORT Exam Type: Lower Extremity Segmental Pressures Environmental Protection Officer: Yola Maya RVT Indications Current Smoker PAD Risk Factors Hyperlipidemia Current Smoker Pressures/Indices Right Indices Left Indices Brachial 126.00 mmHg Brachial 136.00 mmHg Low Thigh 144.00 mmHg 1.06 Low Thigh 158.00 mmHg 1.16 Calf 149.00 mmHg 1.10 Calf 146.00 mmHg 1.07 Ankle(PT) 148.00 mmHg 1.09 Ankle(PT) 165.00 mmHg 1.21 Ankle(DP) 148.00 mmHg 1.09 Ankle(DP) 150.00 mmHg 1.10 Digit 88.00 mmHg 0.65 Digit 96.00 mmHg 0.71 Findings RT GABE:1.09 LT GABE:1.21 RT TBI:0.65 LT TBI:0.71 NORMAL PULSES BILATERAL NORMAL WAVEFORMS BILATERAL Conclusion RT GABE:1.09 LT GABE:1.21 RT TBI:0.65 LT TBI:0.71 NORMAL PULSES BILATERAL NORMAL WAVEFORMS BILATERAL Normal appearing resting noninvasive lower extremity arterial study. Electronically signed by : Nacho Bennett MD 03/21/2021 16:49:35
[2021-03-21 14:08] VITALS: BP 119/81; PULSE 75; RESP 18; O2SAT 98
== END 2021-03-21 14:09 | disposition home or self-care (01) ==
LOC: SC.PAINP 12:55
PROVIDERS: PCP Nurse Practitioner Family; Visit Provider Clinical Nurse Specialist Family Health
DX: M51.16 Intervertebral disc disorders with radiculopathy, lumbar region (principal); Z45.1 Encounter for adjustment and management of infusion pump; I10 Essential (primary) hypertension; E87.5 Hyperkalemia; D64.9 Anemia, unspecified; I73.9 Peripheral vascular disease, unspecified; G43.909 Migraine, unspecified, not intractable, without status migrainosus; Z86.73 Personal history of transient ischemic attack (TIA), and cerebral infarction without residual deficits; Z79.899 Other long term (current) drug therapy; Z88.0 Allergy status to penicillin; Z88.6 Allergy status to analgesic agent; Z88.8 Allergy status to other drugs, medicaments and biological substances
CPT/HCPCS: 62370; 93923

== ENCOUNTER → 2021-03-28 09:09 | Outpatient (POV) | payer MEDICARE, OTHER, SELFPAY ==
[2021-03-28 09:33] VITALS: BP 132/88; PULSE 74; RESP 18; O2SAT 98; BMI 21.9
--- NOTE | 2021-03-28 10:10 | HMH.PMPROC ---
- Procedure Date: 03/28/21 Time: 10:10 Anesthesiologist:: Valerie Estes APRN Complications:: None Pre-procedure Diagnosis:: Degenerative disc disease lumbar spine lumbar radiculopathy symptoms low back pain Post-procedure Diagnosis:: Same Indications for Procedure:: Patient is a pleasant 55-year-old white female who presents today for intrathecal pain pump adjustment. She rates her pain today a 4 out of 10. She is currently on morphine 0.75 mg/day. Patient states that she is having some burning around the pump site. There is no sign symptoms of infection. I discussed lidocaine cream. Patient would like a slight increase to help with her back pain. She denies any side effects from medication. Procedure Details:: Informed consent was obtained and the risk and benefits of the procedure were explained to the patient. The patient was taken to the procedure room where noninvasive monitoring was placed including noninvasive blood pressure cuff and pulse oximeter. Patient's pump was interrogated and reprogrammed. The infusion rate was changed to 0.9 mg/day of morphine. The patient tolerated the procedure well. Plan and Disposition:: I will see the patient back at her next intrathecal pain pump refill and reprogram she has been instructed to call the office if she has any issues prior to her next appointment. Dr. Vela has reviewed this note and agrees with this plan of care. This note was dictated using voice recognition software and may contain errors or omissions
== END ==
PROVIDERS: Visit Provider Clinical Nurse Specialist Family Health
DX: M51.16 Intervertebral disc disorders with radiculopathy, lumbar region (principal)
CPT/HCPCS: 99212; G0463

== ENCOUNTER → 2021-04-28 08:20 | Outpatient (POV) | payer MEDICARE, OTHER, SELFPAY ==
[2021-04-28 08:30] VITALS: BP 113/75; PULSE 94; RESP 18; O2SAT 98; BMI 20.1
--- NOTE | 2021-04-28 09:11 | P.CONS_ITS ---
[facility] Pain Management SOAP Note Subjective:: Patient is a pleasant 55-year-old white female who presents today for worsening pain. She rates her pain an 8 out of 10. She does have an intrathecal pain pump that needs adjusted today. She says she fell about 3 weeks ago suffering from left hip pain and left knee pain. She was scheduled for injective therapy, however, canceled the injections. She is refusing injections today. She and I did discuss oral prednisone to take for 5 days. She would like to try this. Patient is also inquiring about taking Ativan with her intrathecal therapy. I have advised her that this is not a good idea with her intrathecal therapy, as it can cause her to have a high risk of oversedation. She rates her pain an 8 out of 10 today. We will adjust her pump today to see if she gets relief. She is currently on morphine at 0.9 mg/day. 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 Patient was taken to the procedure room where noninvasive monitoring was placed including noninvasive blood pressure cuff and pulse oximeter. Patient's pump was interrogated and was reprogrammed to morphine at 1.08 mg/day. The patient tolerated the procedure well with no complications. We will see the patient back in clinic at her next refill appointment. We will order her prednisone 20 mg 1 tablet p.o. twice daily for 5 days. Call the clinic if she has any concerns before next appointment. Dr. Vela has reviewed this note and agrees with this plan of care. This note was dictated using voice recognition software and make contain errors or omissions. [facility] History I have reviewed the patient's past medical history: Yes Medical History: Reports:: Cancer, Hyperlipidemia, Hypertension, Migraine, Valvular Heart Disease (leaky) Denies:: Diabetes Mellitus Type 1, Diabetes Mellitus Type 2, MRSA, Seizures *Have you ever received a pneumonia vaccine?: No *Have you received a flu vaccine this season?: No Other Medical History: Reports: Anemia, Arthritis, Chemotherapy. Denies: Blood Transfusion Reaction Other Surgeries: Yes: No Previous Surgery, Cancer Surgery (ovarian), Cholecystectomy, Colonoscopy, , Hysterectomy-Total Amputation: No Fractures: No - *Social History Smoking Status: Current every day smoker Tobacco Type: cigarettes # Packs/Day (cigarettes): 1 Alcohol Intake: never Alcohol Intake Frequency:: other Substance Use Type: denies use *Occupational Status:: unemployed Housing: house Household Members: spouse *Travel in the last 8 weeks: None Family Hx:: Diabetes, Hyperlipidemia, Hypertension
== END ==
PROVIDERS: Visit Provider Clinical Nurse Specialist Family Health
DX: M51.16 Intervertebral disc disorders with radiculopathy, lumbar region (principal); Z45.1 Encounter for adjustment and management of infusion pump; M25.552 Pain in left hip; M25.562 Pain in left knee
CPT/HCPCS: 62368; 99212; G0463

== ENCOUNTER → 2021-05-04 14:01 | Outpatient (POV) | payer MEDICARE, OTHER, SELFPAY | DX: Z00.00 Encounter for general adult medical examination without abnormal findings (principal) ==

== ENCOUNTER → 2021-05-11 13:35 | Outpatient (POV) | payer MEDICARE, OTHER, SELFPAY | DX: Z00.00 Encounter for general adult medical examination without abnormal findings (principal) ==

== ENCOUNTER → 2021-05-16 12:56 | Outpatient (POV) | payer MEDICARE, OTHER, SELFPAY ==
--- NOTE | 2021-05-16 13:08 | P.CONS_ITS ---
[facility] History Medical History: Reports:: Cancer, Hyperlipidemia, Hypertension, Migraine, Valvular Heart Disease (leaky) Denies:: Diabetes Mellitus Type 1, Diabetes Mellitus Type 2, MRSA, Seizures *Have you ever received a pneumonia vaccine?: No *Have you received a flu vaccine this season?: No Other Medical History: Reports: Anemia, Arthritis, Chemotherapy. Denies: Blood Transfusion Reaction Other Surgeries: Yes: No Previous Surgery, Cancer Surgery (ovarian), Cholecystectomy, Colonoscopy, , Hysterectomy-Total Amputation: No Fractures: No - *Social History Smoking Status: Current every day smoker Tobacco Type: cigarettes # Packs/Day (cigarettes): 1 Alcohol Intake: never Alcohol Intake Frequency:: other Substance Use Type: denies use *Occupational Status:: unemployed Housing: house Household Members: spouse Family Hx:: Diabetes, Hyperlipidemia, Hypertension
--- NOTE | 2021-05-16 13:27 | CA_ITS ---
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 121.2 Axillary 109.2 Brachial 38.9 35.2 34.4 Radial 23.54 27.4 18.5 Ulnar 15.0 22.0 Findings Study suggests mild stenosis of the mid left subclavian artery. The area of stenosis noted on the CT scan is not visible by ultrasound as it is proximal Conclusion Study suggests mild stenosis of the left subclavian artery. The area of stenosis noted on the CT scan is not visible by ultrasound as it is proximal Electronically signed by : Nacho Bennett MD 05/16/2021 16:30:12
[2021-05-16 13:34] VITALS: BP 116/74; PULSE 82; RESP 20; O2SAT 98; BMI 20.5
--- NOTE | 2021-05-16 13:35 | P.PCN_ITS ---
- Procedure Date: 05/16/21 Time: 13:35 Anesthesiologist:: Rehana Alvarenga APRN Complications:: None Pre-procedure Diagnosis:: Degenerative disc disease lumbar spine with lumbar radiculopathy symptoms Post-procedure Diagnosis:: Same Indications for Procedure:: Patient is a 55-year-old white female who presents today for what the patient thought to be an intrathecal pain pump refill and reprogram. Unfortunately the patient's medications not here today. She would like an adjustment today. She is currently on morphine at 1.08 mg/day. She would like an increase. She is having mid back pain and neck pain. She rates her pain a 7 out of 10. We will increase her today to see if she gets relief. Her Dar and drug screens are appropriate. Physical exam General: Alert and oriented x3, no acute distress, pleasant and cooperative, [on room air] Lungs: Respirations even and unlabored, symmetrical chest expansion Eyes: PERRL Musculoskeletal: Flexion and extension of cervical and thoracic spine somewhat guarded secondary to pain, deep tendon reflexes normal, strength in upper and lower extremities [5/5], normal gait noted Neurological: Speech clear, director of flight operations equal, no gross sensory deficit Procedure Details:: Informed consent was obtained and the risk and benefits of the procedure were explained to the patient. Patient was taken to the procedure room where noninvasive monitoring was placed including noninvasive blood pressure cuff and pulse oximeter. Patient's pump was interrogated and was reprogrammed to morphine at 1.2 mg/day. The patient tolerated the procedure well with no complications. Plan and Disposition:: We will see the patient back at her next intrathecal refill this upcoming week. Patient has been instructed to contact the clinic with any concerns before the next appointment. Dr. Vela has reviewed this note and agrees with this plan of care. This note was dictated using voice recognition software and make contain errors or omissions.
== END ==
PROVIDERS: PCP Nurse Practitioner Family; Visit Provider Clinical Nurse Specialist Family Health
DX: M51.16 Intervertebral disc disorders with radiculopathy, lumbar region (principal); I77.1 Stricture of artery; I73.9 Peripheral vascular disease, unspecified; Z45.1 Encounter for adjustment and management of infusion pump
CPT/HCPCS: 62368; 93931

== ENCOUNTER 2021-05-27 08:03 | Day surgery (SDC) | payer MEDICARE, OTHER, SELFPAY ==
[2021-05-27 08:29] VITALS: BP 101/78; BP 122/75; BP 126/83; PULSE 77; PULSE 78; PULSE 80; RESP 18; TEMP 36.7; O2SAT 100; O2SAT 98; BMI 20.7
[2021-05-27 09:00] VITALS: BP 115/66; PULSE 71; RESP 18; O2SAT 98
--- NOTE | 2021-05-27 09:28 | HMH.PMPROC ---
- Procedure Date: 05/27/21 Time: 09:28 Anesthesiologist:: Nancy Santo MD Complications:: None Pre-procedure Diagnosis:: Disc disease of the lumbar spine, lumbar radiculopathy Post-procedure Diagnosis:: Same Indications for Procedure:: She is a very pleasant 55-year-old white female who presents today with chronic low back pain into her legs related to the above diagnosis. She currently has a Flowonix intrathecal pain pump that is functioning appropriately per patient and she presents today for pain pump refill. She reports the current dosing is appropriately managing her pain at this time. For today is for the patient to undergo intrathecal pain pump refill and reprogram. Procedure Details:: Informed consent was obtained and the risks and benefits of the procedure was explained to the patient. The patient was taken to the procedure room. The pump was interrogated. The area over the pump was prepped using ChloraPrep. The pump was accessed with a 22-gauge needle. Approximately [3] mL's of the intrathecal solution was withdrawn and discarded. The pump was then refilled with 20 mL's of intrathecal [morphine 5mg/ml]. The pump was interrogated and the infusion was [no changes were made to the pump]. The patient tolerated the procedure well with no complications. Next refill date is on [07/19/21]. Plan and Disposition:: Noted the procedure well with no complications. We will follow-up with this patient on her before July 19, 2021 for next intrathecal pain pump reprogram and refill.
== END 2021-05-27 09:00 | disposition home or self-care (01) ==
PROVIDERS: PCP Nurse Practitioner Family; Visit Provider Anesthesiology Pain Medicine
DX: M51.16 Intervertebral disc disorders with radiculopathy, lumbar region (principal); Z45.1 Encounter for adjustment and management of infusion pump
CPT/HCPCS: 95991

== ENCOUNTER → 2021-06-23 09:16 | Outpatient (POV) | payer MEDICARE, OTHER, SELFPAY ==
[2021-06-23 09:26] VITALS: BP 101/73; PULSE 76; RESP 20; O2SAT 100; BMI 19.5
--- NOTE | 2021-06-23 10:24 | HMH.PMPROC ---
- Procedure Date: 06/23/21 Time: 10:24 Anesthesiologist:: Rehana Alvarenga APRN Complications:: None Pre-procedure Diagnosis:: Degenerative disc disease lumbar spine with lumbar radiculopathy symptoms Post-procedure Diagnosis:: Same Indications for Procedure:: Patient is a 55-year-old white female who presents today for intrathecal pain pump adjustment. She has been treated for degenerative disc disease lumbar spine with lumbar radiculopathy symptoms. She is complaining of pain in her low back area with radiation into her bilateral hips. Her pain is a 9 out of 10 today. She would like an adjustment. She says the pain is worse with standing and walking does improve with sitting. We will increase her today to see if she gets relief. She is currently on a daily dose of morphine at 1.2 mg/day. She denies any side effects. Patient's Dar #[id number] has been reviewed and is appropriate. Physical exam General: Alert and oriented x3, no acute distress, pleasant and cooperative, [on room air] Lungs: Respirations even and unlabored, symmetrical chest expansion Eyes: PERRL Musculoskeletal: Flexion and extension of [] lumbar [spine] somewhat guarded secondary to pain, strength in upper and lower extremities [5/5], [antalgic gait noted] Neurological: Speech clear, [washing machine mechanic equal], no gross sensory deficit Procedure Details:: Informed consent was obtained and the risk and benefits of the procedure were explained to the patient. Patient was taken to the procedure room where noninvasive monitoring was placed including noninvasive blood pressure cuff and pulse oximeter. Patient's pump was interrogated and was reprogrammed to morphine 1.5 mg/day. The patient tolerated the procedure well with no complications. Plan and Disposition:: We will see the patient back in the clinic at the next intrathecal refill. Patient has been instructed to contact the clinic with any concerns before the next appointment. Dr. Vela has reviewed this note and agrees with this plan of care. This note was dictated using voice recognition software and make contain errors or omissions.
== END ==
PROVIDERS: Visit Provider Clinical Nurse Specialist Family Health
DX: M51.16 Intervertebral disc disorders with radiculopathy, lumbar region (principal); Z45.1 Encounter for adjustment and management of infusion pump
CPT/HCPCS: 62368

== ENCOUNTER 2021-07-11 13:18 | Day surgery (SDC) | payer MEDICARE, OTHER, SELFPAY ==
[2021-07-11 13:21] VITALS: BP 96/70; PULSE 82; RESP 18; TEMP 36.5; O2SAT 98; BMI 19.5
--- NOTE | 2021-07-11 13:30 | HMH.PMPROC ---
- Procedure Date: 07/11/21 Time: 13:41 Anesthesiologist:: Rehana Alvarenga APRN Complications:: None Pre-procedure Diagnosis:: Degenerative disc disease lumbar spine with lumbar radiculopathy symptoms Post-procedure Diagnosis:: same Indications for Procedure:: Patient is a pleasant 55-year-old white female who presents today for intrathecal pain pump refill and reprogram. She has been treated for degenerative disc disease lumbar spine with lumbar radiculopathy symptoms. She rates her pain 3 out of a 10. She is managed with intrathecal therapy of morphine at 1.5 mg/day. He would like an increase in her intrathecal therapy today. She denies any side effects. Her Dar #[id number] has been reviewed and is appropriate. Morphine equivalent is 0. Drug screen is appropriate. We will plan to increase the patient's concentration at her next visit to morphine 10 mg per mill Physical exam General: Alert and oriented x3, no acute distress, pleasant and cooperative, [on room air] Lungs: Respirations even and unlabored, symmetrical chest expansion Eyes: PERRL Musculoskeletal: Flexion and extension of lumbar [spine] somewhat guarded secondary to pain, strength in upper and lower extremities [5/5], [antalgic gait noted] Neurological: Speech clear, [dental laboratory technology teacher equal], no gross sensory deficit Procedure Details:: Informed consent was obtained and the risk and benefits of the procedure were explained to the patient. The patient was taken to the procedure room where noninvasive monitoring was placed including noninvasive blood pressure cuff and pulse oximeter. Patient's pump was interrogated. The area over the pump was cleansed with chlorhexidine as a cleansing solution. In sterile fashion the pump was accessed with a 22-gauge needle. Approximately 5 mls of the pump solution was removed and discarded appropriately. The pump was then refilled with 20 mL's of morphine 5 milligrams per mL. The needle was withdrawn and a bandage was placed over the puncture site. The infusion rate was reprogrammed at morphine at 1.85 mg/day. The patient tolerated well with no complication. Plan and Disposition:: We will plan to increase the patient's concentration to morphine 10 mg/mL at her next refill. We will see the patient back in the clinic at the next intrathecal refill. Patient has been instructed to contact the clinic with any concerns before the next appointment. Dr. Vela has reviewed this note and agrees with this plan of care. This note was dictated using voice recognition software and make contain errors or omissions.
[2021-07-11 13:34] VITALS: BP 125/93; PULSE 87; RESP 18; O2SAT 100
[2021-07-11 13:35] VITALS: BP 125/93; PULSE 75; RESP 18; O2SAT 100
[2021-07-11 13:53] VITALS: BP 107/64; PULSE 77; RESP 20; O2SAT 98
== END 2021-07-11 13:54 | disposition home or self-care (01) ==
LOC: SC.PAINP 13:20
PROVIDERS: PCP Nurse Practitioner Family; Visit Provider Clinical Nurse Specialist Family Health
DX: M51.16 Intervertebral disc disorders with radiculopathy, lumbar region (principal); Z45.1 Encounter for adjustment and management of infusion pump; G43.909 Migraine, unspecified, not intractable, without status migrainosus; E78.5 Hyperlipidemia, unspecified; I10 Essential (primary) hypertension; M19.90 Unspecified osteoarthritis, unspecified site; D64.9 Anemia, unspecified; Z88.6 Allergy status to analgesic agent; Z88.0 Allergy status to penicillin; Z79.899 Other long term (current) drug therapy
CPT/HCPCS: 62370

== ENCOUNTER 2021-08-15 14:08 | Day surgery (SDC) | payer MEDICARE, OTHER, SELFPAY ==
[2021-08-15 14:37] VITALS: BP 119/69; PULSE 82; RESP 18; TEMP 36.6; O2SAT 97; BMI 19.5
[2021-08-15 14:59] VITALS: BP 104/67; PULSE 76; RESP 18; O2SAT 99
[2021-08-15 15:01] VITALS: BP 114/70; PULSE 80; RESP 18; O2SAT 100
--- NOTE | 2021-08-15 15:09 | HMH.PMPROC ---
- Procedure Date: 08/15/21 Time: 15:09 Anesthesiologist:: Rehana Alvarenga APRN Complications:: None Pre-procedure Diagnosis:: Degenerative disc disease lumbar spine with lumbar radiculopathy symptoms Post-procedure Diagnosis:: Same Indications for Procedure:: patient is a 55-year-old white female who presents today for intrathecal pain pump refill and reprogram. She has been treated for degenerative disc disease lumbar spine with lumbar radiculopathy symptoms. [facility] #[id number] has been reviewed and is appropriate. Morphine equivalent is 0. Patient rates her pain a 5 out of 10 and would like an increase today. She is currently on morphine at 1.85 mg/day. Physical exam General: Alert and oriented x3, no acute distress, pleasant and cooperative, [on room air] Lungs: Respirations even and unlabored, symmetrical chest expansion Eyes: PERRL Musculoskeletal: Flexion and extension of lumbar [spine] somewhat guarded secondary to pain, strength in upper and lower extremities [5/5], [antalgic gait noted] Neurological: Speech clear, [analytical research chemist equal], no gross sensory deficit Procedure Details:: Informed consent was obtained and the risk and benefits of the procedure were explained to the patient. The patient was taken to the procedure room where noninvasive monitoring was placed including noninvasive blood pressure cuff and pulse oximeter. Patient's pump was interrogated. The area over the pump was cleansed with chlorhexidine as a cleansing solution. In sterile fashion the pump was accessed with a 22-gauge needle. Approximately 4.5 mls of the pump solution was removed and discarded appropriately. The pump was then refilled with 20 mL's of morphine 5 mg per mill. The needle was withdrawn and a bandage was placed over the puncture site. The infusion rate was reprogrammed at morphine 2.2 mg/day. The patient tolerated well with no complication. Plan and Disposition:: We will plan to increase the patient's concentration of medication to morphine at 10 mg/mL at her next visit. We will see the patient back in the clinic at the next intrathecal refill. Patient has been instructed to contact the clinic with any concerns before the next appointment. Dr. Vela has reviewed this note and agrees with this plan of care. This note was dictated using voice recognition software and make contain errors or omissions.
[2021-08-15 15:12] VITALS: BP 121/71; PULSE 71; RESP 20; O2SAT 96
== END 2021-08-15 15:13 | disposition home or self-care (01) ==
LOC: SC.PAINP 14:10
PROVIDERS: PCP Nurse Practitioner Family; Visit Provider Clinical Nurse Specialist Family Health
DX: M51.16 Intervertebral disc disorders with radiculopathy, lumbar region (principal); Z45.1 Encounter for adjustment and management of infusion pump; G43.909 Migraine, unspecified, not intractable, without status migrainosus; E78.5 Hyperlipidemia, unspecified; I10 Essential (primary) hypertension; M19.90 Unspecified osteoarthritis, unspecified site; J45.909 Unspecified asthma, uncomplicated; K21.9 Gastro-esophageal reflux disease without esophagitis; F32.9 Major depressive disorder, single episode, unspecified; Z72.0 Tobacco use; Z86.73 Personal history of transient ischemic attack (TIA), and cerebral infarction without residual deficits
CPT/HCPCS: 62370

== ENCOUNTER 2021-09-12 13:13 | Day surgery (SDC) | payer MEDICARE, OTHER, SELFPAY ==
--- NOTE | 2021-09-12 13:15 | HMH.PMPROC ---
- Procedure Date: 09/12/21 Time: 13:16 Anesthesiologist:: Rehana Alvarenga APRN Complications:: None Pre-procedure Diagnosis:: Degenerative disc disease lumbar spine with lumbar radiculopathy symptoms Post-procedure Diagnosis:: Same Indications for Procedure:: Patient is a 55-year-old white female who presents today for intrathecal pain pump refill and reprogram. She has been treated for degenerative disc disease lumbar spine with lumbar radiculopathy symptoms. Patient rates her pain a 4 out of 10. She is managed with morphine at 2.2 mg/day and denies any side effects. She does not want any changes today. She feels the pump is working well for her pain at this time. She does have some mid back pain, but does not feel the pump gives her any relief to this area. Patient does take anti-inflammatories as needed for back pain. Physical exam General: Alert and oriented x3, no acute distress, pleasant and cooperative Lungs: Respirations even and unlabored, symmetrical chest expansion Eyes: PERRL Musculoskeletal: Flexion and extension of lumbar [spine] somewhat guarded secondary to pain, [antalgic gait noted] Neurological: Speech clear, no gross sensory deficit Procedure Details:: Informed consent was obtained and the risk and benefits of the procedure were explained to the patient. The patient was taken to the procedure room where noninvasive monitoring was placed including noninvasive blood pressure cuff and pulse oximeter. Patient's pump was interrogated. The area over the pump was cleansed with chlorhexidine as a cleansing solution. In sterile fashion the pump was accessed with a 22-gauge needle. Approximately 5.5 mls of the pump solution was removed and discarded appropriately. The pump was then refilled with 20 mL's of morphine 10 mg per male. The needle was withdrawn and a bandage was placed over the puncture site. The infusion rate was reprogrammed at continued at morphine 2.2 mg/day. The patient tolerated well with no complication. Plan and Disposition:: We will see the patient back in the clinic at the next intrathecal refill. Patient has been instructed to contact the clinic with any concerns before the next appointment. Dr. Vela has reviewed this note and agrees with this plan of care. This note was dictated using voice recognition software and make contain errors or omissions.
[2021-09-12 13:31] VITALS: BP 112/77; PULSE 88; RESP 20; TEMP 36.7; O2SAT 99; BMI 20.1
[2021-09-12 13:46] VITALS: BP 106/75; PULSE 79; RESP 18; O2SAT 99
[2021-09-12 13:48] VITALS: BP 119/77; PULSE 71; RESP 18; O2SAT 100
[2021-09-12 13:58] VITALS: BP 126/91; PULSE 85; RESP 20; O2SAT 100
== END 2021-09-12 13:59 | disposition home or self-care (01) ==
LOC: SC.PAINP 13:14
PROVIDERS: PCP Nurse Practitioner Family; Visit Provider Clinical Nurse Specialist Family Health
DX: M51.16 Intervertebral disc disorders with radiculopathy, lumbar region (principal); Z45.1 Encounter for adjustment and management of infusion pump
CPT/HCPCS: 95991

== ENCOUNTER 2021-11-14 14:55 | Day surgery (SDC) | payer MEDICARE, OTHER, SELFPAY ==
[2021-11-14 15:04] VITALS: BP 102/63; PULSE 84; RESP 18; TEMP 36.8; O2SAT 99; BMI 19.3
[2021-11-14 15:25] VITALS: BP 115/82; PULSE 85; RESP 18; O2SAT 97
[2021-11-14 15:26] VITALS: PULSE 81; RESP 18; O2SAT 97
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
[2021-11-14 15:49] VITALS: BP 117/76; PULSE 72; RESP 20; O2SAT 100
[2021-11-14 17:25] LABS: Amphetamine/Metha Screen,Urine Negative ng/ml (<1000); Barbiturates Screen,Urine Negative ng/ml (<200)
[2021-11-14 17:26] LABS: Benzodiazepines Screen,Urine Negative ng/ml (<200)
[2021-11-14 17:27] LABS: Cannabinoid Screen,Urine Negative ng/ml (<50)
[2021-11-14 17:28] LABS: Cocaine Screen,Urine Negative ng/ml (<300); Methadone Screen,Urine Negative ng/ml (<300)
[2021-11-14 17:29] LABS: Opiate Screen,Urine Positive ng/ml (<300); Phencyclidine Screen,Urine Negative ng/ml (<25)
[2021-12-07 19:20] LABS: Codeine Negative (Cutoff=100); Hydrocodone Negative (Cutoff=100); Hydromorphone Negative (Cutoff=100); Morphine Positive (.); Opiates Positive (.)
== END 2021-11-14 15:50 | disposition home or self-care (01) ==
PROVIDERS: PCP Nurse Practitioner Family; Visit Provider Clinical Nurse Specialist Family Health
DX: M51.16 Intervertebral disc disorders with radiculopathy, lumbar region (principal); Z45.1 Encounter for adjustment and management of infusion pump; G43.909 Migraine, unspecified, not intractable, without status migrainosus; E78.5 Hyperlipidemia, unspecified; I10 Essential (primary) hypertension; M19.90 Unspecified osteoarthritis, unspecified site; D64.9 Anemia, unspecified; Z72.0 Tobacco use; J45.909 Unspecified asthma, uncomplicated; Z88.0 Allergy status to penicillin; Z88.6 Allergy status to analgesic agent
CPT/HCPCS: 62370; 80305; 80361; 80365; G0480

== ENCOUNTER 2021-11-24 12:49 | Emergency (ER) | payer MEDICARE, OTHER, SELFPAY ==
[2021-11-24 13:26] VITALS: BP 112/76; PULSE 109; RESP 18; TEMP 38.2; O2SAT 99; BMI 19.5
--- NOTE | 2021-11-24 14:06 | HMH.EDUTC ---
[facility] [place] Clinical Impression: Flu-like symptoms Disposition: Home, Self-Care Condition on Discharge: Good Instructions: DI for Fever (Symptom) -- Adult, DI for Headache, DI for COVID-19 (Suspected or Confirmed ) Additional Instructions: *Monitor Temp, Over the counter Motrin or Tylenol as directed/as needed Tylenol every 4 hours and Motrin every 6 hours (as long as your family doctor has told you that you can take it) for fever or pain. and straight to ER if unable to lower temp less than 101.0 after medication given *Warm salt water gargles may help to soothe the throat *Throat Lozenges *Warm fluids like tea with honey may help to soothe the throat *Sleep elevated *Humidifier/Vaporizer Continue taking antibiotics as prescribed Zofran as prescribed for nausea Follow up IMMEDIATELY for new or worsening symptoms or no Noticeable improvement over the next 48-72 hours. 911 for difficulty breathing or swallowing You were tested for today for COVID19 your test result should be back in the next 24-48 hours, you may check your results on the [facility] My Health Portal if you have trouble logging on you may call You was given a handout with instructions for Self Quarantine and Self isolation for while you wait on test results and what to do if they are positive If you are positive the Health Dept will be contacting you also Make sure to take your Vitamins Vit. C Vit D and Zinc if you can take them Prescriptions: Benzonatate [Benzonatate 100mg cap] 100 mg PO Q8HP PRN #30 cap PRN Reason: Cough Transmission Status: Received by [id number] Ondansetron [Zofran 4mg ODT] 4 mg PO TIDP PRN #12 tab PRN Reason: Nausea Transmission Status: Received by [id number] Referrals: Surekha Cotto APRN [Primary Care Provider] - As needed Forms: Work/School Release Time of Disposition: 14:29 Medical Decision Making - Dar Inquiry Pt receiving controlled substance: No Dar was queried for this patient: No Vital Signs: 11/24/21 13:26 11/24/21 14:46 Temperature 100.8 F H 99 F Temperature Source Oral Pulse Rate 98 H Pulse Rate [Left] 109 H Respiratory Rate 18 16 Blood Pressure 112/76 Blood Pressure [Right Arm] 112/76 Blood Pressure Mean [Right Arm] 88 02 Sat by Pulse Oximetry 99 - Lab Data Lab results reviewed: Yes: I reviewed the patient's lab results. Orders (Tests/Meds): ED MEDICATIONS Discontinued Medications Generic Name Dose Route Start Last Admin Trade Name Reuben PRN Reason Stop Dose Admin Acetaminophen 650 mg 11/24/21 14:14 11/24/21 14:17 Acetaminophen 325mg Tab PO 11/24/21 14:15 650 mg ONCE ONE Administration Ondansetron HCl 4 mg 11/24/21 14:14 11/24/21 14:18 Ondansetron 4mg Odt SL 11/24/21 14:15 4 mg ONCE ONE Administration ORDERS Category Date Time Status Full Resp Panel w/COVID ([facility]) Routine Lab 11/24/21 14:09 Received Medical Decision Narrative: Patient states that she is still currently taking antibiotics she was given for ear infection Patient states that she has taken tylenol and zofran without reaction or complications [facility] [place] HPI - General Stated complaint: cough,headache,congestion Time Seen by Provider: 11/24/21 14:06 Mode of Arrival: Ambulatory Source of Information: Patient Limitations: No Limitations Description of Symptoms (Recalled from Triage Doc. by RN): pt c/o a ARTHUR, myalgia, cough, congestion, weakness and fever since this am. HEENT Symptoms (Recalled from RN notes): Yes (ARTHUR) Resp Symptoms (Recalled from RN notes): Yes (cough) Skin Symptoms (Recalled from RN notes): No MS Symptoms (Recalled from RN notes): No Functional Status (Recalled from RN notes): wnl - History of Present Illness Provider Complaint: Patient state that this morning it hit her suddenly with body aches, chills, nausea, and headache State that she feels achy all over from her head to her toes States that she was fine and then she started with fe
[2021-11-24 14:18] LABS: Adenovirus,PCR Not Detected (NotDetected); Bordetella Pertussis Not Detected (NotDetected); Chlamydophila Pneumoniae, PCR Not Detected (NotDetected); Coronavirus 229E Not Detected (NotDetected); Coronavirus NL63 Not Detected (NotDetected); Coronavirus OC43 Not Detected (NotDetected); Coronovirus HKU1,PCR Not Detected (NotDetected); Human Metapneumovirus Not Detected (NotDetected); Influenza A, PCR Not Detected (NotDetected); Influenza AH1, 2009 Not Detected (NotDetected); Influenza AH1, PCR Not Detected (NotDetected); Influenza AH3,PCR Not Detected (NotDetected); Influenza B, PCR Not Detected (NotDetected); Mycoplasma Pneumoniae, PCR Not Detected (NotDetected); Parainfluenza 1, PCR Not Detected (NotDetected); Parainfluenza 2, PCR Not Detected (NotDetected); Parainfluenza 3, PCR Not Detected (NotDetected); Parainfluenza 4, PCR Not Detected (NotDetected); Respiratory Syncytial Virus Not Detected (NotDetected); Rhinovirus/Enterovirus Not Detected (NotDetected)
[2021-11-24 14:46] VITALS: BP 112/76; PULSE 98; RESP 16; TEMP 37.2
[2021-11-24 18:44] LABS: Coronavirus 19, PCR Detected (NotDetected)
[2021-11-24 19:11] LABS: UTC Influenza A Antigen Negative (Negative); UTC Influenza B Antigen Negative (Negative)
--- NOTE | 2021-11-25 10:40 | PC.NURSE ---
PATIENT NOTIFIED OF POSITIVE COVID TEST AT THIS TIME
== END 2021-11-24 14:46 | disposition home or self-care (01) ==
PROVIDERS: Emergency Provider Nurse Practitioner; PCP Nurse Practitioner Family
DX: U07.1 COVID-19 (principal); I10 Essential (primary) hypertension; G43.709 Chronic migraine without aura, not intractable, without status migrainosus; F17.210 Nicotine dependence, cigarettes, uncomplicated; Z88.0 Allergy status to penicillin; Z88.5 Allergy status to narcotic agent
CPT/HCPCS: G0463; 87581; 87632; 87798; 87804; 99203; C9803; U0003; U0005

== ENCOUNTER → 2022-01-09 13:47 | Day surgery (SDC) | payer MEDICARE, OTHER, SELFPAY ==
[2022-01-09 14:06] VITALS: BP 105/66; BP 115/77; BP 125/73; PULSE 88; PULSE 97; RESP 20; TEMP 36.6; O2SAT 100; O2SAT 97; O2SAT 99; BMI 19.5
--- NOTE | 2022-01-09 14:13 | HMH.PMPROC ---
- Procedure Date: 01/09/22 Time: 14:13 Anesthesiologist:: Nancy Santo MD Complications:: None Pre-procedure Diagnosis:: Degenerative disc disease of the lumbar spine with lumbar radiculopathy Post-procedure Diagnosis:: Same Indications for Procedure:: Patient is a very pleasant 56-year-old white female who presents today for intrathecal pump refill and reprogram. She has a pump before next system with intrathecal morphine 10 mg/mL at 2.42 mg/day on constant flow and PTC. She states that her pain has slightly worsened since her last pump refill and is requesting a pump adjustment today. The plan for today is for the patient to undergo intrathecal pump refill and reprogram with 20% increase in her constant flow rate. Procedure Details:: Informed consent was obtained and the risks and benefits of the procedure was explained to the patient. The patient was taken to the procedure room. The pump was interrogated. The area over the pump was prepped using ChloraPrep. The pump was accessed with a 22-gauge needle. Approximately 5 mL's of the intrathecal solution was withdrawn and discarded. The pump was then refilled with 20 mL's of intrathecal [ziconotide 25 mcg/mL]. The pump was interrogated and the infusion was [increased to 2.92 mcg per day]. PTC bolusing was unchanged. The patient tolerated the procedure well with no complications. Next refill date is on [February 28, 2022]. Plan and Disposition:: We will follow-up with the patient at or before her next pump refill appointment. We will reassess the patient and make patient pump adjustments at that time if needed. [facility] #[id number] was reviewed and appropriate. ORT was performed today and the patient was deemed low risk.
== END ==
PROVIDERS: PCP Nurse Practitioner Family; Visit Provider Anesthesiology Pain Medicine
DX: M51.16 Intervertebral disc disorders with radiculopathy, lumbar region (principal); Z45.1 Encounter for adjustment and management of infusion pump
CPT/HCPCS: 62370

== ENCOUNTER 2022-02-13 13:03 | Day surgery (SDC) | payer MEDICARE, OTHER, SELFPAY ==
[2022-02-13 13:15] VITALS: BP 116/78; BP 117/77; BP 118/80; PULSE 84; PULSE 85; PULSE 87; RESP 20; TEMP 36.7; O2SAT 100; O2SAT 97; BMI 20.5
--- NOTE | 2022-02-13 13:44 | P.PCN_ITS ---
- Procedure Date: 02/13/22 Time: 13:44 Anesthesiologist:: WAQAR Jamison Complications:: None Pre-procedure Diagnosis:: Degenerative disc disease of the lumbar spine with lumbar radiculopathy symptoms Post-procedure Diagnosis:: Same Indications for Procedure:: Patient is a pleasant 56-year-old female who presents today for intrathecal pain pump [refill] [and reprogram]. The patient is being treated for degenerative disc disease of the lumbar spine with lumbar radiculopathy symptoms. Patient is currently being managed with morphine 10 mg/mL at a rate of 0.9 mg/day with PTC boluses of 0.1 mg up to 4 times a day. Patient denies any side effects from these medications. Patient says that this medication is adequately managing her pain. She is not wanting an adjustment today. Patient rates pain a 5 out of 10. Drug screen is appropriate. [facility] [id number] has been reviewed and is appropriate. Physical exam General: Alert and oriented x3, no acute distress, pleasant and cooperative, [on room air] Lungs: Respirations even and unlabored, symmetrical chest expansion Eyes: PERRL Musculoskeletal: Flexion and extension of lumbar [spine] somewhat guarded secondary to pain, [antalgic gait noted] Neurological: Speech clear, no gross sensory deficit Procedure Details:: Informed consent was obtained and the risk and benefits of the procedure were explained to the patient. The patient was taken to the procedure room where noninvasive monitoring was placed including noninvasive blood pressure cuff and pulse oximeter. Patient's pump was interrogated. The area over the pump was cleansed with chlorhexidine as a cleansing solution. Fluoroscopy was used to access the pump. In sterile fashion the pump was accessed with a 22-gauge need le. Approximately 8 mls of the pump solution was removed and discarded appropriately. The pump was then refilled with 20 mL's of morphine 10 mg/mL. The needle was withdrawn and a bandage was placed over the puncture site. The infusion rate was reprogrammed and continued at morphine 2.9 mg/day. The patient tolerated well with no complication. Plan and Disposition:: We will see the patient back in the clinic at the next intrathecal refill. Patient has been instructed to contact the clinic with any concerns before the next appointment. Dr. Vela has reviewed this note and agrees with this plan of care. This note was dictated using voice recognition software and make contain errors or omissions.
[2022-02-13 13:53] VITALS: BP 112/78; PULSE 72; RESP 20; O2SAT 99
== END 2022-02-13 13:54 | disposition home or self-care (01) ==
LOC: SC.PAINP 13:03
PROVIDERS: PCP Nurse Practitioner Family; Visit Provider Student in an Organized Health Care Education/Training Program
DX: M51.16 Intervertebral disc disorders with radiculopathy, lumbar region (principal); Z45.1 Encounter for adjustment and management of infusion pump; Z72.0 Tobacco use; E78.5 Hyperlipidemia, unspecified; J45.909 Unspecified asthma, uncomplicated; K21.9 Gastro-esophageal reflux disease without esophagitis; F41.9 Anxiety disorder, unspecified; G43.909 Migraine, unspecified, not intractable, without status migrainosus; M19.90 Unspecified osteoarthritis, unspecified site; Z86.73 Personal history of transient ischemic attack (TIA), and cerebral infarction without residual deficits; Z88.0 Allergy status to penicillin; Z88.6 Allergy status to analgesic agent; Z88.8 Allergy status to other drugs, medicaments and biological substances
CPT/HCPCS: 95991

== ENCOUNTER 2022-03-27 13:45 | Day surgery (SDC) | payer MEDICARE, OTHER, SELFPAY ==
[2022-03-27 13:56] VITALS: BP 109/78; PULSE 69; RESP 20; TEMP 36.7; O2SAT 99; BMI 20.3
[2022-03-27 14:06] VITALS: PULSE 73; RESP 18; O2SAT 100
[2022-03-27 14:07] VITALS: BP 128/79; PULSE 77; RESP 18; O2SAT 99
--- NOTE | 2022-03-27 14:15 | HMH.PMPROC ---
- Procedure Date: 03/27/22 Time: 14:15 Anesthesiologist:: Maulik Calloway CRNA Complications:: None Pre-procedure Diagnosis:: Degenerative disc disease lumbar spine. Post-procedure Diagnosis:: Same Indications for Procedure:: Patient is a very pleasant 56-year-old white female that we have been treating with intrathecal pain pump. She currently has morphine sulfate 2 mg/mL at 2.9 mg/day. She is reporting some breakthrough pain in the lumbar spine. She denies radicular symptoms. We will increase her to 3.2 mg/day. Patient denies any weakness in the lower extremities. Procedure Details:: Details of the procedure were explained to the patient. The patient taken to the procedure room placed in the sitting position. The area over the pump was cleaned using chlorhexidine as a cleansing solution. The pump was accessed with ease using a 22-gauge needle. 0.2 mL of fluid was removed and discarded appropriately. The pump was then filled with 20 cc of morphine sulfate 10 mg/mL. The needle was removed. Band-Aid applied. Patient tolerated procedure without difficulty. There were no complications. Plan and Disposition:: Patient was discharged without incident.
[2022-03-27 14:32] VITALS: BP 120/85; PULSE 74; RESP 20; O2SAT 100
[2022-03-27 16:02] LABS: Amphetamine/Metha Screen,Urine Negative ng/ml (<1000); Barbiturates Screen,Urine Negative ng/ml (<200)
[2022-03-27 16:03] LABS: Benzodiazepines Screen,Urine Negative ng/ml (<200)
[2022-03-27 16:04] LABS: Cannabinoid Screen,Urine Negative ng/ml (<50); Cocaine Screen,Urine Negative ng/ml (<300)
[2022-03-27 16:05] LABS: Methadone Screen,Urine Negative ng/ml (<300); Opiate Screen,Urine Positive ng/ml (<300)
[2022-03-27 16:06] LABS: Phencyclidine Screen,Urine Negative ng/ml (<25)
[2022-04-12 15:13] LABS: Codeine Negative (Cutoff=100); Hydrocodone Negative (Cutoff=100); Hydromorphone Negative (Cutoff=100); Morphine Positive (.); Opiates Positive (.)
== END 2022-03-27 14:33 | disposition home or self-care (01) ==
LOC: SC.PAINP 13:46
PROVIDERS: PCP Nurse Practitioner Family; Visit Provider Nurse Anesthetist, Certified Registered
DX: M51.16 Intervertebral disc disorders with radiculopathy, lumbar region (principal); Z45.1 Encounter for adjustment and management of infusion pump; E78.5 Hyperlipidemia, unspecified; I10 Essential (primary) hypertension; G43.909 Migraine, unspecified, not intractable, without status migrainosus; D64.9 Anemia, unspecified; M19.90 Unspecified osteoarthritis, unspecified site; I51.89 Other ill-defined heart diseases; J45.909 Unspecified asthma, uncomplicated; Z86.73 Personal history of transient ischemic attack (TIA), and cerebral infarction without residual deficits; Z88.0 Allergy status to penicillin; Z88.6 Allergy status to analgesic agent
CPT/HCPCS: 80305; 80361; 80365; 95991; G0480

== ENCOUNTER 2022-04-01 15:40 | Emergency (ER) | payer MEDICARE, OTHER, SELFPAY ==
[2022-04-01 15:59] VITALS: BP 103/64; PULSE 84; RESP 18; TEMP 36.8; O2SAT 99; BMI 21.2
--- NOTE | 2022-04-01 16:47 | HMH.EDUTC ---
[facility] [place] Disposition Clinical Impression: Migraine headache Qualifiers: Migraine type: unspecified Status migrainosus presence: without status migrainosus Intractability: not intractable Qualified Code(s): G43.909 - Migraine, unspecified, not intractable, without status migrainosus Disposition: Home, Self-Care Condition on Discharge: Good Additional Instructions: Drink plenty of fluids. Take the medications as directed. Follow up with your regular doctor. GO TO THE ER FOR ANY WORSENING SYMPTOMS Prescriptions: Ondansetron [Zofran 4mg ODT] 4 mg PO Q8HP PRN #20 tab PRN Reason: Nausea Transmission Status: Received by [id number] Referrals: Surekha Cotto APRN [Primary Care Provider] - Forms: Work/School Release Time of Disposition: 17:21 Medical Decision Making - Medical Records Medical records reviewed: No: I reviewed the patient's medical records. - Dar Inquiry Pt receiving controlled substance: No Vital Signs: 04/01/22 15:59 04/01/22 17:22 Temperature 98.2 F 98.2 F Temperature Source Oral Pulse Rate 84 Pulse Rate [Left] 84 Respiratory Rate 18 18 Blood Pressure 103/64 L Blood Pressure [Right Arm] 103/64 L Blood Pressure Mean [Right Arm] 77 02 Sat by Pulse Oximetry 99 Orders (Tests/Meds): ED MEDICATIONS Discontinued Medications Generic Name Dose Route Start Last Admin Trade Name Freq PRN Reason Stop Dose Admin Ketorolac Tromethamine 60 mg 04/01/22 16:45 04/01/22 17:06 Ketorolac 60mg/2ml Vial IM 04/01/22 16:46 60 mg ONCE ONE Administration Methylprednisolone Sodium Succinate 125 mg 04/01/22 16:45 04/01/22 17:05 Methylprednisolone Sod Succ 125mg Vial IM 04/01/22 16:46 125 mg ONCE ONE Administration Promethazine HCl 25 mg 04/01/22 16:45 04/01/22 17:05 Promethazine Hcl 25mg/Ml 1ml Vial IM 04/01/22 16:46 25 mg ONCE ONE Administration Sodium Chloride 25 ml 04/01/22 16:45 04/01/22 17:06 Sodium Chloride 0.9% 25ml Bag IV 04/01/22 16:46 Not Given ONCE ONE [facility] [place] HPI - General Stated complaint: gregorio Time Seen by Provider: 04/01/22 16:00 Mode of Arrival: Ambulatory Source of Information: Patient Limitations: No Limitations Description of Symptoms (Recalled from Triage Doc. by RN): pt c/o migraine. off and on for 2 days. otc meds not working. HEENT Symptoms (Recalled from RN notes): Yes Resp Symptoms (Recalled from RN notes): No Skin Symptoms (Recalled from RN notes): No MS Symptoms (Recalled from RN notes): No Functional Status (Recalled from RN notes): wnl - History of Present Illness Provider Complaint: She is here with complaints of migraine headache. She has a long history of migraines. Usually she can take zofran and nsaids and get it better, but that has not worked this time. She states her head started hurting this morning. In the spring, she gets more severe migraines any way. She thinks that allergies play into it. - Related Data Home Medications Medication Instructions Recorded Confirmed esomeprazole magnesium 40 mg 40 mg PO DAILY #30 cap 11/06/19 03/27/22 capsule,delayed release rizatriptan 10 mg tablet 10 mg PO Q2H PRN 11/06/19 03/27/22 Rimegepant Sulfate [Nurtec Odt] 1 mg PO NEEDED PRN 12/13/20 03/27/22 Atorvastatin Calcium [Lipitor 40mg 40 mg PO HS 03/21/21 03/27/22 Tab] Clopidogrel Bisulfate [Plavix 75mg 75 mg PO DAILY 03/21/21 03/27/22 Tab] Lidocaine 1 each TP DAILY 05/16/21 03/27/22 Gabapentin [Gabapentin 400mg Cap] 400 mg PO QID 06/23/21 03/27/22 Morphine Sulfate [Morphine 10mg/mL 2.7 mg IT CONT 01/09/22 03/27/22 syringe] Previous Rx's Medication Instructions Recorded Benzonatate [Benzonatate 100mg 100 mg PO Q8HP PRN #30 cap 11/24/21 cap] Ondansetron [Zofran 4mg ODT] 4 mg PO TIDP PRN #12 tab 11/24/21 Ondansetron [Zofran 4mg ODT] 4 mg PO Q8HP PRN #20 tab 04/01/22 Allergies Allergy/AdvReac Type Severity Reaction Status Date / Time code
[2022-04-01 17:22] VITALS: BP 103/64; PULSE 84; RESP 18; TEMP 36.8
== END 2022-04-01 17:26 | disposition home or self-care (01) ==
PROVIDERS: Emergency Provider Nurse Practitioner Family; PCP Nurse Practitioner Family
DX: G43.909 Migraine, unspecified, not intractable, without status migrainosus (principal); Z79.899 Other long term (current) drug therapy; Z88.0 Allergy status to penicillin; Z88.6 Allergy status to analgesic agent; Z88.8 Allergy status to other drugs, medicaments and biological substances
CPT/HCPCS: 96372; 99212; G0463

== ENCOUNTER 2022-05-01 13:04 | Day surgery (SDC) | payer MEDICARE, OTHER, SELFPAY ==
[2022-05-01 13:20] VITALS: BP 117/87; PULSE 70; RESP 17; TEMP 36.8; O2SAT 100; BMI 21.4
[2022-05-01 13:28] VITALS: BP 123/69; PULSE 74; RESP 18; O2SAT 97
--- NOTE | 2022-05-01 13:36 | HMH.PMPROC ---
- Procedure Date: 05/01/22 Time: 13:36 Anesthesiologist:: WAQAR Jamison Complications:: None Pre-procedure Diagnosis:: Degenerative disc disease of lumbar spine with lumbar radiculopathy symptoms Post-procedure Diagnosis:: Same Indications for Procedure:: Patient is a pleasant 56-year-old female who presents today for intrathecal pain pump refill and reprogram. The patient is being treated for degenerative disease of lumbar spine with lumbar radiculopathy symptoms. Patient is currently being managed with morphine 10 mg/mL at a rate of 3.2 mg/day. Patient denies any side effects from this medication. Patient wants an adjustment today because she is about to start a new job. Patient rates pain a 7 out of 10. Drug screen is appropriate. Dar [id number] with an active morbid equivalent of 0 has been reviewed and is appropriate. Physical exam General: Alert and oriented x3, no acute distress, pleasant and cooperative Lungs: Respirations even and unlabored, symmetrical chest expansion Eyes: PERRL Musculoskeletal: Flexion and extension of lumbar [spine] somewhat guarded secondary to pain, [antalgic gait noted] Neurological: Speech clear, no gross sensory deficit Procedure Details:: Informed consent was obtained and the risk and benefits of the procedure were explained to the patient. The patient was taken to the procedure room where noninvasive monitoring was placed including noninvasive blood pressure cuff and pulse oximeter. Patient's pump was interrogated. The area over the pump was cleansed with chlorhexidine as a cleansing solution. [Fluoroscopy was used to access the pump]. In sterile fashion the pump was accessed with a 22-gauge needle. Approximately 8 mls of the pump solution was removed and discarded appropriately. The pump was then refilled with 20 mL's of morphine 10 mg/mL. The needle was withdrawn and a bandage was placed over the puncture site. The infusion rate was reprogrammed and increased to morphine 3.5 mg/day. The patient tolerated well with no complication. Plan and Disposition:: We will see the patient back in the clinic at the next intrathecal refill. Patient has been instructed to contact the clinic with any concerns before the next appointment. Dr. Vela has reviewed this note and agrees with this plan of care. This note was dictated using voice recognition software and make contain errors or omissions.
[2022-05-01 13:39] VITALS: BP 117/87; PULSE 70; RESP 18; TEMP 36.8; O2SAT 100
[2022-05-01 14:40] LABS: Amphetamine/Metha Screen,Urine Negative ng/ml (<1000)
[2022-05-01 14:42] LABS: Barbiturates Screen,Urine Negative ng/ml (<200); Benzodiazepines Screen,Urine Negative ng/ml (<200)
[2022-05-01 14:43] LABS: Cannabinoid Screen,Urine Negative ng/ml (<50)
[2022-05-01 14:44] LABS: Cocaine Screen,Urine Negative ng/ml (<300); Methadone Screen,Urine Negative ng/ml (<300)
[2022-05-01 14:45] LABS: Opiate Screen,Urine Positive ng/ml (<300)
[2022-05-01 14:46] LABS: Phencyclidine Screen,Urine Negative ng/ml (<25)
[2022-05-17 09:14] LABS: Codeine Negative (Cutoff=100); Hydrocodone Negative (Cutoff=100); Hydromorphone Negative (Cutoff=100); Morphine Positive (.); Opiates Positive (.)
== END 2022-05-01 13:41 | disposition home or self-care (01) ==
PROVIDERS: PCP Nurse Practitioner Family; Visit Provider Student in an Organized Health Care Education/Training Program
DX: M51.16 Intervertebral disc disorders with radiculopathy, lumbar region (principal)
CPT/HCPCS: 62370; 80305; 80361; 80365; G0480

== ENCOUNTER 2022-06-06 13:59 | Day surgery (SDC) | payer MEDICARE, OTHER, SELFPAY ==
[2022-06-06 14:12] VITALS: BP 112/76; PULSE 83; RESP 18; TEMP 36.9; O2SAT 100; BMI 21.2
[2022-06-06 14:20] VITALS: BP 109/69; PULSE 86; RESP 18; O2SAT 100
--- NOTE | 2022-06-06 14:27 | P.PCN_ITS ---
- Procedure Date: 06/06/22 Time: 14:28 Anesthesiologist:: Maulik Calloway CRNA Complications:: None Pre-procedure Diagnosis:: Degenerative disc disease lumbar spine multilevels. Lumbar radiculopathy symptoms. Thoracic spine pain. Thoracic degenerative disc disease. Post-procedure Diagnosis:: Same Indications for Procedure:: Patient is a very pleasant 56-year-old female that comes to our clinic today for intrathecal pain pump refill. She is currently being managed with morphine sulfate 2 mg/mL at 3.5 mg/day. Patient is doing quite well in terms of her pain in the low back and bilateral leg radicular symptoms. However, patient is complaining of some thoracic pain. She has some disc degenerative condition in the thoracic spine. She has had thoracic epidural steroid injection in the past with significant improvement. She is requesting a repeat thoracic epidural injection. I think this would be appropriate. Her Dar #[id number] has been reviewed and appropriate. Procedure Details:: Details of the procedure were explained to the patient. The patient taken the procedure room placed in the sitting position. The area over the intrathecal p ain pump was cleansed using chlorhexidine as a cleansing solution. The pump was accessed with ease using a 22-gauge needle. 8 mL of fluid was removed and discarded. The pump was then filled with 20 cc of morphine sulfate 2 mg/mL. The needle was removed. Band-Aid applied. Patient tolerated procedure without difficulty. No complications. Plan and Disposition:: Patient will be discharged without incident. Also, we will schedule thoracic epidural steroid injection for her.
[2022-06-06 14:35] VITALS: BP 104/73; PULSE 78; RESP 20; O2SAT 98
== END 2022-06-06 14:46 | disposition home or self-care (01) ==
LOC: SC.PAINP 14:00
PROVIDERS: PCP Nurse Practitioner Family; Visit Provider Nurse Anesthetist, Certified Registered
DX: M51.16 Intervertebral disc disorders with radiculopathy, lumbar region (principal); M51.34 Other intervertebral disc degeneration, thoracic region
CPT/HCPCS: 95991

== ENCOUNTER 2022-07-14 13:45 | Day surgery (SDC) | payer MEDICARE, OTHER, SELFPAY ==
[2022-07-14 13:50] VITALS: BP 116/76; PULSE 75; RESP 20; TEMP 36.7; O2SAT 99; BMI 21.2
[2022-07-14 14:09] VITALS: BP 125/80; PULSE 71; RESP 18; O2SAT 98
--- NOTE | 2022-07-14 14:14 | HMH.PMPROC ---
- Procedure Date: 07/14/22 Time: 14:14 Anesthesiologist:: Maulik Calloway CRNA Complications:: None Pre-procedure Diagnosis:: Degenerative disc disease lumbar spine multilevels. Lumbar radiculopathy symptoms. Thoracic spine pain. Post-procedure Diagnosis:: Same Indications for Procedure:: Very pleasant 56-year-old female that comes our clinic today for intrathecal pain pump refill. Patient requesting increase in rate due to some increased lumbar back pain as well as thoracic pain at times. She is currently being managed with morphine sulfate 2 mg/mL at 3.5 mg/day. Procedure Details:: Details of the procedure were explained to the patient. The patient taken the procedure room placed in sitting position. The area over the pump was cleansed using chlorhexidine as a cleansing solution. The pump was accessed easily using a 25-gauge needle. 6 cc of solution was removed and discarded appropriately. The pump was then filled with morphine sulfate 2 mg/mL. The pump was interrogated and the rate was increased to 4.2 mg/day. Plan and Disposition:: Patient was discharged without incident.
== END 2022-07-14 14:10 | disposition home or self-care (01) ==
LOC: SC.PAINP 13:46
PROVIDERS: PCP Nurse Practitioner Family; Visit Provider Nurse Anesthetist, Certified Registered
DX: M51.16 Intervertebral disc disorders with radiculopathy, lumbar region (principal)
CPT/HCPCS: 62370

== ENCOUNTER 2022-08-08 13:51 | Day surgery (SDC) | payer MEDICARE, OTHER, SELFPAY ==
[2022-08-08 14:02] VITALS: BP 129/74; PULSE 89; RESP 18; TEMP 36.8; O2SAT 100; BMI 21.6
--- NOTE | 2022-08-08 14:07 | EXP.PAIN.PRO ---
Procedure Date: 08/08/22 Time: 14:07 Anesthesiologist:: Maulik Calloway CRNA Complications:: None Pre-procedure Diagnosis:: Degenerative disc disease of lumbar spine multilevels with lumbar radiculopathy symptoms, thoracic spine pain Post-procedure Diagnosis:: Same Indications for Procedure:: Patient is a pleasant 56-year-old female who presents today for intrathecal pain pump refill. We are currently treating the patient for degenerative disc disease of lumbar spine multilevels with lumbar radiculopathy symptoms, thoracic spine pain. Today the patient rates her pain a 8 out of 10. Patient denies any new trauma or injury to the site. She states this is the same pain that she has been experiencing. Patient states she often feels like it is more weather dependent. Patient is currently managed with morphine 10 mg/mL with a daily dose of 4.2 mg/day. Patient does typically have episodes of nausea following pump refills. She is prescribed Zofran from our office to help with the side effects. She is requesting a refill at today's visit. Her Dar is [phone]. It has been reviewed and appropriate. Procedure Details:: Details of the procedure were explained to the patient patient was taken to the procedure room and placed in a sitting position. The area over the pump was cleansed using chlorhexidine as a cleansing solution. The pump was accessed using a 22-gauge needle. From the interrogation of the system, 8.4 mL was expected. Approximately 8.6 mL of pump solution was removed and discarded appropriately. The pump was then refilled with an increased concentration of 20 mL of morphine 20 mg/mL. The needle was withdrawn and a bandage was placed over the puncture site. The infusion rate was continued at morphine 4.2 mg/day. The patient tolerated the procedure well with no complications. Plan and Disposition:: The patient was discharged with no complications. We will see the patient back at her next intrathecal pain pump refill date. The patient has been counseled to contact our office if she has any concerns before the next appointment date. Dr. Vela has reviewed this chart and agrees with this plan of care. This note was dictated with voice recognition and may contain errors or omissions.
[2022-08-08 14:08] VITALS: BP 139/78; PULSE 90; RESP 18; O2SAT 0
[2022-08-08 14:10] VITALS: BP 139/78; PULSE 88; RESP 18; O2SAT 99
[2022-08-08 14:24] VITALS: BP 103/74; PULSE 89; RESP 18; O2SAT 98
== END 2022-08-08 14:25 | disposition home or self-care (01) ==
PROVIDERS: PCP Nurse Practitioner Family; Visit Provider Nurse Anesthetist, Certified Registered
DX: M51.16 Intervertebral disc disorders with radiculopathy, lumbar region (principal)
CPT/HCPCS: 95991

== ENCOUNTER 2022-10-13 12:51 | Day surgery (SDC) | payer MEDICARE, OTHER, SELFPAY ==
[2022-10-13 13:07] VITALS: BP 112/69; PULSE 80; RESP 18; TEMP 37.1; O2SAT 97; BMI 22.1
--- NOTE | 2022-10-13 13:18 | EXP.PAIN.PRO ---
Procedure Date: 10/13/22 Time: 13:20 Anesthesiologist:: Maulik Calloway CRNA Complications:: None Pre-procedure Diagnosis:: Degenerative disc disease lumbar spine multilevels. Lumbar radiculopathy. Post-procedure Diagnosis:: Same. Indications for Procedure:: Patient is a very pleasant 56-year-old female that comes our clinic today for intrathecal pain pump refill. We are currently managing the patient for degenerative disc disease lumbar spine multilevels. Lumbar radiculopathy. Thoracic spine pain. Patient currently being managed with intrathecal morphine sulfate 20 mg/mL at 4.2 mg/day. Patient rates her pain a 6 out of 10. Patient denies any new trauma or injury. Patient denies any change of location or type of pain she experiences. She is requesting a increase at today's visit. General: Alert and oriented x3, no acute distress, pleasant and cooperative Lungs: Respiration even unlabored, symmetrical chest expansion Eyes: PERRL Musculoskeletal: Flexion and extension of lumbar spine somewhat guarded secondary to pain, antalgic gait noted Neurological: Speech clear, no gross sensory deficit Procedure Details:: Informed consent was obtained and the risk and the benefits of the procedure were explained to the patient. The patient was taken to the procedure room where noninvasive monitoring such as a noninvasive blood pressure cuff and pulse oximeter was placed on the patient. The patient's pump was interrogated with 5.7 mL expected. The area over the patient's pump was cleansed with ChloraPrep as a cleansing solution. Using a 22-gauge needle and aseptic technique the pump was accessed with 5.7 mL of solution withdrawn and discarded appropriately. In the pump was filled with 20 mL of solution of morphine 20 mg/mL. The needle was withdrawn and a sterile bandage was placed over the site. The pump was then reinterrogated and increased by 10 % to morphine 4.62 mg per day. Patient tolerated the procedure well with no complications. Plan and Disposition:: We will see the patient back at her next intrathecal pain pump refill date. Patient has been counseled to contact the office with any questions or concerns before the next appointment date. Dr. Vela has read this note and agrees with this plan of care. This note was dictated using voice recognition and may contain errors or omissions.
[2022-10-13 13:42] VITALS: BP 107/61; PULSE 75; RESP 20
== END 2022-10-13 13:43 | disposition home or self-care (01) ==
PROVIDERS: PCP Nurse Practitioner Family; Visit Provider Nurse Anesthetist, Certified Registered
DX: M51.16 Intervertebral disc disorders with radiculopathy, lumbar region (principal)
CPT/HCPCS: 62370

== ENCOUNTER → 2022-10-26 11:10 | Outpatient (POV) | payer MEDICARE, OTHER, SELFPAY ==
[2022-10-26 11:21] VITALS: BP 118/71; PULSE 90; RESP 18; O2SAT 98; BMI 22.3
--- NOTE | 2022-10-26 11:31 | P.PCN_ITS ---
Procedure Date: 10/26/22 Time: 11:31 Anesthesiologist:: Cony Max APRN Complications:: None Pre-procedure Diagnosis:: Degenerative disc disease of lumbar spine multilevels with lumbar radiculopathy symptoms Post-procedure Diagnosis:: Same Indications for Procedure:: Patient is a pleasant 57-year-old female who presents today for intrathecal pain pump reprogramming adjustment. The patient is being treated for degenerative disc disease of lumbar spine multilevels with lumbar radiculopathy symptoms. Patient is currently being managed with morphine 20 mg/mL with a daily dose of 4.62 mg/day. Patient rates pain a 3 out of 10. Patient recently had her pump adjusted on 10/13/2022. Patient states following this adjustment she did have decreased pain however she has had increased constipation. Patient states she has started using a laxative and increased her fiber and it has helped however she is requesting a small decrease of her pain medications at today's visit. Patient denies any other side effects from her medication. Drug screen is appropriate. Dar [id number] has been reviewed and is appropriate. Physical exam General: Alert and oriented x3, no acute distress, pleasant and cooperative Lungs: Respirations even and unlabored, symmetrical chest expansion Eyes: PERRL Musculoskeletal: Flexion and extension of lumbar [spine] somewhat guarded secondary to pain, [antalgic gait noted] Neurological: Speech clear, no gross sensory deficit Procedure Details:: Informed consent was obtained and the risk and benefits of the procedure were explained to the patient. Patient was taken to the procedure room where n oninvasive monitoring was placed including noninvasive blood pressure cuff and pulse oximeter. Patient's pump was interrogated and was reprogrammed to morphine 20 mg/mL with a daily dose of 4.158 mg/day. The patient tolerated the procedure well with no complications. Plan and Disposition:: We will see the patient back in the clinic at the next intrathecal refill. Patient has been instructed to contact the clinic with any concerns before the next appointment. Dr. Vela has reviewed this note and agrees with this plan of care. This note was dictated using voice recognition software and make contain errors or omissions. -- It Is medically necessary for this patient to continue to have their intrathecal pump refilled at regular intervals. This patient had an intrathecal pain pump implanted after meeting criteria of chronic intractable pain for greater than 3 months and failing conservative treatments. Patient has committed and been comp liant to the treatment plan and all planned follow up care. Since implantation of the intrathecal pain pump, the patient has had decreased pain and been more functional. Oral medications have been reduced including intake of oral opioids. Patient continues to do well with intrathecal therapy with decrease in pain symptoms and increase in functional status. Stopping intrathecal medications can lead to life threatening withdrawal, seizures, cardiac arrest, severe pain, and possible . Pumps that are not refilled at regular intervals can be damages and cause and need for replacement. We continually titrate dose and concentration to optimize pain relief and function. We are limited in concentration for certain drugs to safely deliver medications through the pump and stay within the recommendations from the Pol[employer] Consensus Committee Guidelines. Depending on dose and concentration these pumps may need to be refilled sooner than 3 months as we titrate.
== END | disposition home or self-care (01) ==
PROVIDERS: PCP Nurse Practitioner Family; Visit Provider Nurse Practitioner Family
DX: M51.16 Intervertebral disc disorders with radiculopathy, lumbar region (principal); Z72.0 Tobacco use; Z79.899 Other long term (current) drug therapy
CPT/HCPCS: 62368; 99213; G0463

== ENCOUNTER → 2022-12-04 08:55 | Outpatient (POV) | payer MEDICARE, OTHER, SELFPAY ==
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
[2022-12-04 09:24] VITALS: BP 119/84; PULSE 99; RESP 18; O2SAT 97; BMI 23.0
== END ==
PROVIDERS: Visit Provider Nurse Practitioner Family
DX: M51.16 Intervertebral disc disorders with radiculopathy, lumbar region (principal); T85.840A Pain due to nervous system prosthetic devices, implants and grafts, initial encounter; F17.210 Nicotine dependence, cigarettes, uncomplicated; Z79.899 Other long term (current) drug therapy
CPT/HCPCS: 99212; G0463

== ENCOUNTER 2022-12-05 10:55 | Day surgery (SDC) | payer MEDICARE, OTHER, SELFPAY ==
[2022-12-05 11:09] VITALS: BP 120/80; BP 139/78; PULSE 81; PULSE 84; RESP 18; TEMP 36.7; O2SAT 100; O2SAT 97; BMI 23.8
--- NOTE | 2022-12-05 11:15 | EXP.PAIN.PRO ---
Procedure Date: 12/05/22 Time: 11:40 Anesthesiologist:: Maulik Calloway CRNA Complications:: None Pre-procedure Diagnosis:: Myofascial pain right low lumbar. Post-procedure Diagnosis:: Same. Indications for Procedure:: Patient is a pleasant 57-year-old female who comes our clinic today with right low lumbar pain specifically below her intrathecal pain pump. She describes it as constant, sharp, stabbing, dull aching at times. Patient states that this pain came on recently while she was moving. She describes doing heavy lifting, stairs which she is not her regular routine. Her pump is morphine sulfate 20 mg/mL with a daily dose of 4.158 mg/day. Procedure Details:: Details of the procedure explained the patient. The patient taken procedure room placed in the sitting position on the fluoroscopy table. The area over the right low lumbar spine was cleaned using chlorhexidine as a cleansing solution. Using a 25-gauge inch and a half needle 8 cc of a solution containing 0.25% Marcaine +1% lidocaine and 40 mg of Depo-Medrol was injected in a fanning fashion into the right low lumbar paraspinous muscle. Plan and Disposition:: Patient tolerated procedure without difficulty. There are no complications. She was discharged with minimal pain.
[2022-12-05 11:16] VITALS: BP 120/87; PULSE 85; RESP 18; O2SAT 100
== END 2022-12-05 11:16 | disposition home or self-care (01) ==
PROVIDERS: PCP Nurse Practitioner Family; Visit Provider Nurse Anesthetist, Certified Registered
DX: M54.50 Low back pain, unspecified (principal); M79.18 Myalgia, other site; F17.210 Nicotine dependence, cigarettes, uncomplicated
CPT/HCPCS: 20552; J1040

== ENCOUNTER 2022-12-12 13:06 | Day surgery (SDC) | payer MEDICARE, OTHER, SELFPAY ==
[2022-12-12 13:22] VITALS: BP 123/79; PULSE 79; RESP 18; TEMP 37; O2SAT 98; BMI 23.0
[2022-12-12 13:52] VITALS: BP 134/82; PULSE 80; RESP 18; O2SAT 97
[2022-12-12 14:03] VITALS: BP 112/75; PULSE 75; RESP 18; O2SAT 98
--- NOTE | 2022-12-12 14:03 | EXP.PAIN.PRO ---
Procedure Date: 12/12/22 Time: 14:02 Anesthesiologist:: Maulik Calloway CRNA Complications:: None Pre-procedure Diagnosis:: Degenerative disc disease lumbar spine multilevels. Lumbar radiculopathy Post-procedure Diagnosis:: Same. Indications for Procedure:: Patient is a pleasant 57-year-old female who comes to clinic today for intrathecal pain pump refill. She is doing very well on her current medicine. She is currently receiving morphine sulfate 20 mg/mL at 4.158 mg/day. She is doing very well with no complaints of side effects. Procedure Details:: Details of the procedure plan to the patient. Patient taken to procedure room placed in sitting position. The area over the pump was cleansed using chlorhexidine as a cleansing solution. The pump was accessed with ease using 22-gauge inch and half needle. 6.8 mL of solution was removed and discarded appropriately. 6.8 mL of solution was expected. The pump was then filled with 20 cc of morphine sulfate 20 mg/mL. The rate was continued at 4.158 mg/day. Patient tolerated procedure without difficulty. There are no complications Plan and Disposition:: Patient was discharged without incident.
== END 2022-12-12 14:03 | disposition home or self-care (01) ==
PROVIDERS: PCP Nurse Practitioner Family; Visit Provider Nurse Anesthetist, Certified Registered
DX: M51.16 Intervertebral disc disorders with radiculopathy, lumbar region (principal); Z45.1 Encounter for adjustment and management of infusion pump
CPT/HCPCS: 95991

== ENCOUNTER 2023-02-13 12:43 | Day surgery (SDC) | payer MEDICARE, OTHER, SELFPAY ==
[2023-02-13 13:00] VITALS: BP 117/72; PULSE 86; RESP 18; TEMP 36.7; O2SAT 97; BMI 21.2
[2023-02-13 13:08] VITALS: BP 122/76; PULSE 84; RESP 18; O2SAT 97
--- NOTE | 2023-02-13 13:15 | EXP.PAIN.PRO ---
Procedure Date: 02/13/23 Time: 13:10 Anesthesiologist:: Maulik Calloway CRNA Complications:: None Pre-procedure Diagnosis:: Degenerative disc disease lumbar spine multilevels. Lumbar radiculopathy. Post-procedure Diagnosis:: Same Indications for Procedure:: This patient is a very pleasant 57-year-old female comes our clinic today for intrathecal pain pump interrogation and refill. She is currently being managed with morphine sulfate 20 mg/mL at 4.158 mg/day. She is doing very well on her current settings. She does not request any increase or decrease. She does not report any side effects or complications with the intrathecal pain pump management. Procedure Details:: Details of the procedure were explained to the patient. The patient taken to procedure room placed in the sitting position. The area over the pump was cleansed using chlorhexidine as a cleansing solution. The pump was interrogated. The pump was accessed with ease using 22-gauge inch and half needle. 6.4 mL of solution was withdrawn and discarded appropriately. The pump was then filled incrementally with 20 cc containing 20 mg/mL of morphine sulfate. The pump rate will remain the same 4.1580 mg/day. Plan and Disposition:: Patient was discharged without incident.
[2023-02-13 13:17] VITALS: BP 109/69; PULSE 80; RESP 18; O2SAT 97
== END 2023-02-13 13:17 | disposition home or self-care (01) ==
PROVIDERS: PCP Nurse Practitioner Family; Visit Provider Nurse Anesthetist, Certified Registered
DX: Z45.1 Encounter for adjustment and management of infusion pump (principal); M51.16 Intervertebral disc disorders with radiculopathy, lumbar region
CPT/HCPCS: 95991

== ENCOUNTER 2023-04-17 14:32 | Day surgery (SDC) | payer MEDICARE, OTHER, SELFPAY ==
[2023-04-17 14:41] VITALS: BP 129/94; PULSE 93; RESP 18; TEMP 36.4; O2SAT 99; BMI 20.9
[2023-04-17 15:00] VITALS: BP 101/74; PULSE 82; RESP 18; O2SAT 99
--- NOTE | 2023-04-17 15:03 | P.PCN_ITS ---
Procedure Date: 04/17/23 Time: 14:55 Anesthesiologist:: Maulik Calloway CRNA Complications:: None Pre-procedure Diagnosis:: Degenerative disc disease lumbar spine multilevels. Lumbar radiculopathy. Post-procedure Diagnosis:: Same Indications for Procedure:: Patient is a very pleasant 57-year-old female that comes our clinic today for intrathecal pain pump interrogation refill. She is currently managed with morphine sulfate 20 mg/mL at 4.1580 mg/day. Patient doing well on her current settings. Patient works full-time at [employer]. She does not complain of any side effects or complications from the intrathecal pain pump management. Procedure Details:: Details of the procedure explained to the patient. The patient taken to procedure room placed in sitting position. The area of the pump was cleansed using chlorhexidine as a cleansing solution. The pump was interrogated. The pump was accessed with ease using 22-gauge inch and a half needle. 7.5 mL of solution was withdrawn discarded appropriately. The pump was then filled with 20 cc of morphine sulfate 20 mg/mL. The intrathecal pain pump rate will remain at 4.1580 mg/day. Patient tolerated procedure without difficulty. No complications Plan and Disposition:: Patient was discharged without incident.
== END 2023-04-17 15:00 | disposition home or self-care (01) ==
LOC: SC.PAINP 14:33
PROVIDERS: PCP Nurse Practitioner Family; Visit Provider Nurse Anesthetist, Certified Registered
DX: Z45.1 Encounter for adjustment and management of infusion pump (principal); M51.16 Intervertebral disc disorders with radiculopathy, lumbar region
CPT/HCPCS: 95991

== ENCOUNTER → 2023-05-31 13:14 | Outpatient (POV) | payer MEDICARE, OTHER, SELFPAY ==
--- NOTE | 2023-05-31 13:46 | EXP.PAIN.PRO ---
Procedure Date: 05/31/23 Time: 13:46 Anesthesiologist:: Cony Max APRN Complications:: None Pre-procedure Diagnosis:: Degenerative disc disease of lumbar spine with lumbar radiculopathy symptoms Post-procedure Diagnosis:: Same Indications for Procedure:: Patient is a pleasant 57-year-old female who presents today for follow-up. We are currently treating the patient for degenerative disc disease of lumbar spine with lumbar radiculopathy symptoms. Today she rates her pain a 3 out of 10. She denies any new trauma or injury or any change to location or type of pain she experiences. She does state that she feels like since changing the concentration of her intrathecal medication she has had increased drowsiness. Patient states her pain is much more manageable however she will be sitting randomly during the day and will be falling asleep. She is currently managed with morphine 20 mg/mL with a daily dose of 4.158 mg/day. Patient denies any other side effects. Her Dar is [id number]. Its been reviewed and appropriate. Physical Exam: General: Alert and oriented x3, no acute distress, pleasant and cooperative Lungs: Respirations even and unlabored, symmetrical chest expansion Eyes: PERRL Musculoskeletal: Flexion and extension of lumbar [spine] somewhat guarded secondary to pain, [antalgic gait noted] Neurological: Speech clear, no gross sensory deficit Procedure Details:: Informed consent was obtained and the risk and benefits of the procedure were explained to the patient. Patient was taken to the procedure room where noninvasive monitoring was placed including noninvasive blood pressure cuff and pulse oximeter. Patient's pump was interrogated and was reprogrammed to morphine 3.75 mg/day. The patient tolerated the procedure well with no complications. Plan and Disposition:: Patient tolerated her intrathecal decrease with no complications and was discharged neurologically intact. Patient is scheduled for her next intrathecal refill on June 19. I have counseled the patient at this visit we will review over if she had any additional improvement of her increased drowsiness and fatigue. During this visit we may look at doing an additional decrease and reprogram of her intrathecal pump medication. Patient has been instructed to contact the clinic with any concerns before the next appointment. Dr. Vela has reviewed this note and agrees with this plan of care. This note was dictated using voice recognition software and make contain errors or omissions. -- It Is medically necessary for this patient to continue to have their intrathecal pump refilled at regular intervals. This patient had an intrathecal pain pump implanted after meeting criteria of chronic intractable pain for greater than 3 months and failing conservative treatments. Patient has committed and been compliant to the treatment plan and all planned follow up care. Since implantation of the intrathecal pain pump, the patient has had decreased pain and been more functional. Oral medications have been reduced including intake of oral opioids. Patient continues to do well with intrathecal therapy with decrease in pain symptoms and increase in functional status. Stopping intrathecal medications can lead to life threatening withdrawal, seizures, cardiac arrest, severe pain, and possible . Pumps that are not refilled at regular intervals can be damages and cause and need for replacement. We continually titrate dose and concentration to optimize pain relief and function. We are limited in concentration for certain drugs to safely deliver medications through the pump and stay within the recommendations from the Polyanalgesic Consensus Committee Guidelines. Depending on dose and concentration these pumps may need to be refilled sooner than 3 months as we titrate.
[2023-05-31 14:57] VITALS: BP 123/80; PULSE 86; RESP 18; O2SAT 97; BMI 21.2
== END | disposition home or self-care (01) ==
PROVIDERS: PCP Nurse Practitioner Family; Visit Provider Nurse Practitioner Family
DX: M51.16 Intervertebral disc disorders with radiculopathy, lumbar region (principal)
CPT/HCPCS: 62368; 99213; G0463

== ENCOUNTER 2023-06-19 13:59 | Day surgery (SDC) | payer MEDICARE, OTHER, SELFPAY ==
[2023-06-19 14:04] VITALS: BP 125/76; PULSE 75; RESP 18; TEMP 36.6; O2SAT 99; BMI 22.1
[2023-06-19 14:11] VITALS: BP 136/78; PULSE 76; RESP 20; O2SAT 96
--- NOTE | 2023-06-19 14:20 | EXP.PAIN.PRO ---
Procedure Date: 06/19/23 Time: 14:15 Anesthesiologist:: Maulik Calloway CRNA Complications:: None
--- NOTE | 2023-06-19 14:21 | EXP.PAIN.PRO ---
Procedure Date: 06/19/23 Time: 14:15 Anesthesiologist:: Maulik Calloway CRNA Complications:: None Pre-procedure Diagnosis:: Degenerative disc disease lumbar spine multilevels. Lumbar radiculopathy Post-procedure Diagnosis:: Same. Indications for Procedure:: Patient is a very pleasant 57-year-old female that comes our clinic today for intrathecal pain pump interrogation and refill. She is currently being managed with morphine sulfate 20 mg/mL at 3.75 mg/day. She reports doing very well with her current settings. She does not report any side effects or complications regarding the intrathecal pain pump management. Procedure Details:: Details of the procedure explained to the patient. The patient taken to procedure room placed in the sitting position. The area over the pump was cleansed using chlorhexidine as a cleansing solution. The pump was interrogated. The pump was accessed with ease using a 22-gauge inch and half needle. 7 mL of solution was withdrawn and discarded appropriately. At this time the pump was filled incrementally with 20 cc of a solution containing morphine sulfate 20 mg/mL. Patient tolerated procedure without difficulty. There are no complications. Plan and Disposition:: Patient was discharged without incident.
[2023-06-19 14:23] VITALS: BP 113/71; PULSE 71; RESP 18; O2SAT 97
[2023-06-19 19:18] LABS: Benzodiazepines Screen,Urine Negative ng/ml (<200)
[2023-06-19 19:19] LABS: Amphetamine/Metha Screen,Urine Negative ng/ml (<1000)
[2023-06-19 19:20] LABS: Barbiturates Screen,Urine Negative ng/ml (<200); Cannabinoid Screen,Urine Negative ng/ml (<50)
[2023-06-19 19:21] LABS: Cocaine Screen,Urine Negative ng/ml (<300)
[2023-06-19 19:22] LABS: Methadone Screen,Urine Negative ng/ml (<300); Opiate Screen,Urine Positive ng/ml (<300)
[2023-06-19 19:23] LABS: Phencyclidine Screen,Urine Negative ng/ml (<25)
[2023-06-26 12:06] LABS: Codeine Negative (Cutoff=100); Hydrocodone Negative (Cutoff=100); Hydromorphone Negative (Cutoff=100); Morphine Positive (.); Opiates Positive (.)
== END 2023-06-19 14:23 | disposition home or self-care (01) ==
PROVIDERS: Anesthesiology; PCP Nurse Practitioner Family; Visit Provider Nurse Anesthetist, Certified Registered
DX: M51.16 Intervertebral disc disorders with radiculopathy, lumbar region (principal); M96.1 Postlaminectomy syndrome, not elsewhere classified
CPT/HCPCS: 80305; 80361; 80365; 95991; G0480

== ENCOUNTER → 2023-07-11 15:09 | Outpatient (POV) | payer MEDICARE, OTHER, SELFPAY ==
[2023-07-11 15:39] VITALS: BP 113/79; PULSE 81; RESP 18; O2SAT 98; BMI 21.4
--- NOTE | 2023-07-11 16:06 | EXP.PAIN.PRO ---
Procedure Date: 07/11/23 Time: 15:30 Anesthesiologist:: Cony Max APRN Complications:: None Pre-procedure Diagnosis:: Degenerative disc disease of lumbar spine with lumbar radiculopathy symptoms Post-procedure Diagnosis:: Same Indications for Procedure:: Patient is a pleasant 57-year-old female who presents today for follow-up. We are currently treating the patient for degenerative disc disease of lumbar spine with lumbar radiculopathy symptoms. Today she rates her pain a 1 out of 10. Patient states that she has not had any trauma or injury since her last visit however she is experiencing more drowsiness. She states she feels like she cannot drive and it may be related to her pump medication dosage. She is currently managed with morphine 20 mg/mL with a daily dose of 3.75 mg/day. Patient denies any other side effects such as swelling, confusion, urinary retention. Her Dar is [id number]. Its been reviewed and appropriate. Physical Exam: General: Alert and oriented x3, no acute distress, pleasant and cooperative Lungs: Respirations even and unlabored, symmetrical chest expansion Eyes: PERRL Musculoskeletal: Flexion and extension of lumbar [spine] somewhat guarded secondary to pain, [antalgic gait noted] Neurological: Speech clear, no gross sensory deficit Procedure Details:: Informed consent was obtained and the risk and benefits of the procedure were explained to the patient. Patient was taken to the procedure room where noninvasive monitoring was placed including noninvasive blood pressure cuff and pulse oximeter. Patient's pump was interrogated and was reprogrammed to morphine 3.38 mg/day. The patient tolerated the procedure well with no complications. Plan and Disposition:: Patient tolerated her intrathecal decrease with no complications and was discharged neurologically intact. Patient will return to clinic in 2 weeks for reevaluation of symptoms and plan of care. Patient has been instructed to contact the clinic with any concerns before the next appointment. Dr. Vela has reviewed this note and agrees with this plan of care. This note was dictated using voice recognition software and make contain errors or omissions. -- It Is medically necessary for this patient to continue to have their intrathecal pump refilled at regular intervals. This patient had an intrathecal pain pump implanted after meeting criteria of chronic intractable pain for greater than 3 months and failing conservative treatments. Patient has committed and been compliant to the treatment plan and all planned follow up care. Since implantation of the intrathecal pain pump, the patient has had decreased pain and been more functional. Oral medications have been reduced including intake of oral opioids. Patient continues to do well with intrathecal therapy with decrease in pain symptoms and increase in functional status. Stopping intrathecal medications can lead to life threatening withdrawal, seizures, cardiac arrest, severe pain, and possible . Pumps that are not refilled at regular intervals can be damages and cause and need for replacement. We continually titrate dose and concentration to optimize pain relief and function. We are limited in concentration for certain drugs to safely deliver medications through the pump and stay within the recommendations from the Polyanalgesic Consensus Committee Guidelines. Depending on dose and concentration these pumps may need to be refilled sooner than 3 months as we titrate.
== END | disposition home or self-care (01) ==
PROVIDERS: PCP Nurse Practitioner Family; Visit Provider Nurse Practitioner Family
DX: M51.16 Intervertebral disc disorders with radiculopathy, lumbar region (principal); Z97.8 Presence of other specified devices
CPT/HCPCS: 62368; 99213; G0463

== ENCOUNTER 2023-08-28 14:00 | Day surgery (SDC) | payer MEDICARE, OTHER, SELFPAY ==
[2023-08-28 14:08] VITALS: BP 112/71; PULSE 84; RESP 16; TEMP 37.1; O2SAT 98; BMI 22.6
[2023-08-28 14:11] VITALS: BP 121/76; PULSE 77; RESP 18; O2SAT 97
[2023-08-28 14:13] VITALS: BP 121/76; PULSE 77; RESP 18; O2SAT 97
--- NOTE | 2023-08-28 14:18 | EXP.PAIN.PRO ---
Procedure Date: 08/28/23 Time: 14:05 Anesthesiologist:: Maulik Calloway CRNA Complications:: None Pre-procedure Diagnosis:: Degenerative disc lumbar spine multilevels. Lumbar radiculopathy. Post-procedure Diagnosis:: Same. Indications for Procedure:: Patient is a very pleasant 57-year-old female comes our clinic today for intrathecal pain pump interrogation refill. Patient is currently being managed with morphine sulfate 20 mg/mL with a daily dose of 3.38 mg/day. Patient had a recent decrease in her intrathecal pain pump rate on 07/11/2023. She is requesting additional decrease in the pump rate secondary to sleepiness during the day. We will decrease her rate by 20% today. Patient reports mild pain in the low back as well as upper back and shoulders at times. She rates her pain 2/10. Procedure Details:: Details of the procedure explained to the patient. The patient taken procedure and placed in sitting position fluoroscopy table. The air over the pump is cleansed using chlorhexidine as a cleansing solution. The pump was interrogated. The pump was accessed with ease using a 22-gauge inch and half needle. 7 mL of solution was withdrawn and discarded appropriately. The pump was then filled with 20 cc of solution containing morphine sulfate 20 mg/mL. The rate will be decreased by 20%. Patient's new rate is 2.7040 mg/day. Patient tolerated procedure without difficulty. There are no complications. Plan and Disposition:: Patient was discharged without incident.
[2023-08-28 14:24] VITALS: BP 105/68; PULSE 76; RESP 18; O2SAT 98
== END 2023-08-28 14:24 | disposition home or self-care (01) ==
PROVIDERS: PCP Nurse Practitioner Family; Visit Provider Nurse Anesthetist, Certified Registered
DX: M51.16 Intervertebral disc disorders with radiculopathy, lumbar region (principal); Z97.8 Presence of other specified devices
CPT/HCPCS: 95991

== ENCOUNTER → 2023-11-06 09:12 | Outpatient (CLI) | payer MEDICARE, OTHER, SELFPAY ==
[2023-11-06 17:29] LABS: Basophils % 0.5 % (0.1-2.0); Eosinophils # 0.1 K/mm3 (0.0-0.4); Eosinophils % 2.1 % (0.1-12.0); Hematocrit 39.4 % (37.0-47.0); Hemoglobin 13.6 g/dL (12.2-16.2); Lymphocytes # 2.6 K/mm3 (0.7-4.5); Lymphocytes % 47.3 % (10-50); Mean Corpuscular HGB Conc 34.5 g/dL (31.8-35.4); Mean Corpuscular Hemoglobin 33.1 pg (27.0-31.2); Mean Corpuscular Volume 95.7 fl (81-99); Mean Platelet Volume 8.9 fl (7.4-10.4); Monocytes # 0.3 K/mm3 (0.1-1.0); Monocytes % 4.6 % (1.7-9.3); Neutrophils # 2.5 K/mm3 (1.8-7.8); Neutrophils % 45.5 % (37.0-80.0); Platelet Count 209 K/mm3 (142-424); Red Blood Count 4.11 M/mm3 (4.20-5.40); Red Cell Distribution Width 13.4 % (11.5-17.5); White Blood Count 5.5 K/mm3 (4.8-10.8)
[2023-11-06 19:37] LABS: Hemoglobin A1C 5.4 % (4.0-6.0)
[2023-11-06 19:51] LABS: Alanine Aminotransferase 16 U/L (12-78); Albumin Level 4.1 g/dl (3.5-5.0); Albumin/Globulin Ratio 1.5 (1.1-1.8); Alkaline Phosphatase 72 U/L (38-126); Anion Gap 9.9 mEq/L (5-15); Aspartate Amino Transferase 29 U/L (14-36); Bilirubin,Total 0.3 mg/dl (0.2-1.3); Blood Urea Nitrogen 8 mg/dl (7-17); Calcium 8.4 mg/dl (8.4-10.2); Carbon Dioxide 27 mmol/L (22.0-30.0); Chloride 103 mmol/L (98-107); Chol/HDL Ratio 5.2 (1-3.5); Cholesterol 186 mg/dl (140-200); Estimated Glomerular Filt Rate 87 ml/min (>60); GFR (African American) 105 ML/MIN (>60); Globulin 2.7 g/dL (1.3-3.2); Glucose 98 mg/dl (74-100); HDL Cholesterol 36 mg/dl (40-60); Potassium 3.9 mmoL/L (3.5-5.1); Sodium 136 mmol/L (136-145); Total Protein,Serum 6.8 g/dl (6.3-8.2); Triglycerides 123 mg/dl (30-150); VLDL Cholesterol 25 mg/dL (0-40)
[2023-11-06 20:04] LABS: Direct LDL Cholesterol 120.92 mg/dL (100-129)
[2023-11-06 20:22] LABS: Thyroid Stimulating Hormone 2.08 uIU/mL (0.465-4.68)
[2023-11-06 20:41] LABS: Vitamin B12 421 pg/mL (239-931)
[2023-11-06 22:32] LABS: Ferritin 11.5 ng/ml (11.1-264)
== END ==
PROVIDERS: PCP Nurse Practitioner Family; Visit Provider Nurse Practitioner Family
DX: R53.83 Other fatigue (principal); R73.09 Other abnormal glucose; G47.00 Insomnia, unspecified; R51.9 Headache, unspecified; Z86.39 Personal history of other endocrine, nutritional and metabolic disease; G45.8 Other transient cerebral ischemic attacks and related syndromes
CPT/HCPCS: 80053; 80061; 82607; 82728; 83036; 84443; 85025

== ENCOUNTER → 2023-11-12 10:30 | Outpatient (CLI) | payer MEDICARE, OTHER, SELFPAY ==
--- NOTE | 2023-11-12 10:33 | XR_ITS ---
FINAL REPORT CLINICAL HISTORY: foot pain x1 week COMPARISON: None FINDINGS: RIGHT FOOT 3 views of the right foot were obtained. There is no acute fracture or dislocation. Visualized joint spaces are normally aligned. Soft tissues are unremarkable. A small plantar calcaneal spur is present. IMPRESSION: No acute bony abnormality. A small plantar calcaneal spur is present. Reviewed, Interpreted and Dictated by Ministerio Echeverria MD Transcribed by Lisa Cintron Authenticated and [facility]
== END ==
PROVIDERS: PCP Nurse Practitioner Family; Visit Provider Podiatrist
DX: M79.671 Pain in right foot (principal)
CPT/HCPCS: 73630

== ENCOUNTER 2023-12-04 13:14 | Day surgery (SDC) | payer MEDICARE, OTHER, SELFPAY ==
[2023-12-04 13:19] VITALS: BP 104/61; PULSE 85; RESP 16; O2SAT 95; BMI 22.1
[2023-12-04 13:40] VITALS: BP 111/68; PULSE 84; RESP 18; O2SAT 96
--- NOTE | 2023-12-04 13:50 | P.PCN_ITS ---
Procedure Date: 12/04/23 Time: 13:40 Anesthesiologist:: Maulik Calloway CRNA Complications:: None Pre-procedure Diagnosis:: Degenerative disc lumbar spine multilevels. Lumbar radiculopathy. Post-procedure Diagnosis:: Same. Indications for Procedure:: Patient is a very pleasant 58-year-old female comes our clinic today for intrathecal pain pump irrigation refill. Patient currently being managed with morphine sulfate 20 mg/mL rate of 2.7040 mg/day. Patient reporting some generalized fatigue throughout the day. Patient's intrathecal pain pump rate was turned down several weeks ago. Patient requesting a decrease in her intrathecal pain pump rate today. Patient not reporting any pain. Otherwise, patient not reporting any complications. Procedure Details:: Details of the procedure explained to the patient. The patient taken the [facility] room patient sitting position. They over the pumps cleansed using chlorhexidine's cleansing solution. The pump was interrogated. The pump was accessed with ease using a 22-gauge inch and half needle. 6 mL of solution was withdrawn discarded appropriately. The pump was then filled with 20 cc of a solution containing morphine sulfate 20 mg/mL. The rate was decreased by 20%. Patient's new rate is 2.1600 mg/day. Patient tolerated procedure without difficulty. There are no complications. Plan and Disposition:: Patient was patient was discharged without incident
== END 2023-12-04 13:40 | disposition home or self-care (01) ==
LOC: SC.PAINP 13:15
PROVIDERS: PCP Nurse Practitioner Family; Visit Provider Nurse Anesthetist, Certified Registered
DX: M51.16 Intervertebral disc disorders with radiculopathy, lumbar region (principal); Z97.8 Presence of other specified devices; Z45.1 Encounter for adjustment and management of infusion pump
CPT/HCPCS: 95991

== ENCOUNTER 2024-03-25 13:30 | Day surgery (SDC) | payer MEDICARE, OTHER, SELFPAY ==
[2024-03-25 13:45] VITALS: BP 112/74; PULSE 91; RESP 18; O2SAT 99; BMI 22.6
[2024-03-25 13:52] VITALS: BP 123/76; PULSE 96; RESP 18; O2SAT 97
[2024-03-25 13:56] VITALS: BP 123/76; PULSE 96; RESP 18; O2SAT 97
--- NOTE | 2024-03-25 14:05 | EXP.PAIN.PRO ---
Procedure Date: 03/25/24 Time: 13:48 Anesthesiologist:: Maulik Calloway CRNA Complications:: None Pre-procedure Diagnosis:: Degenerative disc lumbar spine multilevels. Lumbar radiculopathy. Post-procedure Diagnosis:: Same. Indications for Procedure:: Patient is a very pleasant 58-year-old female comes our clinic today for intrathecal pain pump interrogation and refill. She is currently being managed with morphine sulfate 20 mg/mL at a rate of 2.1600 mg/day. Patient is requesting decrease in the intrathecal pain pump rate. Patient is reporting continuing with some drowsiness throughout the day. For the same reason we turned her intrathecal pain pump down 20% on 12/04/2023. She reports having some improvement in the area of drowsiness. Procedure Details:: Details of the procedure explained to the patient. The patient taken procedure room placed in the sitting position. They over the pumps cleansed using chlorhexidine's cleansing solution. The pump was interrogated. The pump was accessed with ease using a 22-gauge inch and half needle. 7 mL of solution was withdrawn discarded appropriate. The pump was then filled with 20 cc of a solution containing morphine sulfate 20 mg/mL. The rate was decreased by 20%. The patient's new rate will be 1.7-8 0 mg/day. Patient tolerated procedure without difficulty. There are no complications. Plan and Disposition:: Patient was discharged without incident.
[2024-03-25 14:15] VITALS: BP 111/75; PULSE 85; RESP 18; O2SAT 98
[2024-03-25 21:19] LABS: Amphetamine/Metha Screen,Urine Negative ng/ml (<1000); Barbiturates Screen,Urine Negative ng/ml (<200)
[2024-03-25 21:20] LABS: Benzodiazepines Screen,Urine Negative ng/ml (<200)
[2024-03-25 21:21] LABS: Cannabinoid Screen,Urine Negative ng/ml (<50); Cocaine Screen,Urine Negative ng/ml (<300)
[2024-03-25 21:22] LABS: Methadone Screen,Urine Negative ng/ml (<300)
[2024-03-25 21:23] LABS: Opiate Screen,Urine Positive ng/ml (<300); Phencyclidine Screen,Urine Negative ng/ml (<25)
== END 2024-03-25 14:08 | disposition home or self-care (01) ==
PROVIDERS: Anesthesiology; PCP Nurse Practitioner Family; Visit Provider Nurse Anesthetist, Certified Registered
DX: M51.16 Intervertebral disc disorders with radiculopathy, lumbar region (principal); Z97.8 Presence of other specified devices; Z45.1 Encounter for adjustment and management of infusion pump
CPT/HCPCS: 62370; 80307; 80361; 80365; G0480

== ENCOUNTER 2024-07-22 13:24 | Day surgery (SDC) | payer MEDICARE, OTHER, SELFPAY ==
[2024-07-22 14:04] VITALS: BP 114/75; PULSE 97; RESP 16; TEMP 36.8; O2SAT 98; BMI 21.2
[2024-07-22 14:17] VITALS: BP 149/77; PULSE 85; RESP 18; O2SAT 96
[2024-07-22 14:18] VITALS: BP 149/77; PULSE 85; RESP 18; O2SAT 97
[2024-07-22 14:24] VITALS: BP 120/79; PULSE 87; RESP 16; O2SAT 98
--- NOTE | 2024-07-22 14:44 | EXP.PAIN.PRO ---
Procedure Date: 07/22/24 Time: 14:30 Anesthesiologist:: Maulik Calloway CRNA Complications:: None Pre-procedure Diagnosis:: Degenerative disc lumbar spine multilevels. Lumbar radiculopathy. Post-procedure Diagnosis:: Same. Indications for Procedure:: Patient is a very pleasant 58-year-old female who comes our clinic today for intrathecal pain pump interrogation and refill. She is currently being managed with morphine sulfate 20 mg/mL at a rate of 1.7280 mg/day. She is doing very well with her current settings. She does not report porting any side effects or complications. She is not requesting any changes. Patient is awake alert [place] x 3. In no acute distress. Flexion-extension lumbar spine somewhat guarded secondary to pain. Deep tendon reflexes upper and lower extremities normal. Motor strength upper and lower extremities normal. There is no gross sensory deficit. Gait is normal. Procedure Details:: Details of the procedure explained to the patient. The patient taken the procedure room placed in sitting position. The area of the pump was cleaned using chlorhexidine as a cleansing solution. The pump was interrogated. The pump was accessed with ease using a 22-gauge inch and half needle. 8 mL of solution was withdrawn discarded appropriate. The pump was then filled with 20 cc of solution containing morphine sulfate 20 mg/mL. The pump rate will remain the same at 1.7-8 0 mg/day. Patient tolerated procedure without difficulty. There were no complications. Plan and Disposition:: Patient was discharged without incident.
[2024-07-29 09:44] LABS: Miscellaneous Test SCANNED IMAGE
== END 2024-07-22 14:26 | disposition home or self-care (01) ==
PROVIDERS: Anesthesiology; PCP Nurse Practitioner Family; Visit Provider Nurse Anesthetist, Certified Registered
DX: Z79.891 Long term (current) use of opiate analgesic; M51.16 Intervertebral disc disorders with radiculopathy, lumbar region
CPT/HCPCS: 80356; 80361; 95991; G0480

== ENCOUNTER 2024-09-16 11:02 | Outpatient (CLI) | payer MEDICARE, OTHER, SELFPAY | END 2024-09-16 23:59 | disposition home or self-care (01) | LOC: LAB.DROPOF 09-17 11:02 | PROVIDERS: PCP Student in an Organized Health Care Education/Training Program; Visit Provider Student in an Organized Health Care Education/Training Program | DX: R39.9 Unspecified symptoms and signs involving the genitourinary system (principal) | CPT/HCPCS: 87086 ==

== ENCOUNTER 2025-06-09 16:26 | Outpatient (CLI) | payer MEDICARE, OTHER, SELFPAY ==
[2025-06-09 17:51] LABS: Hematocrit 40.3 % (37.0-47.0); Hemoglobin 13.4 g/dL (12.2-16.2); Immature Granulocytes % 0.2 %; Mean Corpuscular HGB Conc 33.3 g/dL (31.8-35.4); Mean Corpuscular Hemoglobin 32.3 pg (27.0-31.2); Mean Corpuscular Volume 97.1 fl (81-99); Nucleated Red Blood Cells % 0 %; Platelet Count 220 K/mm3 (142-424); Red Blood Count 4.15 M/mm3 (4.20-5.40); Red Cell Distribution Width-SD 48.7 fL; White Blood Count 6.5 K/mm3 (4.8-10.8)
[2025-06-09 18:37] LABS: Hemoglobin A1C 6.4 % (4.0-6.0)
[2025-06-09 19:14] LABS: Albumin Level 4.2 g/dl (3.5-5.0); Chloride 101 mmol/L (98-107); Sodium 139 mmol/L (136-145)
[2025-06-09 19:15] LABS: Potassium 4.2 mmoL/L (3.5-5.1)
[2025-06-09 19:17] LABS: Alanine Aminotransferase 11 U/L (12-78); Albumin/Globulin Ratio 1.6 (1.1-1.8); Alkaline Phosphatase 73 U/L (38-126); Anion Gap 12.2 mEq/L (5-15); Aspartate Amino Transferase 25 U/L (14-36); Bilirubin,Total 0.3 mg/dl (0.2-1.3); Blood Urea Nitrogen 19 mg/dl (7-17); Carbon Dioxide 30 mmol/L (22.0-30.0); Creatinine,Serum 0.50 mg/dl (0.52-1.04); Estimated Glomerular Filt Rate 127 ml/min (>60); GFR (African American) 154 ML/MIN (>60); Globulin 2.6 g/dL (1.3-3.2); Total Protein,Serum 6.8 g/dl (6.3-8.2)
[2025-06-09 19:18] LABS: Calcium 8.6 mg/dl (8.4-10.2); Glucose 64 mg/dl (74-100); Magnesium 2.0 mg/dl (1.6-2.3)
[2025-06-09 19:34] LABS: 25-OH Vitamin D, Total 42.0 ng/mL (30-100)
[2025-06-09 19:46] LABS: Thyroid Stimulating Hormone 1.22 uIU/mL (0.465-4.68)
[2025-06-09 19:51] LABS: Ferritin 16.5 ng/ml (11.1-264)
[2025-06-09 20:04] LABS: Vitamin B12 237 pg/mL (239-931)
--- OUTSIDE RECORDS SUMMARY | 2025-06-10 09:01 | XMS_ITS | Continuity of Care Document ---
Author Organization [place] [facility] Office New Address [address] [place] [address] Care Team Providers Care Millroom Supervisor Name Role Phone KRISHNA GARCIA Primary Care Provider Unavailabl e KRISHNA GARCIA Referring Provider Unavailable Assessment Encounter Date Assessment Date Assessment LastModified by Organization Details LastModified Time 04/28/2025 04/28/2025 This is a [facility] 59-year-old female who presents today for intrathecal pain pump refill. Today patient is rating her pain an 8 out of 10, this is increased from her last visit with a pain level of 7 out of 10. Patient denies changes to location or intensity of her pain. We are currently managing her with intrathecal morphine 20 mg/mL at a daily rate of 1.73 mg/day. Patient denies any side effects associate with this medication, she is requesting an increase in her daily dosage. [facility] #[id number], drug screen from 01/16/2025 was reviewed and is appropriate. Patient did undergo updated drug screen in office today. A screen and reflex to confirmation was ordered as random testing at random intervals based on medical necessity guidance criteria. Urine drug screen is needed to verify patient's compliance with the pain contract, this will be ordered due to treatments of chronic pain with a potentially abused medication. Plan: I refilled patient's intrathecal pain pump device, patient tolerated this procedure well without complications. Patient was discharged neurovascularly intact with an antalgic gait. Patient had 5/5 motor strength in the lower extremities, no gross sensory deficits appreciated. I did increase her intrathecal morphine 20 mg/mL to a daily rate of 1.9 mg/day, we will see patient back in office on or before her low alarm date of September 24, 2025 for pain pump refill. Of note patient is scheduled for intrathecal pain pump change out, we may not see her until her postoperative appointment. Patient was instructed to contact us if she having further questions or concerns. Dr. Vela has reviewed this chart and agrees with this plan of care. This note was dictated with voice recognition software and may contain errors or omission [email or web address] Not available 04/28/2025 15:17:12 Plan of Treatment Reminders Order Date Submit Date Provider Last Modified By Organization Details Last Modified Time Details Appointments PUMP REFILL 2024 01:30P M WAQAR CLAUDIO Not available Not available Not available Lab None recorded. Referral None recorded. Procedures intrathec al pump refill (PROC) 2024 025 [email or web address] Not available 04/29/2025 14:22:12 intrathec al pump adjustmen t (PROC) 2024 025 [email or web address] Not available 04/29/2025 14:22:25 Surgeries None recorded. Imaging None recorded. Medication Orders None recorded. Patient TargetsNo targets recorded. Patient InstructionsNo instructions recorded. Reason for Referral None Reported. Problems Name Problem SNOMED Code Status Onset Date Resolution Date Notes Provider Name and Address Organization Details Recorded Time Long-term drug therapy Active 2024 WAQAR CLAUDIO [address], [address], [place] [facility] 13:52:51 Degeneration of lumbar intervertebral disc 58803399 Active 2024 WAQAR CLAUDIO [address], [address], [place] [facility] 5 13:52:51 Continuous opioid dependence 885798785 Active 2024 WAQAR CLAUDIO [address], [address], [place] [facility] 13:52:53 Lumbar radiculopathy 270159274 Active 2024 WAQAR CLAUDIO [address] [facility],[address], [address], [place] [facility] 5 13:52:54 Problem Notes None recorded. Procedures Surgical History Date Name Laterality Status Provider Name and Address Organization Details Recorded Time 04/28/20 25 Pump Refill MERLYN completed RITCHIE DAYAN, PA [address], [address] [place] [address], [place] [facility] 04/28/2025 15:15:43 01/16/20 25 Pump Refill completed RITCHIE DAYAN, PA [address], [address] [place] [address], [place] [facility] 01/16/2025 13:50:07 10/22/20 24 Pump Refill completed RITCHIE DAYAN, PA [address], [address] [place] [address], [place] [facility] 10/22/2024 09:45:43 hysterectomy completed CAMI CERVANTES [place] [facility] 10/22/2024 08:19:46 section completed CAMI CERVANTES [place] [facility] 10/22/2024 08:47:35 cholecystectomy completed CAMI CERVANTES [place] [facility] 10/22/2024 08:47:41 Imaging Results None recorded. Procedure Notes None recorded. Medical Equipment None Reported. Allergies Allergen ID Allergen Name Allergen Category Reaction Reaction Severity Criticality Documentation Date Start Date Code Code System Note Provider Name and Address Organization Details Recorded Time 61 codeine medicatio n Not available Not available Not available 10/22/2024 2670 RxNorm CAMI CERVANTES null, [place] [facility] 4 08:16:09 6123 amitripty line medicatio n Not available Not available Not available 10/22/2024 704 RxNorm CAMI CERVANTES null, [place] [facility] 4 08:16:14 6124 Product containin g penicilli n (product) medicatio n Not available Not available Not available 10/22/2024 23382 8001 SNOMED CAMI CERVANTES null, [place] [facility] 4 08:16:22 Medications Name Sig Start Date Stop Date Status Note LastModified by Organization Details LastModified Time MORPHINE 20 dispense 20 ml to infuse through intrathec al pump 2024 active Not Available Not Available Not Avai lable MORPHINE 20 dispense 20 ml to infuse through intrathec al pump 2024 active Not Available Not Available Not Avai lable MORPHINE 20 dispense 20 ml to infuse through intrathec al pump 2023 active Not Available Not Available Not Avai lable fluconazole 100 mg tablet TAKE 1 TABLET BY MOUTH ONCE DAILY FOR 14 DAYS 10/22 completed Not Available Not Available Not Available buspirone 5 mg tablet TAKE 1 TABLET BY MOUTH TWICE DAILY 10/22 completed Not Available Not Available Not Available venlafaxine ER 75 mg capsule,ext ended release 24 hr TAKE 1 CAPSULE BY MOUTH ONCE DAILY DO NOT CRUSH OR CHEW active Not Available Not Available No t Available doxycycline hyclate 100 mg capsule TAKE 1 CAPSULE BY MOUTH TWICE DAILY FOR 10 DAYS 10/22 completed Not Available Not Available Not Available clindamycin HCl 300 mg capsule TAKE 1 CAPSULE BY MOUTH EVERY 8 HOURS FOR 10 DAYS 10/22 completed Not Available Not Available Not Available fluconazole 150 mg tablet TAKE 1 TABLET BY MOUTH ONCE DAILY FOR 5 DAYS 10/22 completed Not Available Not Available Not Available clarithromy brie 500 mg tablet TAKE 1 TABLET BY MOUTH TWICE DAILY FOR 14 DAYS active Not Available Not Available No t Available prednisone 20 mg tablet TAKE 1 TABLET BY MOUTH TWICE DAILY FOR 7 DAYS 10/22 completed Not Available Not Available Not Available azelastine 137 mcg (0.1 %) nasal spray USE 2 SPRAY(S) IN EACH NOSTRIL TWICE DAILY 10/22 completed Not Available Not Available Not Available methylpredn isolone 4 mg tablets in a dose pack TAKE BY MOUTH DIRECTED ON INSIDE OF PACKAGE 10/22 completed Not Available Not Available Not Available albuterol sulfate HFA 90 mcg/actuati on aerosol inhaler INHALE 2 PUFFS BY MOUTH EVERY 4 TO 6 HOURS NEEDED FOR SHORTNESS OF BREATH FOR WHEEZING active Not Available Not Available No t Available ondansetron 4 mg disintegrat ing tablet DISSOLVE 1 TABLET IN MOUTH EVERY 8 HOURS NEEDED FOR NAUSEA FOR 20 DAYS active Not Available Not Available No t Available ciprofloxac in 0.3 %-dexametha sone 0.1 % ear drops,suspe nsion INSTILL 4 DROPS IN EARS TWICE DAILY FOR 7 DAYS 10/22 completed Not Available Not Available Not Available tizanidine 4 mg capsule TAKE 2 CAPSULES BY MOUTH EVERY 8 HOURS NEEDED FOR MUSCLE SPASTICIT Y active Not Available Not Available No t Available Vitals Date Recorded Body height Heart rate Body mass index (BMI) Body weight Oxygen saturation Oxygen saturation in Arterial blood by Pulse oximetry Systolic And Diastolic Provider Name and Address Organization Details Last Updated DateTime 5 160.02 cm 88 /min 23.2 kg/m2 49395.6 g 96 % 96 % 128/78 mm[Hg] February Lamas [place] [facility] 5 14:04:48 Social History Question Answer Notes LastModified by [employer] Details LastModified Time Tobacco Smoking Status Current Every Day Smoker CAMI CERVANTES [place] [facility] 10/22/2024 08:20:16 In The 14 Days Before Symptom Onset, Have You Had Close Contact With A Laboratory-confirm ed COVID-19 While That Case Was Ill? No [email or web address] Information n ot available 10/22/2024 In The 14 Days Before Symptom Onset, Have You Had Close Contact With A Person Who Is Under Investigation For COVID-19 While That Person Was Ill? No [email or web address] Information not available 10/22/2024 Have You Been To An Area Known To Be High Risk For COVID-19? No [email or web address] Information not available 10/22/2024 How Much Tobacco Do You Smoke? 1 PPD [email or web address] Information not available 10/22/2024 Sex: Female Functional Status Question Answer Note LastModified by [employer] Details LastModified Time Do you use any illicit or recreational drugs? No [email or web address] Information not available 10/22/2024 Do you or have you ever used any other forms of tobacco or nicotine? No [email or web address] Information not available 10/22/2024 What is your level of alcohol consumption? None [email or web address] Information not available 10/22/2024 Mental Status None recorded. Family History Nothing Reported. Medical History Condition Response Coronary Artery Disease N Gout N Hernia N Head Trauma/Injury N Thyroid Problems N Depression N COPD N Anemia N Heart Attack (MD) N Ulcers N Diabetes N Anxiety Disorder Y Bleeding Disorder N Arthritis N Tuberculosis N AIDS/HIV N Acid Reflux (GERD) N Cancer N Stroke N Asthma N Substance Abuse N Back Injury N High Cholesterol N Hepatitis N Liver Disease N Heart Disease N Headaches N Fibromyalgia N Hypertension N Osteoporosis N Kidney Disease N Gynecological HistoryNo gynecological history recorded. Obstetrics History GPAL:G 0 P 0 0 0 0 Past Encounters Encounter ID Performer Location Encounter Start Date Encounter Closed Date Diagnosis/Indication Diagnosis SNOMED-CT Code Diagnosis ICD10 Code Diagnosis Note [id number] WAQAR CLAUDIO [place] [id number] [facility] [address] [place] [address] 04/28/2025 14:01:48 04/28/2025 14:47:53 Lumbar radiculopathy 712243486 M54.16 Continuous opioid dependence 804895262 F11.20 Degenerati on of lumbar intervertebral disc 69434350 M51.369 Long-term current use of drug therapy 323839833 Z79.899 Health Concerns Section Related Observation LastModified by Organization Detai ls LastModified Time None Recorded Concern Status LastModified by Organization Details LastModified Time None Recorded Payers Encounter Date Sequence Insurance Name Policy Number Policy Douglas Covered Member ID Douglas Member ID Guarantor Name 04/28/2025 1 [place] Fina Lorenzana [id number] Fina Lorenzana 04/28/2025 2 () Fina Lorenzana [id number] Fina Lorenzana Notes Date Note Type Note Provider Name and Address Organization Details Recorded Time 04/28/2025 text/html Back PainReporte d bypatient.Location: lumbar;pain radiating to the legs Quality:sharp;stiff ness;aching Severity:pain level 8/10;moderate (5-7) Duration:chronic Context:atraumatic; prior back problems Alleviating Factors:rest Aggravating Factors:movement/po sitioning; twisting; flexing back; extending back; lifting; housework; walking; standing; sitting Associated Symptoms:no fever; no weak limbs; no tingling; no incontinence; no shortness of breath; no unintentional weight loss; no chills; no night sweats; no gait instability; no bowel/bladder symptoms; no recent increase in stress;numbness of the legs/feet Prior Imaging:MRI; X-ray WAQAR CLAUDIO [address] [facility] [address], [address], [place] [facility] 04/28/2025 15:17:29 OBGyn Episode No OBEpisode recorded.
--- OUTSIDE RECORDS SUMMARY | 2025-06-10 09:01 | XMS_ITS | Clinical Summary ---
Author Organization [facility] Address [address] [place] [address] Care Team Providers Care Manager Diversity Name Role Phone Sae Lai MD Primary Care Provider [phone] Allergies Active Allergy Reactions Criticality Noted Date Comments Amitriptyline Hives,Rash,Itching,U nkno wn - Patient states they do not know rxn details Medium 12/25/2014 Sleeps for days at a time (but arousable) Sleeps for days at a time (but arousable) Codeine Unknown - Patient st ates they do not know rxn details,Anaphylaxis,Shor tness of breath High 09/01/2010 Penicillins Rash Low 09/01/2010 Medications gabapentin (Neurontin) 400 MG capsule TAKE 1 CAPSULE 5 times a day 2 in am; 2 in afternoon; 1 at night 3 Active esomeprazole (NexIUM) [address] capsule Take 40 mg by mouth 1 (one) time each day. Active clopidogrel (Plavix) 75 MG tablet Active ondansetron (Zofran) 4 MG tablet Take 1 tablet (4 mg) by mouth every 8 (eight) hours if needed for nausea or vomiting. Active SUMAtriptan (Imitrex) 50 MG tablet TAKE 1 TABLET BY MOUTH NEEDED AT ONSET OF MIGRAINE, MAY TAKE 2ND TABLET 4 HOURS LATER 3 Active clobetasol (Temovate) 0.05 % cream Apply topically twice weekly. 30 g 3 Active Additional Information Patient not taking.Reported on 03/28/2024 venlafaxine XR (Effexor-XR) 75 MG 24 hr capsule Take 1 capsule by mouth daily. Do not crush or chew. 30 capsule 3 Active Active Problems Problem Noted Date Diagnosed Date Tobacco use disorder 03/14/2023 Malignant neoplasm of ovary 03/22/2022 Cancer Staging:Clinical stage from 04/01/2010:FIGO Stage IC(T1c, N0, M0) - Unsigned Encounters Date Type Department Care Team Description 03/24/2025 Telephone [facility] [address] [place] [address] Gavi Avendano Distress Screen Follow-up from Last 3 Months Family History Medical History Relation Name Comments Breast cancer Mother FH: breast can cer Uterine cancer Other 1 FH: uterine c ancer Cancer Other 2 Coronary artery disease Other 3 Cervical cancer Sister Family histo ry of cervical cancer Relation Name Status Comments Mother Other 1 Other 2 Other 3 Sister Social History Tobacco Use Types Packs/Day Years Used Date Smoking Tobacco: Every Day Cigarettes 1.5 13.5 Started: 2011 Smokeless Tobacco: Never Tobacco Cessation:Ready to Q uit: Not Asked; Counseling Given: Not Answered Alcohol Use Standard Drinks/Week Comments No 0 (1 standard drink = 0.6 oz pure alcohol) Alcoholic Drinks/day: Never Drank Alcohol PHQ-2 Answer Date Recorded Patient Health Questionnaire-2 Score 0 03/28/2024 PHQ-2A Answer Date Recorded Patient Health Questionnaire-2 Score 0 03/14/2023 Comments No Sex and Gender Information Value Date Recorded Sex Assigned at Not on file Legal Sex Female 8:44 PM EDT Gender Identity Not on file Sexual Orientation Not on file Last Filed Vital Signs Vital Sign Reading Time Taken Comments Blood Pressure 113/78 03/28/2024 2:15 PM EDT Pulse 91 03/28/2024 2:15 PM EDT Temperature 37 C (98.6 F) 03/28/2024 2:15 PM EDT Respiratory Rate 12 03/28/2024 2:15 PM EDT Oxygen Saturation 96% 03/28/2024 2:15 PM EDT Inhaled Oxygen Concentration - - Weight 58.6 kg (129 lb 3 oz) 03/28/2024 2:15 PM EDT Height 160 cm (5' 3 ) 03/28/2024 2:15 PM EDT Body Mass Index 22.88 03/28/2024 2:15 PM EDT Plan of Treatment Upcoming Encounters Date Type Department Care Team (Late st Contact Info) Description 07/06/2025 2:00 PM EDT Office Visit [facility] [address] [place] [address] Yandy Zamora, COMMISSARY SUPERINTENDENT [address] Gutierrez [address] [place] [address] Health Maintenance Due Date Last Done Comments [facility]-HIV Screening 1967 [facility]-Hepatitis C Screening 1967 [facility]-Medicare Annual Wellness (AWV) 1967 [facility]-Infant/Child/Adol SDOH Screenings 1967 [facility]- SDOH Screenings 1985 [facility]-Adult SDOH Screenings 1985 [facility]-DTaP,Tdap,and Td Vaccine s (1 - Tdap) 1986 [facility]-Hepatitis B Vaccines (1 of 3 - 19+ 3-dose series) 1986 [facility]-Pneumococcal Vaccine: 50 + Years (1 of 2 - PCV) 1986 [facility]-Zoster Vaccines (1 of 2) 1986 CT Colonography 2012 Colonoscopy 2012 FIT-DNA 2012 FIT 2012 FOBT 2012 Sigmoidoscopy 2012 [facility]-Colorectal Cancer Screening 2012 [facility]-Breast Cancer Screening 2017 [id number] Vaccine (3 - Moderna risk series) 05/11/2021 04/13/2021, 03/16/2021 [facility]-Depression Screening 03/28/2025 03/28/2024 [facility]-Influenza Vaccine (#1) 2025 [facility]-Lung Cancer Screening Discontinued 05/18/2020 [facility]-Cervical Cancer Screening Discontinued [facility]-HPV/Cotest Discontinued 03/14/2023, 05/08/2014, 09/01/2010 [facility]-Pap Smear Discontinued 03/14/2023, 05/08/2014, 09/01/2010 HPV Vaccines Aged Out No longer eligi ble based on patient's age to complete this topic [facility]-HIB Vaccines Aged Out No longer e ligible based on patient's age to complete this topic [facility]-Hepatitis A Vaccines Aged Out No longer eligible based on patient's age to complete this topic [facility]-IPV Vaccines Aged Out No longer e ligible based on patient's age to complete this topic [facility]-Rotavirus Vaccines Aged Out No lo nger eligible based on patient's age to complete this topic Procedures Procedure Name Priority Date/Time Associated Diagnosis Comments PAP TEST - CYTOLOGY Routine 03/14/2023 1:36 PM EDT 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 CT CHEST W IV CONTRAST Routine 05/18/2020 1:31 PM EDT from Last 3 Months or Most Recently Relevant to Health Maintenance Results * Pap Test (03/14/2023 1:36 PM EDT) Case Report Cytology Case: [id number] Authorizing Provider: Yandy Crews APRN Collected: 03/14/2023 1336 Ordering Location: [facility] Gynecology Received: 03/15/2023 0951 First Screen: Renay Anguiano Rescreen: Louise Blancas Specimen: ThinPrep Pap Test, Liquid-Based Vaginal, VAGINAL 03/20/2023 1:38 PM EDT [facility] Interpretation NEGATIVE FOR INTRAEPITHELIAL LESION OR MALIGNANCY 03/20/2023 1:38 PM EDT [facility] at 1338 EDT Specimen Adequacy Satisfactory for evaluation. Slide scanned and imaged by [employer] with manual review of all selected rowe. 03/20/2023 1:38 PM EDT [facility] Cervical cytology is a screening test primarily for squamous cancers and precursors and has associated false negative and positive results. New technologies such as liquid based sampling may decrease but will not eliminate all false negative results. Regular screening and follow-up of unexplained clinical signs and symptoms are recommended to minimize false negative results. Please see the ASCCP website (www.asccp.org)fo r followup recommendations. If HPV testing was requested, correlation with the results is suggested (please call Microbiology at [phone] for results). 03/20/2023 1:38 PM EDT [facility] Menstrual Status Not Applicable 02/25 1:38 PM EDT [facility] History of Hysterectomy Hysterectomy without remaining cervix 03/20/2023 1:38 PM EDT [facility] Contraceptive History Not Applicable 03/20/2023 1:38 PM EDT [facility] Screening Type Previous or Suspected Abnormality 03/20/2023 1:38 PM EDT [facility] HPV Testing Requested? 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 [ICD-10-CM] 03/20/2023 1:38 PM EDT [facility] Swab Vaginal structure / Unknown Non-blood Collection / Unknown 03/14/2023 1:36 PM EDT 03/15/2023 9:51 AM EDT us Yandy Zamora COMMISS[employer] SUPERINTENDENT LAB CYTOLOGY ORDERABLES Hazel l Result [facility] [address] [place] [address] * CT Chest w IV Contrast (05/18/2020 1:31 PM EDT) Anatomical Region Laterality Modality Chest Computed Tomogra phy Narrative 05/18/2020 3:01 PM EDT REQUESTING PHYSICIAN: CONY DE LA CRUZ REASON FOR EXAMINATION/PROCEDURE: ovarian cancer EXAMINATION / PROCEDURE: CT Chest W IVCON May 18 2020:31; CT Abdomen & Pelvis W IVCON May 18 2020:; CLINICAL INDICATION: Ovarian c ancer. TECHNIQUE: Multiple axial CT images were obtained from thoracic inlet through pubic symphysis following administration of IV contrast, Omnipaque 300, 100 mL. Reformatted images of the abdomen and pelvis in the coronal and sagittal pl anes were generated from the axial data set to facilitate diagnostic accuracy. Total DLP (Dose-Length Product): 410 mGy*cm. Please note: The reported value represents the total of one or more individual components during the CT acquisition on this date and at this time, and as such, the same value may appear in more than one CT report depending on the interpreting/reporting physicians. COMPARISON: CT chest, abdomen and pelvis October 26, 2015. T-spine radiograph January 01, 2017, November 09, 2016. FINDINGS: Chest: Lymph Nodes and Mediastinum: Enlarged right upper paratracheal, bilateral lower paratracheal, subcarinal and right hilar lymph node, unchanged in size and number, measuring up to 14 mm in short axis. No me diastinal mass lesions. No suspicious thyroid findings. Cardiovascular: Dilated right atrium and ventricle. Multivessel calcified coronary atherosclerosis. Heart is normal in caliber and course. Main pulmonary artery is normal in caliber. Lungs and Pleura: Central airways are patent. Stable 10 mm basal medial right lower lobe solid partially calcified pulmonary nodule (series 3 image 71). No new pulmonary nodule. Musculoskeletal and Body Wall: No clearly aggressive bone lesions . Chronic T10 superior endplate compression deformity with 75% vertebral height loss. Abdomen/Pelvis: Solid Abdominal Organs: Normal liver, spleen, adrenal glands, pancreas. Prior cholecystectomy. Subcentimeter hypoenhancing renal lesions to o small to characterize. GI Tract/Mesentery/Peritoneum: Nondilated small and large bowel. Prior appendectomy.. Pelvic Viscera: Prior total abdominal hysterectomy and bilateral salpingo-oophorectomy. No suspicious mass within the pelvis. Mi ldly distended urinary bladder. Lymph Nodes/Vasculature: Postoperative CT size criteria. Moderate calcified atherosclerosis within the abdominal aorta and bilateral common iliac arteries. Free Fluid: No ascites. Musculoskeletal and Bod y Wall: Degenerative changes of the spine. IMPRESSION: Chest: No evidence of disease progression. Stable partially calcified right lower lobe pulmonary nodule. Stable mediastinal and right hilar lymphadenopathy, which are essentially un changed since October 2015. Abdomen/Pelvis: No evidence of disease progression. Prior total abdominal hysterectomy and bilateral salpingo-oophorectomy. CRITICAL RESULT: No. COMMUNICATION: Per this written report. By electronic ally signing this report, I, the attending physician, attest that I have personally reviewed the images/data for the above examination(s) and agree with the final edited report. Verified by: MOHSEN THOMPSON M.D. on May 18 2020 2:59P Trans cribed by: OZZIE on May 18 2020 2:00P Dictated by: PAULINO GRIGGS M.D. on May 18 2020 2:00P Procedure Note Mohsen Thompson Prabhakar - 03/22/2021 REQUESTING PHYSICIAN: CONY DE LA CRUZ REASON FOR EXAMINATION/PROCEDURE: ovarian cancer EXAMINATION / PROCEDURE: CT Chest W IVCON May 18 2020 - 13:31; CT Abdomen & Pelvis W IVCON May 18 2020 - 13:31; CLINICAL INDICATION: Ovarian c ancer. TECHNIQUE: Multiple axial CT images were obtained from thoracic inlet through pubic symphysis following administration of IV contrast, Omnipaque 300, 100 mL. Reformatted images of the abdomen and pelvis in the coronal and sagittal pl anes were generated from the axial data set to facilitate diagnostic accuracy. Total DLP (Dose-Length Product): 410 mGy*cm. Please note: The reported value represents the total of one or more individual components during the CT acquisition on this date and at this time, and as such, the same value may appear in more than one CT report depending on the interpreting/reporting physicians. COMPARISON: CT chest, abdomen and pelvis October 26, 2015. T-spine radiograph January 01, 2017, November 09, 2016. FINDINGS: Chest: Lymph Nodes and Mediastinum: Enlarged right upper paratracheal, bilateral lower paratracheal, subcarinal and right hilar lymph node, unchanged in size and number, measuring up to 14 mm in short axis. No me diastinal mass lesions. No suspicious thyroid findings. Cardiovascular: Dilated right atrium and ventricle. Multivessel calcified coronary atherosclerosis. Heart is normal in caliber and course. Main pulmonary artery is normal in caliber. Lungs and Pleura: Central airways are patent. Stable 10 mm basal medial right lower lobe solid partially calcified pulmonary nodule (series 3 image 71). No new pulmonary nodule. Musculoskeletal and Body Wall: No clearly aggressive bone lesions . Chronic T10 superior endplate compression deformity with 75% vertebral height loss. Abdomen/Pelvis: Solid Abdominal Organs: Normal liver, spleen, adrenal glands, pancreas. Prior cholecystectomy. Subcentimeter hypoenhancing renal lesions to o small to characterize. GI Tract/Mesentery/Peritoneum: Nondilated small and large bowel. Prior appendectomy.. Pelvic Viscera: Prior total abdominal hysterectomy and bilateral salpingo-oophorectomy. No suspicious mass within the pelvis. Mi ldly distended urinary bladder. Lymph Nodes/Vasculature: Postoperative CT size criteria. Moderate calcified atherosclerosis within the abdominal aorta and bilateral common iliac arteries. Free Fluid: No ascites. Musculoskeletal and Bod y Wall: Degenerative changes of the spine. IMPRESSION: Chest: No evidence of disease progression. Stable partially calcified right lower lobe pulmonary nodule. Stable mediastinal and right hilar lymphadenopathy, which are essentially un changed since October 2015. Abdomen/Pelvis: No evidence of disease progression. Prior total abdominal hysterectomy and bilateral salpingo-oophorectomy. CRITICAL RESULT: No. COMMUNICATION: Per this written report. By electronic ally signing this report, I, the attending physician, attest that I have personally reviewed the images/data for the above examination(s) and agree with the final edited report. Verified by: MOHSEN THOMPSON M.D. on May 18 2020 2:59P Trans cribed by: OZZIE on May 18 2020 2:00P Dictated by: PAULINO GRIGGS M.D. on May 18 2020 2:00P Cony De La Cruz COMMISSARY SUPERINTENDENT, DNP IMG CT PROCEDURES Fi nal Result from Last 3 Months or Most Recently Relevant to [place] [address] Care Teams Manager Diversity Relationship Specialty Start Date End Date Sae Lai MD [address] [place] [address] [address]1 [address] ANDREIA Cruz [id number] PCP - General 04/08/21
== END 2025-06-09 23:59 | disposition home or self-care (01) ==
LOC: LAB.DROPOF 06-10 08:57
PROVIDERS: PCP Nurse Practitioner Family; Visit Provider Nurse Practitioner Family
DX: D50.9 Iron deficiency anemia, unspecified (principal); E55.9 Vitamin D deficiency, unspecified; R63.4 Abnormal weight loss; R73.9 Hyperglycemia, unspecified; D68.59 Other primary thrombophilia
CPT/HCPCS: 80053; 82306; 82607; 82728; 83036; 83735; 84443; 85025